=== PATIENT | male | born 1960 | race Hispanic/Latino ===

== ENCOUNTER 2017-04-09 18:25 | Emergency (ER) | payer SELFPAY ==
[2017-04-09] MEDS ORDERED: ACETAMINOPHEN EXTRA STRENGTH 500 MG TABLET ONE (19:38)
[2017-04-09 20:00] LABS: BASOPHILS % (AUTO) 0.3 % (0.0-5.0); HEMATOCRIT 48.1 % (42-54); LYMPHOCYTES % (AUTO) 10.2 % (21.0-51.0); MEAN CORPUSCULAR HEMOGLOBIN 29.7 pg (27.0-33.0); MEAN CORPUSCULAR HGB CONC 33.9 g/dL (32.0-36.0); MEAN CORPUSCULAR VOLUME 87.8 fL (79-99); MONOCYTES % (AUTO) 9.1 % (3.0-13.0); NEUTROPHILS % (AUTO) 80.4 % (40.0-77.0); PLATELET COUNT (AUTO) 147 K/uL (130-400); RED BLOOD CELL COUNT(AUTO) 5.49 MIL/uL (4.50-6.20); RED CELL DISTRIBUTION WIDTH 14.1 % (11.0-15.5); WHITE BLOOD COUNT (AUTO) 5.6 K/uL (4.8-10.8)
[2017-04-09 20:10] LABS: INR 1.02 (0.85-1.15); PARTIAL THROMBOPLASTIN TIME 29.9 SEC (26.3-35.5); PROTHROMBIN TIME 10.7 SEC (9.6-11.6)
[2017-04-09 20:11] LABS: CARBON DIOXIDE 24 mmol/L (21-32); CHLORIDE 95 mmol/L (101-111); CREATININE 1.1 mg/dL (0.5-1.5); GLOMERULAR FILTR. RATE CALC 74 mL/min (>60); GLUCOSE,RANDOM 117 mg/dL (70-105); SODIUM SERUM 128 mmol/L (136-145); UREA NITROGEN, BLOOD 16 mg/dL (7-18)
[2017-04-09] MEDS ORDERED: DiphenhydrAMINE HCL 50 MG/ML VIAL ONE (20:11)
[2017-04-09 20:24] LABS: ALANINE AMINOTRANSFERASE 122 U/L (12-78); ALBUMIN 3.4 g/dL (3.5-5.0); ASPARTATE AMINOTRANSFERASE 181 U/L (10-37); BILIRUBIN,TOTAL 0.8 mg/dL (0.2-1.0); CREATINE KINASE MB < 0.5 ng/mL (0.5-3.6); CREATINE KINASE, TOTAL 322 U/L (21-232); TOTAL PROTEIN, SERUM 7.8 g/dL (6.0-8.3)
[2017-04-09] MEDS ORDERED: IPRATROPIUM/ALBUTEROL SULFATE 3 ML SOLUTION IH ONE (20:54)
[2017-04-09] MEDS ORDERED: GUAIFENESIN-DM 200/20 MG 10 ML ONE (21:13)
== END 2017-04-09 21:34 | disposition home or self-care (01) ==
LOC: EDH 18:25
DX: J06.9 Acute upper respiratory infection, unspecified (principal); R50.9 Fever, unspecified; R19.7 Diarrhea, unspecified; Z88.6 Allergy status to analgesic agent; Z72.0 Tobacco use; Z98.890 Other specified postprocedural states
CPT/HCPCS: 36415; 71045; 80053; 82550; 82553; 84484; 85025; 85610; 85730; 87804 ×2; 93005; 94640; 96374; 99285; J1200

== ENCOUNTER 2018-11-23 19:06 | Emergency (ER) | payer OTHER ==
[2018-11-23] MEDS ORDERED: KETOROLAC TROMETHAMINE 30MG/ML ONE (20:02)
[2018-11-23] MEDS ORDERED: ONDANSETRON HCL 4 MG/2 ML VIAL ONE (20:02)
[2018-11-23] MEDS ORDERED: HYOSCYAMINE SULFATE 0.125 MG TAB.SUBL SL ONE (20:03)
[2018-11-23] MEDS ORDERED: SODIUM CHLORIDE 0.9% 1000ML 1,000 ML IV ONE (20:03)
[2018-11-23 20:07] LABS: BASOPHILS % (AUTO) 0.9 % (0.0-5.0); EOSINOPHILS % (AUTO) 2.6 % (0.0-8.0); HEMATOCRIT 48.3 % (42-54); LYMPHOCYTES % (AUTO) 26.6 % (21.0-51.0); MEAN CORPUSCULAR HEMOGLOBIN 30.9 pg (27.0-33.0); MEAN CORPUSCULAR HGB CONC 34.5 g/dL (32.0-36.0); MEAN CORPUSCULAR VOLUME 89.4 fL (79-99); MONOCYTES % (AUTO) 9.2 % (3.0-13.0); NEUTROPHILS % (AUTO) 60.7 % (40.0-77.0); PLATELET COUNT (AUTO) 230 K/uL (130-400); RED CELL DISTRIBUTION WIDTH 13.3 % (11.0-15.5); WHITE BLOOD COUNT (AUTO) 9.9 K/uL (4.8-10.8)
[2018-11-23 20:15] LABS: POTASSIUM 3.9 mmol/L (3.5-5.1)
[2018-11-23 20:16] LABS: INR 0.96 (0.85-1.15); PARTIAL THROMBOPLASTIN TIME 26.4 SEC (26.3-35.5); PROTHROMBIN TIME 10.1 SEC (9.6-11.6)
[2018-11-23 20:19] LABS: BILIRUBIN,TOTAL 0.7 mg/dL (0.2-1.0); TOTAL PROTEIN, SERUM 7.9 g/dL (6.0-8.3)
[2018-11-23 20:21] LABS: APPEARANCE,URINE Cloudy (CLEAR); BILIRUBIN,URINE Negative (NEGATIVE); COLOR,URINE Dark Yellow (YELLOW); GLUCOSE, URINE (UA) Negative (NEGATIVE); KETONES,URINE Negative (NEGATIVE); LEUKOCYTE ESTERASE ,URINE Negative (NEGATIVE); NITRATE,URINE Negative (NEGATIVE); OCCULT BLOOD,URINE Negative (NEGATIVE); PH,URINE 6.5 (5.0-8.0); PROTEIN,URINE Trace mg/dL (NEGATIVE)
[2018-11-23] MEDS ORDERED: LIDOCAINE HCL 2% VISCOUS 15 ML UDCUP ONE (20:26)
[2018-11-23] MEDS ORDERED: MAG HYDROX/AL HYDROX/SIMETH ES 30 ML SUSP UDCUP ONE (20:26)
[2018-11-23 20:44] LABS: AMORPHOUS SEDIMENT,UR Moderate /LPF (None Seen); BACTERIA,URINE Few /HPF (None Seen); MUCUS,URINE Few LPF (None Seen); SQUAMOUS EPITHELIAL CELL,UR 0-2 /HPF (0-2)
== END 2018-11-23 20:56 | disposition home or self-care (01) ==
LOC: EDH 19:06
DX: K29.00 Acute gastritis without bleeding (principal); R10.13 Epigastric pain; Z72.0 Tobacco use
CPT/HCPCS: 36415; 76705; 80053; 81001; 83690; 85025; 85610; 85730; 96361; 96374; 99285; J1885; J2405; J7030

== ENCOUNTER 2018-11-29 12:50 | Emergency (ER) | payer SELFPAY ==
[2018-11-29] MEDS ORDERED: ONDANSETRON HCL 4 MG/2 ML VIAL ONE (13:03)
[2018-11-29] MEDS ORDERED: MORPHINE SULFATE 4 MG/1ML SYG ONE (13:03)
[2018-11-29] MEDS ORDERED: SODIUM CHLORIDE 0.9% 1000ML 1,000 ML IV ONE (13:04)
[2018-11-29 13:33] LABS: BASOPHILS % (AUTO) 1.1 % (0.0-5.0); EOSINOPHILS % (AUTO) 1.5 % (0.0-8.0); HEMATOCRIT 49.9 % (42-54); LYMPHOCYTES % (AUTO) 26.7 % (21.0-51.0); MEAN CORPUSCULAR HEMOGLOBIN 30.8 pg (27.0-33.0); MEAN CORPUSCULAR HGB CONC 34.7 g/dL (32.0-36.0); MEAN CORPUSCULAR VOLUME 88.6 fL (79-99); MONOCYTES % (AUTO) 8.2 % (3.0-13.0); NEUTROPHILS % (AUTO) 62.5 % (40.0-77.0); NUCLEATED RED BLOOD CELLS 0.1 % (0.0-0.19); PLATELET COUNT (AUTO) 257 K/uL (130-400); RED BLOOD CELL COUNT(AUTO) 5.63 MIL/uL (4.50-6.20); RED CELL DISTRIBUTION WIDTH 13.1 % (11.0-15.5); WHITE BLOOD COUNT (AUTO) 10.2 K/uL (4.8-10.8)
[2018-11-29 13:43] LABS: CREATININE 0.9 mg/dL (0.5-1.5); POTASSIUM 3.9 mmol/L (3.5-5.1)
[2018-11-29 13:44] LABS: INR 1.02 (0.85-1.15); PARTIAL THROMBOPLASTIN TIME 28.2 SEC (26.3-35.5); PROTHROMBIN TIME 10.7 SEC (9.6-11.6)
[2018-11-29 13:49] LABS: ALBUMIN 4.5 g/dL (3.5-5.0); BILIRUBIN,DIRECT 0.2 mg/dL (0.0-0.3); BILIRUBIN,TOTAL 1.4 mg/dL (0.2-1.0); TOTAL PROTEIN, SERUM 8.8 g/dL (6.0-8.3)
[2018-11-29 13:51] LABS: APPEARANCE,URINE Clear (CLEAR); BILIRUBIN,URINE Negative (NEGATIVE); COLOR,URINE Yellow (YELLOW); GLUCOSE, URINE (UA) Negative (NEGATIVE); KETONES,URINE 15 mg/dL (NEGATIVE); LEUKOCYTE ESTERASE ,URINE Negative (NEGATIVE); NITRATE,URINE Negative (NEGATIVE); OCCULT BLOOD,URINE Negative (NEGATIVE); PROTEIN,URINE POS 1+ mg/dL (NEGATIVE)
[2018-11-29 13:58] LABS: AMPHET/METH SCREEN,URINE NEGATIVE (NEGATIVE); BARBITURATE SCREEN, URINE NEGATIVE (NEGATIVE); BENZODIAZEPINES SCREEN,URINE NEGATIVE (NEGATIVE); CANNABINOID SCREEN,URINE NEGATIVE (NEGATIVE); COCAINE SCREEN,URINE NEGATIVE (NEGATIVE); OPIATE SCREEN,URINE POSITIVE (NEGATIVE); PHENCYCLIDINE SCREEN,URINE NEGATIVE (NEGATIVE)
[2018-11-29 14:13] LABS: BACTERIA,URINE Rare /HPF (None Seen); RBC,URINE 0-1 /HPF (0-1); SPERM,URINE Few /HPF (None Seen); SQUAMOUS EPITHELIAL CELL,UR Few /HPF (0-2); WBC,URINE 0-1 /HPF (0-1)
[2018-11-29] MEDS ORDERED: DICYCLOMINE HCL 10 MG/ML 2ML AMP IM ONE (15:02)
[2018-11-29] MEDS ORDERED: HALOPERIDOL LACTATE 5 MG/ML VIAL ONE (15:10)
== END 2018-11-29 16:10 | disposition home or self-care (01) ==
LOC: EDH 12:50
DX: R10.13 Epigastric pain (principal); G89.29 Other chronic pain; R11.2 Nausea with vomiting, unspecified; Z88.6 Allergy status to analgesic agent; Z72.0 Tobacco use
CPT/HCPCS: 36415; 74176; 80048; 80076; 80305; 81001; 82550; 83690; 84484; 85025; 85610; 85730; 93005; 96361; 96372; 96374; 96375; 99285; J0500; J1630; J2270; J2405; J7030

== ENCOUNTER 2018-12-30 02:38 | Inpatient (IN) | payer OTHER, SELFPAY ==
[~2018-12-30] VITALS: Ht 177.8 cm; Wt 64.0 kg
[2018-12-30] VITALS (7 sets, daily range): BP systolic 157–189; BP diastolic 89–108
[2018-12-30] MEDS ORDERED: LIDOCAINE HCL 2% VISCOUS 15 ML UDCUP ONE (02:54)
[2018-12-30] MEDS ORDERED: MAG HYDROX/AL HYDROX/SIMETH ES 30 ML SUSP UDCUP ONE (02:54)
[2018-12-30] MEDS ORDERED: FAMOTIDINE/PF 20 MG/2 ML VIAL IV ONE ×2 (02:55→09:54)
[2018-12-30] MEDS ORDERED: ONDANSETRON HCL 4 MG/2 ML VIAL ONE (02:55)
[2018-12-30] MEDS ORDERED: SODIUM CHLORIDE 0.9% 1000ML 1,000 ML IV ONE ×2 (02:55→04:29)
[2018-12-30 03:04] LABS: BASOPHILS % (AUTO) 0.6 % (0.0-5.0); EOSINOPHILS % (AUTO) 0.4 % (0.0-8.0); HEMATOCRIT 46.5 % (42-54); LYMPHOCYTES % (AUTO) 5.3 % (21.0-51.0); MEAN CORPUSCULAR HEMOGLOBIN 30.1 pg (27.0-33.0); MEAN CORPUSCULAR HGB CONC 34.3 g/dL (32.0-36.0); MEAN CORPUSCULAR VOLUME 87.9 fL (79-99); MONOCYTES % (AUTO) 5.1 % (3.0-13.0); NEUTROPHILS % (AUTO) 88.6 % (40.0-77.0); PLATELET COUNT (AUTO) 273 K/uL (130-400); RED BLOOD CELL COUNT(AUTO) 5.29 MIL/uL (4.50-6.20); RED CELL DISTRIBUTION WIDTH 13.1 % (11.0-15.5); WHITE BLOOD COUNT (AUTO) 15.4 K/uL (4.8-10.8)
[2018-12-30 03:08] LABS: POTASSIUM 3.1 mmol/L (3.5-5.1)
[2018-12-30 03:13] LABS: ALBUMIN 4.4 g/dL (3.5-5.0); BILIRUBIN,TOTAL 1.7 mg/dL (0.2-1.0); TOTAL PROTEIN, SERUM 9.2 g/dL (6.0-8.3)
[2018-12-30] MEDS ORDERED: DiphenhydrAMINE HCL 50 MG/ML VIAL ONE (03:13)
[2018-12-30] MEDS ORDERED: PROCHLORPERAZINE EDISYLATE 10 MG/2 ML VIAL ONE (03:13)
[2018-12-30 03:32] LABS: AMPHET/METH SCREEN,URINE NEGATIVE (NEGATIVE); BARBITURATE SCREEN, URINE NEGATIVE (NEGATIVE); BENZODIAZEPINES SCREEN,URINE NEGATIVE (NEGATIVE); CANNABINOID SCREEN,URINE NEGATIVE (NEGATIVE); COCAINE SCREEN,URINE NEGATIVE (NEGATIVE); OPIATE SCREEN,URINE NEGATIVE (NEGATIVE); PHENCYCLIDINE SCREEN,URINE NEGATIVE (NEGATIVE)
[2018-12-30] MEDS ORDERED: MEPERIDINE-PF 50 MG/ML SYG ONE (03:42)
[2018-12-30] MEDS ORDERED: HALOPERIDOL LACTATE 5 MG/ML VIAL ONE (03:45)
[2018-12-30] MEDS ORDERED: IOHEXOL-350 75 ML VIAL IV ONE (04:23)
[2018-12-30] MEDS: LACTATED RINGERS 1000ML 1,000 ML IV SCH ×2 (05:30→17:30)
[2018-12-30] MEDS ORDERED: ONDANSETRON HCL 4 MG/2 ML VIAL IV PRN (05:30)
[2018-12-30] MEDS ORDERED: HYDROMORPHONE 4MG/ML 1ML VIAL IVP PRN (05:30)
[2018-12-30 05:32] LABS: APPEARANCE,URINE Clear (CLEAR); BILIRUBIN,URINE Small (NEGATIVE); COLOR,URINE Dark Yellow (YELLOW); GLUCOSE, URINE (UA) TRACE mg/dL (NEGATIVE); KETONES,URINE >=160 mg/dL (NEGATIVE); LEUKOCYTE ESTERASE ,URINE Trace (NEGATIVE); NITRATE,URINE Negative (NEGATIVE); OCCULT BLOOD,URINE Negative (NEGATIVE); PH,URINE 8.5 (5.0-8.0); PROTEIN,URINE POS 2+ mg/dL (NEGATIVE)
[2018-12-30] MEDS ORDERED: HYDROMORPHONE 1 MG/1 ML AMP ONE ×2 (05:45→10:12)
[2018-12-30] MEDS ORDERED: HYDRALAZINE HCL 20 MG/ML VIAL ONE (06:04)
[2018-12-30 06:55] LABS: RBC,URINE 0-1 /HPF (0-1)
[2018-12-30 06:56] LABS: BACTERIA,URINE Rare /HPF (None Seen); MUCUS,URINE Many LPF (None Seen); SQUAMOUS EPITHELIAL CELL,UR Rare /HPF (0-2)
[2018-12-30] MEDS: FAMOTIDINE/PF 20 MG/2 ML VIAL IV SCH ×2 (09:00→20:29)
[2018-12-30] MEDS: LISINOPRIL 10 MG TABLET PO SCH ×2 (09:00→17:27)
[2018-12-30] MEDS: HYDROCHLOROTHIAZIDE 25 MG TABLET PO SCH (09:00)
[2018-12-30] MEDS ORDERED: LISINOPRIL 5 MG TABLET ONE (09:41)
[2018-12-30] MEDS ORDERED: HYDROCHLOROTHIAZIDE 25 MG TABLET ONE (09:42)
[2018-12-30] MEDS ORDERED: POTASSIUM CHLORIDE 20MEQ/100ML 100 ML IV ONE (09:54)
[2018-12-30] MEDS ORDERED: HYDROMORPHONE HCL 0.5 MG/0.5 ML ML ONE (13:57)
[2018-12-30] MEDS: LIDOCAINE HCL-MPF 1% 2ML VIAL IV PRN (15:46)
[2018-12-30] MEDS: POTASSIUM CHLORIDE 20MEQ/100ML 100 ML IV PRN (15:47)
[2018-12-30] MEDS: HYDROMORPHONE HCL 0.5 MG/0.5 ML ML IVP PRN ×2 (19:43→23:49)
[2018-12-30] MEDS: HYDRALAZINE HCL 20 MG/ML VIAL IV PRN (20:43)
[2018-12-31] VITALS (9 sets, daily range): BP systolic 141–185; BP diastolic 79–105
[2018-12-31] MEDS: HYDROMORPHONE HCL 0.5 MG/0.5 ML ML IVP PRN ×2 (03:56→11:20)
[2018-12-31 05:02] LABS: BASOPHILS % (AUTO) 0.3 % (0.0-5.0); EOSINOPHILS % (AUTO) 1.7 % (0.0-8.0); HEMATOCRIT 42.1 % (42-54); LYMPHOCYTES % (AUTO) 8.3 % (21.0-51.0); MEAN CORPUSCULAR HEMOGLOBIN 29.8 pg (27.0-33.0); MEAN CORPUSCULAR HGB CONC 33.6 g/dL (32.0-36.0); MEAN CORPUSCULAR VOLUME 88.5 fL (79-99); MONOCYTES % (AUTO) 8.5 % (3.0-13.0); NEUTROPHILS % (AUTO) 81.2 % (40.0-77.0); PLATELET COUNT (AUTO) 249 K/uL (130-400); RED BLOOD CELL COUNT(AUTO) 4.75 MIL/uL (4.50-6.20); RED CELL DISTRIBUTION WIDTH 13.1 % (11.0-15.5); WHITE BLOOD COUNT (AUTO) 14.7 K/uL (4.8-10.8)
[2018-12-31 05:32] LABS: ALBUMIN 3.5 g/dL (3.5-5.0); BILIRUBIN,TOTAL 0.9 mg/dL (0.2-1.0); CREATININE 0.7 mg/dL (0.5-1.5); MAGNESIUM 2.1 mg/dL (1.80-2.40); POTASSIUM 3.1 mmol/L (3.5-5.1); TOTAL PROTEIN, SERUM 7.9 g/dL (6.0-8.3)
[2018-12-31 05:37] LABS: HEMOGLOBIN A1C 6.3 % (4.0-6.0)
[2018-12-31] MEDS: LIDOCAINE HCL-MPF 1% 2ML VIAL IV PRN (05:56)
[2018-12-31] MEDS: POTASSIUM CHLORIDE 20MEQ/100ML 100 ML IV PRN (05:57)
[2018-12-31] MEDS ORDERED: HYDROMORPHONE 1 MG/1 ML AMP IVP SCH (06:30)
[2018-12-31] MEDS: HYDROCHLOROTHIAZIDE 25 MG TABLET PO SCH (08:53)
[2018-12-31] MEDS: FAMOTIDINE/PF 20 MG/2 ML VIAL IV SCH ×2 (08:53→19:49)
[2018-12-31] MEDS: LISINOPRIL 10 MG TABLET PO SCH (08:53)
[2018-12-31] MEDS: HYDRALAZINE HCL 20 MG/ML VIAL IV PRN ×2 (11:08→21:08)
[2018-12-31] MEDS: LACTATED RINGERS 1000ML 1,000 ML IV SCH ×2 (11:08→19:50)
--- NOTE | 2018-12-31 12:17 | NUR ---
DCP CM met with pt discussed dc plans. Pt is independent prior to admission, lives at home w/spouse. Denies any equipments/services. Pt feels safe to go back home, still drives, spouse able to assist with transportation and needs as necessary. DC plan to home once stable. CM to cont to follow up. Addendum: 12/31/18 at 1218 by FRANCES HAWKINS LVN CM Amended: Links added.
--- NOTE | 2018-12-31 13:57 | NUR ---
RD NOTIFICATION DX: ACUTE PANCREATITIS. DIET: NPO. LBM: PT CLAIMS NOT TO HAVE A BM X4DAYS AGO. EMESIS EPISODES IMPROVED PER PT. PT CONTINUES WITH POOR APPETITE. PT HAVING ABDOMINAL PAIN X3 MONTHS AND NOT EATING WELL FOR 3 MONTHS PRIOR TO ADMISSION. USUAL BODY WEIGHT: 215# 3 MONTHS AGO. PT WITH 22% WEIGHT LOSS IN 3 MONTHS; INDICATION OF MALNUTRITION. THERE IS PHYSICAL EVIDENCE OF MILD FAT/ MUSCLE LOSS. RD RECOMMENDS CONTINUE NPO. ADVANCE DIET TOLERATED WHEN MEDICALLY FEASIBLE TO CLEAR LIQUIDS, FULL LIQUIDS. RD PENDING PANCREATITIS DIET AND NUTRITION EDUCATION. RD WILL CONTINUE TO MONITOR AND FOLLOW UP NEEDED. THANK YOU. Addendum: 12/31/18 at [address] RD Amended: Links added.
[2018-12-31] MEDS: HYDROMORPHONE 1 MG/1 ML AMP IVP PRN ×3 (15:49→23:57)
[2019-01-01] VITALS (7 sets, daily range): BP systolic 154–189; BP diastolic 91–107
[2019-01-01] MEDS: HYDROMORPHONE 1 MG/1 ML AMP IVP PRN ×6 (04:02→23:49)
[2019-01-01 05:35] LABS: BASOPHILS % (AUTO) 0.8 % (0.0-5.0); EOSINOPHILS % (AUTO) 2.2 % (0.0-8.0); HEMATOCRIT 40.9 % (42-54); LYMPHOCYTES % (AUTO) 8.9 % (21.0-51.0); MEAN CORPUSCULAR HEMOGLOBIN 30.1 pg (27.0-33.0); MEAN CORPUSCULAR HGB CONC 34.4 g/dL (32.0-36.0); MEAN CORPUSCULAR VOLUME 87.5 fL (79-99); NEUTROPHILS % (AUTO) 79.1 % (40.0-77.0); PLATELET COUNT (AUTO) 301 K/uL (130-400); RED BLOOD CELL COUNT(AUTO) 4.68 MIL/uL (4.50-6.20); RED CELL DISTRIBUTION WIDTH 13.4 % (11.0-15.5); WHITE BLOOD COUNT (AUTO) 14.6 K/uL (4.8-10.8)
[2019-01-01 05:55] LABS: CREATININE 0.7 mg/dL (0.5-1.5); POTASSIUM 3.3 mmol/L (3.5-5.1)
[2019-01-01] MEDS: POTASSIUM CHLORIDE 20MEQ/100ML 100 ML IV PRN ×2 (06:09→20:12)
[2019-01-01] MEDS: LISINOPRIL 10 MG TABLET PO SCH (10:15)
[2019-01-01] MEDS: FAMOTIDINE/PF 20 MG/2 ML VIAL IV SCH ×2 (10:16→20:11)
[2019-01-01] MEDS: HYDROCHLOROTHIAZIDE 25 MG TABLET PO SCH (10:16)
[2019-01-01] MEDS: HYDRALAZINE HCL 20 MG/ML VIAL IV PRN ×2 (10:19→20:12)
[2019-01-01] MEDS: LACTATED RINGERS 1000ML 1,000 ML IV SCH ×2 (10:50→20:11)
[2019-01-02] VITALS: BP_SYST 130; BP_SYST 145; BP_DIAS 73; BP_DIAS 92
[2019-01-02] MEDS: HYDROMORPHONE 1 MG/1 ML AMP IVP PRN ×4 (03:54→18:00)
[2019-01-02 04:00] VITALS: BP 148/92
[2019-01-02 06:31] LABS: BASOPHILS % (AUTO) 0.5 % (0.0-5.0); EOSINOPHILS % (AUTO) 3.3 % (0.0-8.0); HEMATOCRIT 41.2 % (42-54); LYMPHOCYTES % (AUTO) 10.5 % (21.0-51.0); MEAN CORPUSCULAR HEMOGLOBIN 30.4 pg (27.0-33.0); MEAN CORPUSCULAR HGB CONC 34.7 g/dL (32.0-36.0); MEAN CORPUSCULAR VOLUME 87.7 fL (79-99); NEUTROPHILS % (AUTO) 74.7 % (40.0-77.0); PLATELET COUNT (AUTO) 294 K/uL (130-400); RED BLOOD CELL COUNT(AUTO) 4.69 MIL/uL (4.50-6.20); RED CELL DISTRIBUTION WIDTH 13.1 % (11.0-15.5)
[2019-01-02 07:54] VITALS: BP 163/105
--- NOTE | 2019-01-02 08:00 | NUR ---
AM SHIFT ASSESSMENT, C/O OF SEVERE PAIN TO ABD.
[2019-01-02] MEDS: HYDROCHLOROTHIAZIDE 25 MG TABLET PO SCH (08:23)
[2019-01-02] MEDS: FAMOTIDINE/PF 20 MG/2 ML VIAL IV SCH ×2 (08:23→20:27)
[2019-01-02] MEDS: LISINOPRIL 10 MG TABLET PO SCH (08:23)
[2019-01-02 08:50] LABS: CREATININE 0.7 mg/dL (0.5-1.5)
[2019-01-02 09:59] LABS: POTASSIUM 3.7 mmol/L (3.5-5.1)
[2019-01-02 12:00] VITALS: BP 171/108
[2019-01-02] MEDS: LACTATED RINGERS 1000ML 1,000 ML IV SCH (12:05)
[2019-01-02] MEDS: CEFTRIAXONE SODIUM 2 GM VIAL IVP SCH (13:14)
[2019-01-02] MEDS: HYDRALAZINE HCL 20 MG/ML VIAL IV PRN (13:14)
[2019-01-02] MEDS ORDERED: BISACODYL 10 MG SUPP.RECT RC PRN (13:15)
--- NOTE | 2019-01-02 14:30 | NUR ---
AFTER DOSE F TORADOL GIVEN VOICED MUCH PAIN RELIEF, WAS FINALLY ABLE TO REST.
[2019-01-02] MEDS: KETOROLAC TROMETHAMINE 30MG/ML IM PRN ×2 (14:32→21:13)
[2019-01-02 16:00] VITALS: BP 132/81
[2019-01-02 20:00] VITALS: BP 138/80
[2019-01-03] VITALS (7 sets, daily range): BP systolic 130–181; BP diastolic 73–96
[2019-01-03] MEDS: HYDROMORPHONE 1 MG/1 ML AMP IVP PRN ×3 (02:18→20:11)
[2019-01-03] MEDS: LACTATED RINGERS 1000ML 1,000 ML IV SCH (02:21)
[2019-01-03] MEDS: KETOROLAC TROMETHAMINE 30MG/ML IM PRN ×2 (04:19→11:45)
[2019-01-03 04:37] LABS: BASOPHILS % (AUTO) 0.9 % (0.0-5.0); EOSINOPHILS % (AUTO) 5.3 % (0.0-8.0); HEMATOCRIT 39.6 % (42-54); LYMPHOCYTES % (AUTO) 12.9 % (21.0-51.0); MEAN CORPUSCULAR HEMOGLOBIN 30.1 pg (27.0-33.0); MEAN CORPUSCULAR HGB CONC 34.4 g/dL (32.0-36.0); MEAN CORPUSCULAR VOLUME 87.6 fL (79-99); MONOCYTES % (AUTO) 10.5 % (3.0-13.0); NEUTROPHILS % (AUTO) 70.4 % (40.0-77.0); PLATELET COUNT (AUTO) 283 K/uL (130-400); RED BLOOD CELL COUNT(AUTO) 4.53 MIL/uL (4.50-6.20); RED CELL DISTRIBUTION WIDTH 13.5 % (11.0-15.5); WHITE BLOOD COUNT (AUTO) 12.1 K/uL (4.8-10.8)
[2019-01-03 05:07] LABS: CREATININE 0.8 mg/dL (0.5-1.5); POTASSIUM 3.2 mmol/L (3.5-5.1)
[2019-01-03] MEDS: POTASSIUM CHLORIDE 20MEQ/100ML 100 ML IV PRN (05:44)
[2019-01-03] MEDS ORDERED: POTASSIUM CHLORIDE 20 MEQ ERTAB PO ONE (09:13)
[2019-01-03] MEDS: HYDROCHLOROTHIAZIDE 25 MG TABLET PO SCH (09:20)
[2019-01-03] MEDS: LISINOPRIL 10 MG TABLET PO SCH (09:20)
[2019-01-03] MEDS: FAMOTIDINE/PF 20 MG/2 ML VIAL IV SCH ×2 (09:21→20:12)
[2019-01-03] MEDS: CEFTRIAXONE SODIUM 2 GM VIAL IVP SCH (11:45)
[2019-01-03] MEDS: HYDRALAZINE HCL 20 MG/ML VIAL IV PRN (11:45)
[2019-01-03] MEDS: DEXTROSE 5 % AND 0.9 % NACL 1,000 ML IV SCH (15:59)
[2019-01-03] MEDS: KETOROLAC TROMETHAMINE 30MG/ML IV PRN ×2 (16:00→22:57)
[2019-01-04 00:37] VITALS: BP 155/87
[2019-01-04] MEDS: HYDROMORPHONE 1 MG/1 ML AMP IVP PRN ×6 (01:20→22:55)
[2019-01-04] MEDS: DEXTROSE 5 % AND 0.9 % NACL 1,000 ML IV SCH ×4 (01:25→19:58)
[2019-01-04 03:49] VITALS: BP 157/84
[2019-01-04] MEDS: KETOROLAC TROMETHAMINE 30MG/ML IV PRN ×3 (04:32→19:57)
[2019-01-04 05:02] LABS: BASOPHILS % (AUTO) 0.9 % (0.0-5.0); EOSINOPHILS % (AUTO) 6.6 % (0.0-8.0); HEMATOCRIT 36.9 % (42-54); LYMPHOCYTES % (AUTO) 20.2 % (21.0-51.0); MEAN CORPUSCULAR HEMOGLOBIN 30.7 pg (27.0-33.0); MEAN CORPUSCULAR HGB CONC 35.2 g/dL (32.0-36.0); MEAN CORPUSCULAR VOLUME 87.4 fL (79-99); NEUTROPHILS % (AUTO) 60.3 % (40.0-77.0); PLATELET COUNT (AUTO) 263 K/uL (130-400); RED BLOOD CELL COUNT(AUTO) 4.22 MIL/uL (4.50-6.20); RED CELL DISTRIBUTION WIDTH 12.9 % (11.0-15.5); WHITE BLOOD COUNT (AUTO) 8.9 K/uL (4.8-10.8)
[2019-01-04 05:31] LABS: ALBUMIN 2.7 g/dL (3.5-5.0); BILIRUBIN,TOTAL 1.1 mg/dL (0.2-1.0); CREATININE 0.7 mg/dL (0.5-1.5); TOTAL PROTEIN, SERUM 6.9 g/dL (6.0-8.3)
[2019-01-04 05:35] LABS: POTASSIUM 2.9 mmol/L (3.5-5.1)
[2019-01-04] MEDS: LIDOCAINE HCL-MPF 1% 2ML VIAL IV PRN ×2 (05:46→08:31)
[2019-01-04] MEDS: POTASSIUM CHLORIDE 20MEQ/100ML 100 ML IV PRN ×3 (05:46→22:05)
[2019-01-04 07:00] VITALS: BP 149/82
[2019-01-04] MEDS: FAMOTIDINE/PF 20 MG/2 ML VIAL IV SCH ×2 (08:30→22:05)
[2019-01-04] MEDS ORDERED: GADODIAMIDE 10 MMOL/20 ML VIAL IV ONE (08:56)
[2019-01-04] MEDS: HYDROCHLOROTHIAZIDE 25 MG TABLET PO SCH (10:31)
[2019-01-04] MEDS: LISINOPRIL 10 MG TABLET PO SCH (10:31)
[2019-01-04 12:00] VITALS: BP 172/90
[2019-01-04] MEDS: CEFTRIAXONE SODIUM 2 GM VIAL IVP SCH (12:58)
[2019-01-04] MEDS ORDERED: POTASSIUM CHLORIDE 20MEQ/100ML 100 ML IV PRN ×2 (14:15)
[2019-01-04 16:00] VITALS: BP 165/82
[2019-01-04 20:00] VITALS: BP 188/90
--- NOTE | 2019-01-04 22:30 | NUR ---
potassium spoke to STREET ROLLER ENGINEER organic extractions technician Judie Dias about patient's critical potassium level of 2.9. He said to continue the potassium protocol replacement. Regarding patient's continuous abdominal pain, he said to continue alternating between Dilaudid and Ketoralac pain medications throughout the night.
[2019-01-04] MEDS: HYDRALAZINE HCL 20 MG/ML VIAL IV PRN (22:35)
[2019-01-05] VITALS (7 sets, daily range): BP systolic 132–180; BP diastolic 74–96
[2019-01-05] MEDS: POTASSIUM CHLORIDE 20MEQ/100ML 100 ML IV PRN ×2 (01:15→09:39)
[2019-01-05] MEDS: LIDOCAINE HCL-MPF 1% 2ML VIAL IV PRN ×3 (01:19→09:39)
[2019-01-05] MEDS: KETOROLAC TROMETHAMINE 30MG/ML IV PRN ×5 (02:33→23:04)
[2019-01-05] MEDS: DEXTROSE 5 % AND 0.9 % NACL 1,000 ML IV SCH ×2 (02:56→11:34)
[2019-01-05] MEDS: HYDROMORPHONE 1 MG/1 ML AMP IVP PRN ×3 (03:32→20:20)
[2019-01-05 05:11] LABS: EOSINOPHILS % (AUTO) 5.5 % (0.0-8.0); HEMATOCRIT 35.1 % (42-54); LYMPHOCYTES % (AUTO) 13.9 % (21.0-51.0); MEAN CORPUSCULAR HEMOGLOBIN 30.9 pg (27.0-33.0); MEAN CORPUSCULAR HGB CONC 35.9 g/dL (32.0-36.0); MEAN CORPUSCULAR VOLUME 86.1 fL (79-99); MONOCYTES % (AUTO) 11.4 % (3.0-13.0); NEUTROPHILS % (AUTO) 68.2 % (40.0-77.0); PLATELET COUNT (AUTO) 294 K/uL (130-400); RED BLOOD CELL COUNT(AUTO) 4.08 MIL/uL (4.50-6.20); RED CELL DISTRIBUTION WIDTH 12.9 % (11.0-15.5); WHITE BLOOD COUNT (AUTO) 8.1 K/uL (4.8-10.8)
[2019-01-05 05:25] LABS: ALBUMIN 2.8 g/dL (3.5-5.0); CREATININE 0.6 mg/dL (0.5-1.5); MAGNESIUM 1.6 mg/dL (1.80-2.40); POTASSIUM 3.3 mmol/L (3.5-5.1); TOTAL PROTEIN, SERUM 7.1 g/dL (6.0-8.3)
[2019-01-05] MEDS: MAGNESIUM 2GM PREMIX 50ML 50 ML IV PRN (06:19)
[2019-01-05] MEDS: FAMOTIDINE/PF 20 MG/2 ML VIAL IV SCH ×2 (09:37→20:19)
[2019-01-05] MEDS: LISINOPRIL 10 MG TABLET PO SCH (09:38)
[2019-01-05] MEDS: HYDROCHLOROTHIAZIDE 25 MG TABLET PO SCH (09:50)
[2019-01-05] MEDS: CEFTRIAXONE SODIUM 2 GM VIAL IVP SCH (11:34)
--- NOTE | 2019-01-05 13:30 | NUR ---
Received verbal order from Dr. Nicholas for Dobhoff tube to be placed, leave metal wire inserted, CXR to verify placement and not to be used until in small intestine. Dobhoff tube placed by Jerry Sorenson RN to [facility] with patient assisting with swallowing motion. CXR ordered to verify placement. Pt reports feeling tube in back of throat. No coiling noted at back of throat. Tolerated procedure.
--- NOTE | 2019-01-05 14:49 | NUR ---
RD FOLLOW UP Pt NPO X6days; Recommend Altered Means Nutrition Pt to initiate dobhoff trials, low rate tube feeding as per RN. Recommend Jevity 1.5, continuous, initiate 10mls/hr for first 5hrs, increase by 5mls Q5hrs to goal of 25mls for at least 24hrs. Recommendations placed in Pt chart, discussed with RN. RD to follow up. If tube feedings not tolerated, Recommend TPN (Clinimix 5/15 @83mls/hr). 20% Intralipid contraindicated secondary to elevated Lipase (9605), severe pancreatitis. Pt with severe pancreatitis. Pt monitored labs: Na 135, K 3.3, Cl 100, BUN 4, Glu 125, Mg 1.60, Alb 2.8, Lipase 9605, Amylase 255. RD to continue to monitor. Please notify RD as additional nutrition concerns arise. Thank you. Addendum: 01/05/19 at [address] RD Amended: Links added.
--- NOTE | 2019-01-05 20:03 | NUR ---
dr. bernard was inform of the hida scan result; abdomanl cbd ef. no orders given but verbalized that he will put surgery consult. Addendum: 01/05/19 at 2007 by GERALD GARCÍA RN RN disregard note
--- NOTE | 2019-01-05 20:05 | NUR ---
abnormal gallbladder ef. Addendum: 01/05/19 at 2008 by GERALD GARCÍA RN RN dr. bernard notified of the hida scan result which is abdomal gallbladder ejection fraction
--- NOTE | 2019-01-05 23:20 | NUR ---
DOBHOFF cannot be inserted further: Dobhoff at level 60 and cannot be inserted further to 75-80 , since pt was complaining of pain. On- call hospitalist ( AZEEM Dias) notified thru phone and verbalized its ok not to further insert if pt is in pain. Further instructed to follow up surgery consult in AM. Day shift nurse made aware.
[2019-01-06] MEDS: DEXTROSE 5 % AND 0.9 % NACL 1,000 ML IV SCH ×3 (01:16→17:11)
[2019-01-06] MEDS: HYDROMORPHONE 1 MG/1 ML AMP IVP PRN ×5 (01:17→23:19)
[2019-01-06 04:02] VITALS: BP 157/94
[2019-01-06] MEDS: KETOROLAC TROMETHAMINE 30MG/ML IV PRN ×4 (04:43→21:16)
[2019-01-06 06:02] LABS: BASOPHILS % (AUTO) 0.8 % (0.0-5.0); EOSINOPHILS % (AUTO) 7.5 % (0.0-8.0); HEMATOCRIT 35.8 % (42-54); LYMPHOCYTES % (AUTO) 20.7 % (21.0-51.0); MEAN CORPUSCULAR HEMOGLOBIN 30.6 pg (27.0-33.0); MEAN CORPUSCULAR HGB CONC 35.2 g/dL (32.0-36.0); MONOCYTES % (AUTO) 12.1 % (3.0-13.0); NEUTROPHILS % (AUTO) 58.9 % (40.0-77.0); PLATELET COUNT (AUTO) 287 K/uL (130-400); RED BLOOD CELL COUNT(AUTO) 4.12 MIL/uL (4.50-6.20); WHITE BLOOD COUNT (AUTO) 7.5 K/uL (4.8-10.8)
[2019-01-06 06:20] LABS: ALBUMIN 2.8 g/dL (3.5-5.0); CREATININE 0.6 mg/dL (0.5-1.5); TOTAL PROTEIN, SERUM 7.1 g/dL (6.0-8.3)
[2019-01-06 06:27] LABS: POTASSIUM 2.9 mmol/L (3.5-5.1)
[2019-01-06] MEDS: LIDOCAINE HCL-MPF 1% 2ML VIAL IV PRN ×2 (06:43→21:29)
[2019-01-06] MEDS: POTASSIUM CHLORIDE 20MEQ/100ML 100 ML IV PRN ×3 (06:43→21:29)
[2019-01-06 07:30] VITALS: BP 174/89
[2019-01-06] MEDS: FAMOTIDINE/PF 20 MG/2 ML VIAL IV SCH ×2 (08:26→21:16)
[2019-01-06] MEDS: HYDROCHLOROTHIAZIDE 25 MG TABLET PO SCH (08:32)
[2019-01-06] MEDS: LISINOPRIL 10 MG TABLET PO SCH (08:32)
--- NOTE | 2019-01-06 10:47 | NUR ---
Per [facility] for Dr. Ayala and KYE Dasilva Scan showing biliary dyskinesia,no surgical intervention at this time due to elevated lipase and amylase. Stated should be strict NPO, and check with hospitalist for recommendations on Dobhoff tube.
[2019-01-06 11:00] VITALS: BP 160/99
[2019-01-06] MEDS: CEFTRIAXONE SODIUM 2 GM VIAL IVP SCH (13:04)
[2019-01-06 16:00] VITALS: BP 163/92
--- NOTE | 2019-01-06 16:08 | NUR ---
Informed Dr. Calero of patient's request to remove Dobhoff and refusal form signature attained. Reviewed patient's response to current pain medication. Verbal order received to increase Hydromorphone to 1 mg IVP, Q4h for severe pain to mid abdomen. Physician informed of Surgery's [facility] to maintain strict NPO status.
[2019-01-06] MEDS: MAGNESIUM 2GM PREMIX 50ML 50 ML IV PRN (17:12)
[2019-01-06 21:03] VITALS: BP 178/95
[2019-01-07] VITALS (8 sets, daily range): BP systolic 150–199; BP diastolic 84–113
[2019-01-07] MEDS: DEXTROSE 5 % AND 0.9 % NACL 1,000 ML IV SCH ×4 (02:49→20:46)
[2019-01-07] MEDS: KETOROLAC TROMETHAMINE 30MG/ML IV PRN ×2 (02:56→08:16)
[2019-01-07 04:32] LABS: BASOPHILS % (AUTO) 1.1 % (0.0-5.0); EOSINOPHILS % (AUTO) 8.6 % (0.0-8.0); HEMATOCRIT 36.3 % (42-54); LYMPHOCYTES % (AUTO) 17.7 % (21.0-51.0); MEAN CORPUSCULAR HEMOGLOBIN 30.2 pg (27.0-33.0); MEAN CORPUSCULAR HGB CONC 34.9 g/dL (32.0-36.0); MEAN CORPUSCULAR VOLUME 86.6 fL (79-99); MONOCYTES % (AUTO) 12.3 % (3.0-13.0); NEUTROPHILS % (AUTO) 60.3 % (40.0-77.0); PLATELET COUNT (AUTO) 288 K/uL (130-400); RED BLOOD CELL COUNT(AUTO) 4.19 MIL/uL (4.50-6.20); RED CELL DISTRIBUTION WIDTH 12.9 % (11.0-15.5); WHITE BLOOD COUNT (AUTO) 7.4 K/uL (4.8-10.8)
[2019-01-07 05:04] LABS: ALBUMIN 2.9 g/dL (3.5-5.0); CREATININE 0.7 mg/dL (0.5-1.5); POTASSIUM 3.3 mmol/L (3.5-5.1); TOTAL PROTEIN, SERUM 7.1 g/dL (6.0-8.3)
[2019-01-07] MEDS: LIDOCAINE HCL-MPF 1% 2ML VIAL IV PRN ×2 (06:04→12:38)
[2019-01-07] MEDS: POTASSIUM CHLORIDE 20MEQ/100ML 100 ML IV PRN ×2 (06:05→11:46)
[2019-01-07] MEDS: HYDROMORPHONE 1 MG/1 ML AMP IVP PRN ×3 (06:05→14:39)
[2019-01-07] MEDS: FAMOTIDINE/PF 20 MG/2 ML VIAL IV SCH (08:12)
[2019-01-07] MEDS: HYDROCHLOROTHIAZIDE 25 MG TABLET PO SCH (08:13)
[2019-01-07] MEDS: POTASSIUM CHLORIDE 20 MEQ ERTAB PO PRN (08:13)
[2019-01-07] MEDS: LISINOPRIL 10 MG TABLET PO SCH (08:13)
--- NOTE | 2019-01-07 10:45 | NUR ---
Nu Sage RN called for [place] in Dietary department for PPN recommendations and dietary consult to proceed with initiation of PPN. Left message.
--- NOTE | 2019-01-07 11:06 | NUR ---
Nutrition Follow-up: Pt. with severe pancreatitis. Nutrition consult for PPN recommendations. Pt. with Peripheral IV in place. Pt. NPO x 8 days. Pt. c/o abd. pain; no c/o N/V at this time. Labs reviewed(Na 134, K 3.3, Cl 100, BG 127, Lipase 7379, Amylase 255, Alb 2.9). LBM: 01/03/19. SR-17, elastic. Recommendations: 1) Rec. PPN Clinimix 4.25/5@80ml/hr. 2) Continue to monitor pt's nutritional status. 3) Consult RD as nutrition concerns arise. Addendum: 01/07/19 at [address] Amended: Links added.
[2019-01-07] MEDS: CEFTRIAXONE SODIUM 2 GM VIAL IVP SCH (11:44)
--- NOTE | 2019-01-07 13:30 | NUR ---
Lo Sage RN called [place] at Dietary department to inquire of dietary consult to proceed with initiation of PPN. Left message.
[2019-01-07] MEDS ORDERED: MORPHINE SULFATE 2 MG/ML 1ML SYG IVP ONE (16:15)
[2019-01-07] MEDS ORDERED: MORPHINE SULFATE 2 MG/ML 1ML SYG ONE (16:22)
[2019-01-07] MEDS: HYDRALAZINE HCL 20 MG/ML VIAL IV PRN (16:29)
[2019-01-07] MEDS ORDERED: MORPHINE SULFATE 4 MG/1ML SYG IV PRN (16:30)
[2019-01-07] MEDS ORDERED: HYDROMORPHONE 1 MG/1 ML AMP IVP PRN (17:45)
[2019-01-07] MEDS: PANTOPRAZOLE 40 MG/VIAL IVP SCH (20:23)
[2019-01-07] MEDS ORDERED: HYDROMORPHONE 1 MG/1 ML AMP ONE (22:29)
[2019-01-07] MEDS ORDERED: PROMETHAZINE HCL 25 MG/ML 1ML AMPULE IM PRN (22:30)
[2019-01-07] MEDS ORDERED: HYDROMORPHONE 1 MG/1 ML AMP IVP ONE (23:00)
[2019-01-08] MEDS ORDERED: HYDROMORPHONE 1 MG/1 ML AMP IVP PRN (01:45)
[2019-01-08 03:00] VITALS: BP 187/98
[2019-01-08] MEDS: DEXTROSE 5 % AND 0.9 % NACL 1,000 ML IV SCH ×2 (03:32→12:44)
[2019-01-08] MEDS: HYDRALAZINE HCL 20 MG/ML VIAL IV PRN ×2 (03:36→09:21)
[2019-01-08] MEDS ORDERED: ACETAMINOPHEN-CODEINE 300/30MG TAB PO PRN (05:00)
[2019-01-08] MEDS ORDERED: HYDROMORPHONE HCL 2 MG/ML VIAL IVP PRN (05:00)
[2019-01-08] MEDS ORDERED: HYDROMORPHONE 1 MG/1 ML AMP ONE (05:08)
[2019-01-08 07:05] LABS: BASOPHILS % (AUTO) 0.9 % (0.0-5.0); HEMATOCRIT 39.8 % (42-54); LYMPHOCYTES % (AUTO) 12.7 % (21.0-51.0); MEAN CORPUSCULAR HEMOGLOBIN 30.3 pg (27.0-33.0); MEAN CORPUSCULAR HGB CONC 35.1 g/dL (32.0-36.0); MEAN CORPUSCULAR VOLUME 86.4 fL (79-99); MONOCYTES % (AUTO) 11.6 % (3.0-13.0); NEUTROPHILS % (AUTO) 72.8 % (40.0-77.0); NUCLEATED RED BLOOD CELLS 0.1 % (0.0-0.19); PLATELET COUNT (AUTO) 347 K/uL (130-400); RED BLOOD CELL COUNT(AUTO) 4.61 MIL/uL (4.50-6.20)
[2019-01-08 07:17] LABS: ALBUMIN 3.4 g/dL (3.5-5.0); BILIRUBIN,TOTAL 1.3 mg/dL (0.2-1.0); CREATININE 0.8 mg/dL (0.5-1.5); POTASSIUM 3.5 mmol/L (3.5-5.1); TOTAL PROTEIN, SERUM 8.2 g/dL (6.0-8.3)
[2019-01-08 08:00] VITALS: BP 182/95
[2019-01-08] MEDS: HYDROCHLOROTHIAZIDE 25 MG TABLET PO SCH (09:00)
[2019-01-08] MEDS: PANTOPRAZOLE 40 MG/VIAL IVP SCH ×2 (09:19→20:01)
[2019-01-08] MEDS ORDERED: MEPERIDINE HCL/PF 25 MG/0.5 ML AMPUL IVP SCH (09:30)
[2019-01-08] MEDS ORDERED: CLINIMIX E 4.25%-5% SOLUTION 2,000 ML IV SCH (10:00)
[2019-01-08] MEDS: LIDOCAINE 5% TOPICAL PATCH TP SCH (11:36)
[2019-01-08 11:48] VITALS: BP 164/91
[2019-01-08] MEDS: CEFTRIAXONE SODIUM 2 GM VIAL IVP SCH (12:41)
[2019-01-08] MEDS: HYDRALAZINE HCL 20 MG/ML VIAL IV SCH ×3 (12:42→21:31)
--- NOTE | 2019-01-08 13:25 | NUR ---
Nutrition f/u: Monitoring pt's PPN. Cl 98, BUN 4, Glu 162, TBili 1.3, AST 45, Alb 3.4, lipase 3837. Recommend continuing PPN Clinimix 4.25/5 @ 80ml/hr. BALBINA to continue monitoring. Addendum: 01/08/19 at [address] Amended: Links added.
[2019-01-08 16:00] VITALS: BP 146/81
[2019-01-08] MEDS ORDERED: MEPERIDINE HCL/PF 25 MG/0.5 ML AMPUL IVP PRN (17:30)
[2019-01-08] MEDS: DEXTROSE 5%-LACTATED RINGERS 1,000 ML IV SCH ×2 (17:45→23:54)
[2019-01-08] MEDS: MEPERIDINE HCL/PF 25 MG/0.5 ML AMPUL IVP PRN (18:32)
[2019-01-08 19:00] VITALS: BP 162/91
[2019-01-08] MEDS ORDERED: ONDANSETRON HCL 4 MG/2 ML VIAL ONE (21:20)
[2019-01-08 23:00] VITALS: BP 179/88
[2019-01-09] MEDS: MEPERIDINE HCL/PF 25 MG/0.5 ML AMPUL IVP PRN ×3 (00:31→12:56)
[2019-01-09 03:00] VITALS: BP 183/101
[2019-01-09] MEDS: HYDRALAZINE HCL 20 MG/ML VIAL IV SCH ×4 (04:04→21:15)
[2019-01-09 05:40] LABS: EOSINOPHILS % (AUTO) 1.6 % (0.0-8.0); HEMATOCRIT 39.6 % (42-54); LYMPHOCYTES % (AUTO) 11.6 % (21.0-51.0); MEAN CORPUSCULAR HEMOGLOBIN 29.8 pg (27.0-33.0); MEAN CORPUSCULAR HGB CONC 34.5 g/dL (32.0-36.0); MEAN CORPUSCULAR VOLUME 86.4 fL (79-99); MONOCYTES % (AUTO) 11.4 % (3.0-13.0); NEUTROPHILS % (AUTO) 74.4 % (40.0-77.0); PLATELET COUNT (AUTO) 366 K/uL (130-400); RED BLOOD CELL COUNT(AUTO) 4.59 MIL/uL (4.50-6.20); RED CELL DISTRIBUTION WIDTH 13.3 % (11.0-15.5); WHITE BLOOD COUNT (AUTO) 12.9 K/uL (4.8-10.8)
[2019-01-09 05:56] LABS: ALBUMIN 3.4 g/dL (3.5-5.0); BILIRUBIN,TOTAL 1.4 mg/dL (0.2-1.0); CREATININE 0.7 mg/dL (0.5-1.5); POTASSIUM 3.4 mmol/L (3.5-5.1)
[2019-01-09] MEDS: LIDOCAINE 5% TOPICAL PATCH TP SCH (09:30)
[2019-01-09] MEDS: PANTOPRAZOLE 40 MG/VIAL IVP SCH ×2 (10:10→22:25)
[2019-01-09] MEDS: DEXTROSE 5%-LACTATED RINGERS 1,000 ML IV SCH ×3 (10:11→19:05)
[2019-01-09 11:16] VITALS: BP 141/79
[2019-01-09] MEDS: CEFTRIAXONE SODIUM 2 GM VIAL IVP SCH (11:38)
[2019-01-09] MEDS ORDERED: MEROPENEM 1 GM VIAL IVP SCH (14:00)
[2019-01-09] MEDS ORDERED: M.V.I. IV [ADULT] 10 ML in CLINIMIX E 4.25%-5% SOLUTION 2,000 ML IV SCH (14:45)
[2019-01-09] MEDS ORDERED: CLINIMIX E 4.25%-5% SOLUTION 2,000 ML IV SCH (14:45)
[2019-01-09] MEDS: METRONIDAZOLE 500MG/100ML BAG 100 ML IV SCH ×2 (15:19→22:26)
[2019-01-09 16:00] VITALS: BP 156/90
[2019-01-09] MEDS: LEVOFLOXACIN 500 MG/D5W 100 ML 100 ML IV SCH (19:05)
[2019-01-09] MEDS: MORPHINE SULFATE 2 MG/ML 1ML SYG IVP PRN (19:06)
[2019-01-09 19:57] VITALS: BP 196/100
[2019-01-09] MEDS: HYDRALAZINE HCL 20 MG/ML VIAL IV PRN (22:26)
[2019-01-09 23:17] VITALS: BP 162/87
[2019-01-10] MEDS: MORPHINE SULFATE 2 MG/ML 1ML SYG IVP PRN ×4 (01:19→21:38)
[2019-01-10 04:02] VITALS: BP 161/93
[2019-01-10 05:38] LABS: BASOPHILS % (AUTO) 0.7 % (0.0-5.0); EOSINOPHILS % (AUTO) 2.1 % (0.0-8.0); HEMATOCRIT 37.3 % (42-54); LYMPHOCYTES % (AUTO) 13.5 % (21.0-51.0); MEAN CORPUSCULAR HEMOGLOBIN 30.1 pg (27.0-33.0); MEAN CORPUSCULAR HGB CONC 34.7 g/dL (32.0-36.0); MEAN CORPUSCULAR VOLUME 86.7 fL (79-99); MONOCYTES % (AUTO) 10.1 % (3.0-13.0); NEUTROPHILS % (AUTO) 73.6 % (40.0-77.0); PLATELET COUNT (AUTO) 312 K/uL (130-400); RED CELL DISTRIBUTION WIDTH 13.2 % (11.0-15.5); WHITE BLOOD COUNT (AUTO) 11.2 K/uL (4.8-10.8)
[2019-01-10 06:02] LABS: ALBUMIN 3.2 g/dL (3.5-5.0); BILIRUBIN,TOTAL 1.4 mg/dL (0.2-1.0); CREATININE 0.7 mg/dL (0.5-1.5); POTASSIUM 3.7 mmol/L (3.5-5.1); TOTAL PROTEIN, SERUM 7.5 g/dL (6.0-8.3)
[2019-01-10] MEDS: DEXTROSE 5%-LACTATED RINGERS 1,000 ML IV SCH ×4 (06:53→21:34)
[2019-01-10 07:00] VITALS: BP 172/93
--- NOTE | 2019-01-10 07:20 | NUR ---
Patient lying in bed, reports severe pain to upper mid abdomen, requesting pain medication. Arabella Irby RN retrieving pain medication to administer. Declines repositioning. Bed low, locked, call pop within reach. Girlfriend at bedside. Addendum: 01/10/19 at 1250 by BRADY CALIX RN RN Amended: Links added.
[2019-01-10] MEDS: METRONIDAZOLE 500MG/100ML BAG 100 ML IV SCH ×3 (07:23→21:34)
[2019-01-10] MEDS: HYDRALAZINE HCL 20 MG/ML VIAL IV SCH ×4 (07:24→21:35)
[2019-01-10] MEDS: PANTOPRAZOLE 40 MG/VIAL IVP SCH ×2 (09:05→21:33)
[2019-01-10 11:00] VITALS: BP 185/97
[2019-01-10] MEDS ORDERED: MORPHINE SULFATE 2 MG/ML 1ML SYG IVP SCH (11:45)
--- NOTE | 2019-01-10 12:44 | NUR ---
Patient lying in bed, girlfriend at bedside, reports severe pain to abdomen and requesting pain medication. Morphine to be administered by james Bell RN.
--- NOTE | 2019-01-10 15:39 | NUR ---
RD FOLLOW UP NOTE Upon visit, Pt reports still having severe pain with consumption of Clear Liquids. Pt remains with elevated Lipase levels (2182), although declining/improving. Recommend Continue PPN (80mls/hr, 82gm pro/693kcal) at this time. PPN not meeting all Pt nutrition needs (61-76gm [id number]). RD to continue to monitor for diet advancement with improved tolerance. Please notify RD as additional nutrition concerns arise. Thank you. Addendum: 01/10/19 at [address] RD Amended: Links added.
[2019-01-10 16:00] VITALS: BP 163/96
[2019-01-10] MEDS: LEVOFLOXACIN 500 MG/D5W 100 ML 100 ML IV SCH (17:56)
[2019-01-10 20:00] VITALS: BP 171/98
[2019-01-10] MEDS ORDERED: CEPH500T PO (23:19)
[2019-01-10] MEDS ORDERED: DICY10CA13 PO (23:19)
[2019-01-11] VITALS: BP 153/83
[2019-01-11] MEDS: ONDANSETRON HCL 4 MG/2 ML VIAL IVP PRN (00:06)
[2019-01-11] MEDS: MORPHINE SULFATE 2 MG/ML 1ML SYG IVP PRN ×6 (01:18→22:16)
[2019-01-11] MEDS: HYDRALAZINE HCL 20 MG/ML VIAL IV SCH ×4 (02:57→22:18)
[2019-01-11 04:00] VITALS: BP 163/93
[2019-01-11] MEDS: DEXTROSE 5%-LACTATED RINGERS 1,000 ML IV SCH ×2 (05:03→23:25)
[2019-01-11] MEDS: METRONIDAZOLE 500MG/100ML BAG 100 ML IV SCH ×3 (05:06→22:16)
[2019-01-11 05:24] LABS: BASOPHILS % (AUTO) 0.4 % (0.0-5.0); EOSINOPHILS % (AUTO) 2.3 % (0.0-8.0); HEMATOCRIT 38.4 % (42-54); LYMPHOCYTES % (AUTO) 9.8 % (21.0-51.0); MEAN CORPUSCULAR HEMOGLOBIN 29.7 pg (27.0-33.0); MEAN CORPUSCULAR VOLUME 87.3 fL (79-99); MONOCYTES % (AUTO) 9.4 % (3.0-13.0); NEUTROPHILS % (AUTO) 78.1 % (40.0-77.0); PLATELET COUNT (AUTO) 294 K/uL (130-400); RED CELL DISTRIBUTION WIDTH 13.2 % (11.0-15.5); WHITE BLOOD COUNT (AUTO) 12.5 K/uL (4.8-10.8)
[2019-01-11 05:38] LABS: ALBUMIN 3.1 g/dL (3.5-5.0); BILIRUBIN,TOTAL 1.5 mg/dL (0.2-1.0); CREATININE 0.6 mg/dL (0.5-1.5); POTASSIUM 3.5 mmol/L (3.5-5.1); TOTAL PROTEIN, SERUM 7.3 g/dL (6.0-8.3)
[2019-01-11 07:00] VITALS: BP 161/98
[2019-01-11] MEDS: PANTOPRAZOLE 40 MG/VIAL IVP SCH ×2 (09:32→22:15)
[2019-01-11] MEDS: ENOXAPARIN SODIUM 40 MG/0.4 ML SYRINGE SQ SCH (09:33)
[2019-01-11] MEDS ORDERED: M.V.I. IV [ADULT] 10 ML in CLINIMIX E 4.25%-5% SOLUTION 2,000 ML IV SCH (10:00)
[2019-01-11 11:00] VITALS: BP 154/91
[2019-01-11 16:00] VITALS: BP 116/75
[2019-01-11] MEDS: LEVOFLOXACIN 500 MG/D5W 100 ML 100 ML IV SCH (18:04)
[2019-01-11 20:17] VITALS: BP 147/89
[2019-01-12 00:11] VITALS: BP 149/88
[2019-01-12] MEDS: MORPHINE SULFATE 2 MG/ML 1ML SYG IVP PRN ×3 (02:31→10:43)
[2019-01-12] MEDS: HYDRALAZINE HCL 20 MG/ML VIAL IV SCH ×3 (02:33→15:15)
[2019-01-12 04:06] VITALS: BP 151/77
[2019-01-12 04:57] LABS: BASOPHILS % (AUTO) 0.9 % (0.0-5.0); EOSINOPHILS % (AUTO) 3.1 % (0.0-8.0); HEMATOCRIT 38.3 % (42-54); MEAN CORPUSCULAR HEMOGLOBIN 29.3 pg (27.0-33.0); MEAN CORPUSCULAR HGB CONC 33.9 g/dL (32.0-36.0); MEAN CORPUSCULAR VOLUME 86.6 fL (79-99); MONOCYTES % (AUTO) 9.5 % (3.0-13.0); NEUTROPHILS % (AUTO) 72.5 % (40.0-77.0); NUCLEATED RED BLOOD CELLS 0.1 % (0.0-0.19); PLATELET COUNT (AUTO) 288 K/uL (130-400); RED BLOOD CELL COUNT(AUTO) 4.43 MIL/uL (4.50-6.20); WHITE BLOOD COUNT (AUTO) 11.5 K/uL (4.8-10.8)
[2019-01-12] MEDS: ONDANSETRON HCL 4 MG/2 ML VIAL IVP PRN ×2 (05:13→17:50)
[2019-01-12] MEDS: METRONIDAZOLE 500MG/100ML BAG 100 ML IV SCH ×2 (05:14→14:33)
[2019-01-12 05:15] LABS: ALBUMIN 3.1 g/dL (3.5-5.0); BILIRUBIN,TOTAL 1.6 mg/dL (0.2-1.0); CREATININE 0.7 mg/dL (0.5-1.5); MAGNESIUM 2.6 mg/dL (1.80-2.40); POTASSIUM 3.4 mmol/L (3.5-5.1); TOTAL PROTEIN, SERUM 7.3 g/dL (6.0-8.3)
[2019-01-12] MEDS: POTASSIUM CHLORIDE 20MEQ/100ML 100 ML IV PRN ×2 (06:49→10:54)
[2019-01-12] MEDS: LIDOCAINE HCL-MPF 1% 2ML VIAL IV PRN ×3 (06:51→10:54)
[2019-01-12 08:00] VITALS: BP 166/91
[2019-01-12] MEDS: PANTOPRAZOLE 40 MG/VIAL IVP SCH ×2 (09:11→20:19)
[2019-01-12] MEDS: ENOXAPARIN SODIUM 40 MG/0.4 ML SYRINGE SQ SCH (09:13)
[2019-01-12] MEDS ORDERED: HYDROMORPHONE HCL 2 MG/ML VIAL IVP PRN (11:30)
[2019-01-12] MEDS ORDERED: HYDROMORPHONE 1 MG/1 ML AMP IVP PRN (11:30)
[2019-01-12 12:00] VITALS: BP 145/92
--- NOTE | 2019-01-12 13:59 | NUR ---
BALBINA FOLLOW UP NOTE Upon visit Pt reports continues with pain on Clear Liquid Diet. Pt remains with TPN: Clinimix 15 @80mls/hr. Recommend to continue TPN at this time. Pt with acute Pancreatitis. Lipase levels continue to decline (1889). Pt LBM 01/11/19. Pt monitored labs: Na 132, K 3.4, Cl 97, Glu 149, Mg 2.60, T. Bili 1.6, Alb 3.1, Lipase 1890. RD to continue to monitor. Please notify as additional nutrition concerns arise. Thank you. Addendum: 01/12/19 at [address] RD Amended: Links added.
[2019-01-12] MEDS ORDERED: HYDROMORPHONE HCL 0.5 MG/0.5 ML ML IVP PRN ×2 (15:00→16:00)
--- NOTE | 2019-01-12 15:36 | NUR ---
RD UPDATE MD orders for tube feeding received. Pt with mild pancreatitis as per MD. Tube feeding: Vital AF 1.2 @55mls/hr. Initiate 15mls/hr for first 5hrs, increase by 5 Q5hrs as tolerated. Concern as Pt not tolerating Clear Liquids in addition to fat content of elemental formula (54gm/L) and Pt risk of Pancreatitis and elevated Lipase (1890). Pt with PPN x6 days, PPN discontinued. RD recommendations for TPN: 85mls/hr to provide 102gm Protein, [address] to continue to monitor. Please Notify RD as additional nutrition concerns arise. Thank you.
[2019-01-12] MEDS ORDERED: LIDOCAINE HCL 2% VISCOUS 15 ML UDCUP ONE (15:40)
[2019-01-12] MEDS: HYDROMORPHONE 1 MG/1 ML AMP IVP PRN (17:50)
[2019-01-12] MEDS: NS-20 MEQ KCL 1000ML 1,000 ML IV SCH (17:51)
[2019-01-12] MEDS: METOPROLOL TARTRATE 1 MG/ML 5ML VIAL IV SCH ×2 (17:51→21:47)
[2019-01-12 20:09] VITALS: BP 188/104
[2019-01-12] MEDS: HYDRALAZINE HCL 20 MG/ML VIAL IV PRN ×2 (20:21→20:23)
[2019-01-12] MEDS: HYDROMORPHONE HCL 0.5 MG/0.5 ML ML IVP PRN (21:49)
[2019-01-13 01:10] VITALS: BP 158/84
[2019-01-13] MEDS: HYDROMORPHONE 1 MG/1 ML AMP IVP PRN ×3 (01:44→19:05)
[2019-01-13] MEDS: HYDROMORPHONE HCL 0.5 MG/0.5 ML ML IVP PRN ×4 (04:14→23:15)
[2019-01-13] MEDS: METOPROLOL TARTRATE 1 MG/ML 5ML VIAL IV SCH ×5 (04:14→22:14)
[2019-01-13] MEDS: NS-20 MEQ KCL 1000ML 1,000 ML IV SCH ×2 (04:14→18:50)
[2019-01-13 04:42] VITALS: BP 156/90
[2019-01-13 04:54] LABS: HEMATOCRIT 39.5 % (42-54); MEAN CORPUSCULAR HGB CONC 34.7 g/dL (32.0-36.0); MEAN CORPUSCULAR VOLUME 86.5 fL (79-99); PLATELET COUNT (AUTO) 284 K/uL (130-400); RED BLOOD CELL COUNT(AUTO) 4.57 MIL/uL (4.50-6.20); RED CELL DISTRIBUTION WIDTH 13.6 % (11.0-15.5); WHITE BLOOD COUNT (AUTO) 12.1 K/uL (4.8-10.8)
[2019-01-13 05:12] LABS: ALBUMIN 3.4 g/dL (3.5-5.0); BILIRUBIN,TOTAL 1.8 mg/dL (0.2-1.0); CREATININE 0.7 mg/dL (0.5-1.5); POTASSIUM 3.8 mmol/L (3.5-5.1); TOTAL PROTEIN, SERUM 7.5 g/dL (6.0-8.3)
[2019-01-13 08:09] VITALS: BP 161/103
[2019-01-13] MEDS: PANTOPRAZOLE 40 MG/VIAL IVP SCH ×2 (08:17→20:59)
[2019-01-13] MEDS: HYDRALAZINE HCL 20 MG/ML VIAL IV PRN ×2 (08:18→15:34)
[2019-01-13] MEDS ORDERED: DIATR MEGLU/DIATRIZOATE SODIUM 30 ML BOTTLE ONE (09:55)
--- NOTE | 2019-01-13 10:20 | NUR ---
DUBHOFF PLACEMENT DUBHOFF PLACEMENT DONE BY DR. COLÓN. PLACEMENT CONFIRMED. REPORT CALLED TO No ARIAS RN. PT TRANSFERRED BACK TO FLOOR.
[2019-01-13 11:44] VITALS: BP 184/112
[2019-01-13] MEDS: ENOXAPARIN SODIUM 40 MG/0.4 ML SYRINGE SQ SCH (12:05)
[2019-01-13 16:10] VITALS: BP 178/116
[2019-01-13 19:00] VITALS: BP 164/93
[2019-01-13] MEDS: ONDANSETRON HCL 4 MG/2 ML VIAL IVP PRN (19:05)
[2019-01-14 00:39] VITALS: BP 157/93
[2019-01-14] MEDS: HYDROMORPHONE HCL 0.5 MG/0.5 ML ML IVP PRN ×3 (03:39→23:43)
[2019-01-14] MEDS: METOPROLOL TARTRATE 1 MG/ML 5ML VIAL IV SCH ×3 (03:40→20:58)
[2019-01-14 04:00] VITALS: BP 167/91
[2019-01-14 05:51] LABS: BASOPHILS % (AUTO) 0.6 % (0.0-5.0); EOSINOPHILS % (AUTO) 2.2 % (0.0-8.0); HEMATOCRIT 39.8 % (42-54); LYMPHOCYTES % (AUTO) 9.1 % (21.0-51.0); MEAN CORPUSCULAR HEMOGLOBIN 29.3 pg (27.0-33.0); MEAN CORPUSCULAR HGB CONC 33.8 g/dL (32.0-36.0); MEAN CORPUSCULAR VOLUME 86.7 fL (79-99); MONOCYTES % (AUTO) 7.4 % (3.0-13.0); NEUTROPHILS % (AUTO) 80.7 % (40.0-77.0); PLATELET COUNT (AUTO) 292 K/uL (130-400); RED BLOOD CELL COUNT(AUTO) 4.59 MIL/uL (4.50-6.20); RED CELL DISTRIBUTION WIDTH 13.5 % (11.0-15.5); WHITE BLOOD COUNT (AUTO) 14.3 K/uL (4.8-10.8)
[2019-01-14 06:02] LABS: ALBUMIN 3.4 g/dL (3.5-5.0); BILIRUBIN,TOTAL 2.5 mg/dL (0.2-1.0); CREATININE 0.8 mg/dL (0.5-1.5); CRP QUANTITATIVE 29.6 mg/L (0.00-9.0); PHOSPHORUS 3.3 mg/dL (2.5-4.9); TOTAL PROTEIN, SERUM 7.7 g/dL (6.0-8.3)
[2019-01-14 06:54] LABS: ERYTHROCYTE SEDIMENTATION RATE 42 MM/HR (0-20)
--- NOTE | 2019-01-14 07:00 | NUR ---
VITAL 1.2 FEEDING WAS STARTED LAST NOC AT 15CC/HR AND HAS BEEN INCREASED BY 5CC Q 5HRS TIL GOAL OF 55CCHR. PATIENT TOLERATING WELL AND WILL CONTINUE TO MONITOR FOR TOLERANCE.
[2019-01-14 08:00] VITALS: BP 175/100
[2019-01-14] MEDS: PANTOPRAZOLE 40 MG/VIAL IVP SCH ×2 (08:26→20:58)
[2019-01-14] MEDS: NS-20 MEQ KCL 1000ML 1,000 ML IV SCH ×2 (08:26→23:44)
[2019-01-14] MEDS: ENOXAPARIN SODIUM 40 MG/0.4 ML SYRINGE SQ SCH (08:27)
[2019-01-14] MEDS: HYDROMORPHONE 1 MG/1 ML AMP IVP PRN ×3 (08:39→20:56)
[2019-01-14 12:00] VITALS: BP 184/102
--- NOTE | 2019-01-14 13:49 | NUR ---
RD FOLLOW UP Pt currently with Tube Feeding via Dobhoff, Vital 1.2 @15mls/hr. Pt NPO, Pending post pyloric feeding tube placement. Pt remains with abdominal pain, increased Lipase levels (3181) as per EMR. Pt LBM 01/09/19; Recommend Stool softener/laxative when medically feasible, secondary to constipation. RD to continue to monitor. Please notify RD as nutritional concerns arise. Thank you. Addendum: 01/14/19 at [address] RD Amended: Links added.
[2019-01-14 16:00] VITALS: BP 178/98
--- NOTE | 2019-01-14 19:00 | NUR ---
FEEDING INCREASED BY 5 CC TO 40CC/HR. PT TOLERATING WELL. HOB ELEVATED TO 30 DEGREES. WILL CONTINUE TO INCREASE BY 5 CC EVERY 5 HOURS UNTIL GOAL OF 55 CC REACHED.
[2019-01-14 20:00] VITALS: BP 182/99
[2019-01-14] MEDS: HYDRALAZINE HCL 20 MG/ML VIAL IV PRN (21:00)
[2019-01-15 00:20] VITALS: BP 154/83
[2019-01-15] MEDS: METOPROLOL TARTRATE 1 MG/ML 5ML VIAL IV SCH ×4 (03:33→21:02)
[2019-01-15] MEDS: HYDROMORPHONE 1 MG/1 ML AMP IVP PRN ×5 (03:33→22:04)
[2019-01-15 04:39] LABS: HEMATOCRIT 37.2 % (42-54); MEAN CORPUSCULAR HEMOGLOBIN 29.9 pg (27.0-33.0); MEAN CORPUSCULAR HGB CONC 34.3 g/dL (32.0-36.0); MEAN CORPUSCULAR VOLUME 87.2 fL (79-99); PLATELET COUNT (AUTO) 224 K/uL (130-400); RED BLOOD CELL COUNT(AUTO) 4.27 MIL/uL (4.50-6.20); RED CELL DISTRIBUTION WIDTH 13.3 % (11.0-15.5); WHITE BLOOD COUNT (AUTO) 10.2 K/uL (4.8-10.8)
[2019-01-15 04:40] VITALS: BP 171/95
[2019-01-15 04:53] LABS: CREATININE 0.7 mg/dL (0.5-1.5); POTASSIUM 3.8 mmol/L (3.5-5.1)
--- NOTE | 2019-01-15 05:12 | NUR ---
FEEDING INCREASED BY 5 CC TO 45 CC. PATIENT TOLERATING WELL. NO S/S OF DISTRESS NOTED. HOB ELEVATED TO 30 DEGREES. WILL CONTINUE TO MONITOR.
[2019-01-15] MEDS: HYDROMORPHONE HCL 0.5 MG/0.5 ML ML IVP PRN (06:12)
[2019-01-15 08:00] VITALS: BP 179/100
[2019-01-15] MEDS: PANTOPRAZOLE 40 MG/VIAL IVP SCH ×2 (09:38→21:01)
[2019-01-15] MEDS: ENOXAPARIN SODIUM 40 MG/0.4 ML SYRINGE SQ SCH (09:52)
--- NOTE | 2019-01-15 10:45 | NUR ---
FEEDING NOW INCREASED TO 45ML/HR. BEEN TOLERATING INCREASES WELL.
[2019-01-15 12:00] VITALS: BP 164/99
[2019-01-15] MEDS: NS-20 MEQ KCL 1000ML 1,000 ML IV SCH (13:48)
--- NOTE | 2019-01-15 15:00 | NUR ---
FEEDING NOW AT 55ML/HR WHICH IS GOAL.
[2019-01-15 16:00] VITALS: BP 189/102
--- NOTE | 2019-01-15 18:00 | NUR ---
SHIFT NOTE PAIN HAS BEEN A [address] Ryder MADE ROUNDS A LITTLE EARLIER AND WILL INCREASE TO 1MG Q 4 HRS.PRN
[2019-01-15 20:00] VITALS: BP 189/93
[2019-01-16] VITALS (7 sets, daily range): BP systolic 174–188; BP diastolic 91–108
[2019-01-16] MEDS: HYDROMORPHONE 1 MG/1 ML AMP IVP PRN ×7 (02:02→23:51)
[2019-01-16] MEDS: NS-20 MEQ KCL 1000ML 1,000 ML IV SCH ×2 (03:26→17:21)
[2019-01-16] MEDS: METOPROLOL TARTRATE 1 MG/ML 5ML VIAL IV SCH ×4 (03:33→20:31)
[2019-01-16 05:36] LABS: BASOPHILS % (AUTO) 0.8 % (0.0-5.0); HEMATOCRIT 37.6 % (42-54); LYMPHOCYTES % (AUTO) 10.7 % (21.0-51.0); MEAN CORPUSCULAR HEMOGLOBIN 30.2 pg (27.0-33.0); MEAN CORPUSCULAR HGB CONC 34.8 g/dL (32.0-36.0); MEAN CORPUSCULAR VOLUME 86.9 fL (79-99); MONOCYTES % (AUTO) 7.8 % (3.0-13.0); NEUTROPHILS % (AUTO) 76.7 % (40.0-77.0); PLATELET COUNT (AUTO) 221 K/uL (130-400); RED BLOOD CELL COUNT(AUTO) 4.33 MIL/uL (4.50-6.20); RED CELL DISTRIBUTION WIDTH 13.3 % (11.0-15.5); WHITE BLOOD COUNT (AUTO) 9.2 K/uL (4.8-10.8)
[2019-01-16 05:48] LABS: CREATININE 0.7 mg/dL (0.5-1.5); POTASSIUM 3.5 mmol/L (3.5-5.1)
--- NOTE | 2019-01-16 08:00 | NUR ---
ASSESSMENT: TOMER SUNSHINE REMAINS IN PLACE VIA RT. NARE WITH CONT. FEEDINGS AT 55ML/HR. C/O OF PAIN ABD. AREA, WAS MEDICATED 2.5 HRS.AGO
[2019-01-16] MEDS: PANTOPRAZOLE 40 MG/VIAL IVP SCH ×2 (09:00→20:30)
[2019-01-16] MEDS: ENOXAPARIN SODIUM 40 MG/0.4 ML SYRINGE SQ SCH (09:01)
--- NOTE | 2019-01-16 09:30 | NUR ---
WALKING IN HALLWAY WITH NURSE STANDING BY.
[2019-01-16] MEDS: POTASSIUM CHLORIDE 10% ELIXIR 20 MEQ/15 ML UDCUP PO PRN ×2 (15:21→17:22)
--- NOTE | 2019-01-16 16:19 | NUR ---
TAKING A SHOWER NOW. NO CHANGE FAR PAIN LEVELS.
[2019-01-16] MEDS: HYDRALAZINE HCL 20 MG/ML VIAL IV PRN (23:51)
[2019-01-17] MEDS: HYDROMORPHONE 1 MG/1 ML AMP IVP PRN ×7 (03:44→21:31)
[2019-01-17] MEDS: METOPROLOL TARTRATE 1 MG/ML 5ML VIAL IV SCH ×4 (03:52→21:18)
[2019-01-17 04:00] VITALS: BP 143/89
[2019-01-17 04:36] LABS: BASOPHILS % (AUTO) 0.6 % (0.0-5.0); EOSINOPHILS % (AUTO) 3.2 % (0.0-8.0); HEMATOCRIT 37.5 % (42-54); LYMPHOCYTES % (AUTO) 8.5 % (21.0-51.0); MEAN CORPUSCULAR HEMOGLOBIN 30.1 pg (27.0-33.0); MEAN CORPUSCULAR HGB CONC 34.3 g/dL (32.0-36.0); MEAN CORPUSCULAR VOLUME 87.9 fL (79-99); MONOCYTES % (AUTO) 8.9 % (3.0-13.0); NEUTROPHILS % (AUTO) 78.8 % (40.0-77.0); PLATELET COUNT (AUTO) 195 K/uL (130-400); RED BLOOD CELL COUNT(AUTO) 4.26 MIL/uL (4.50-6.20); RED CELL DISTRIBUTION WIDTH 13.8 % (11.0-15.5); WHITE BLOOD COUNT (AUTO) 9.1 K/uL (4.8-10.8)
[2019-01-17 04:54] LABS: CREATININE 0.6 mg/dL (0.5-1.5); POTASSIUM 3.8 mmol/L (3.5-5.1)
[2019-01-17] MEDS: NS-20 MEQ KCL 1000ML 1,000 ML IV SCH ×3 (06:33→21:17)
--- NOTE | 2019-01-17 07:30 | NUR ---
ROUNDS PATIENT IS C/O OF ABDOMINAL PAIN , RECEIVING VITAL 1.2 AT 55ML/HR VIA DOBHOBB. DENIES FEELING NAUSEA, DENIES VOMITING. PATIENT HAS A WORKING IV TO LAC INFUSING NS + 20KCL AT 75MLHR. PATIENT STATED THAT HE HAS NOT HAD A BM SINCE 01/09/19.
[2019-01-17 08:00] VITALS: BP 141/84
[2019-01-17] MEDS: PANTOPRAZOLE 40 MG/VIAL IVP SCH ×2 (09:54→21:18)
[2019-01-17] MEDS: ENOXAPARIN SODIUM 40 MG/0.4 ML SYRINGE SQ SCH (09:55)
[2019-01-17 12:00] VITALS: BP 153/89
--- NOTE | 2019-01-17 12:00 | NUR ---
GI CONSULT SPOKE TO DR CHRISTINA OFFICE STAFF. PATIENT HAS BEEN SEEN BY DR CHRISTINA ON THIS ADMISSION. DR CHRISTINA WILL BE COMING IN TO SEE PATIENT ACCORDING TO HER STAFF.
--- NOTE | 2019-01-17 13:40 | NUR ---
CONSTIPATION PATIENT STATES HE HAS NOT HAD A BM SINCE 01/09/19. INFORMED NICOLASA HENRIQUEZ, ORDERED DULCOLAX 10MG SUPPOSITORY BID PRN FOR CONSTIPATION. PATIENT HAS REFUSED SUPPOSITORY AT THIS TIME. REFUSES TO AMBULATE WELL.
--- NOTE | 2019-01-17 15:32 | NUR ---
RD FOLLOW UP PT CONTINUES WITH PAIN WITH TUBE FEEDINGS; RECOMMEND TO DISCONTINUE TUBE FEEDINGS AT THIS TIME. PT WITH ELEVATED LIPASE LEVELS, INCREASING TREND. RECOMMEND TO RE-CHECK TUBE PLACEMENT AND/OR CONSIDER ALTERED MEANS NUTRITION, RECOMMEND TO CONSIDER PPN/TPN SECONDARY TO INTOLERANCE TO ELEMENTAL TUBE FEEDINGS. NOTED PENDING GASTROENTEROLOGY EVALUATION. ALSO NOTED DULCOLAX TX PERIRECTALLY SECONDARY TO CONSTIPATION. LBM 01/09/19. MONITORED LAB VALUES: LIPASE 4273, NA 133, GLU 149. RD TO CONTINUE TO MONITOR. PLEASE NOTIFY RD ADDITIONAL NUTRITION CONCERNS ARISE. THANK YOU. Addendum: 01/17/19 at [address] RD Amended: Links added.
[2019-01-17 16:00] VITALS: BP 144/91
[2019-01-17] MEDS: BISACODYL 10 MG SUPP.RECT RC PRN (17:38)
[2019-01-17 18:57] LABS: BASOPHILS % (AUTO) 0.6 % (0.0-5.0); EOSINOPHILS % (AUTO) 3.7 % (0.0-8.0); HEMATOCRIT 38.2 % (42-54); LYMPHOCYTES % (AUTO) 9.4 % (21.0-51.0); MEAN CORPUSCULAR HEMOGLOBIN 30.1 pg (27.0-33.0); MEAN CORPUSCULAR HGB CONC 34.1 g/dL (32.0-36.0); MEAN CORPUSCULAR VOLUME 88.1 fL (79-99); MONOCYTES % (AUTO) 7.7 % (3.0-13.0); NEUTROPHILS % (AUTO) 78.6 % (40.0-77.0); NUCLEATED RED BLOOD CELLS 0.1 % (0.0-0.19); PLATELET COUNT (AUTO) 174 K/uL (130-400); RED BLOOD CELL COUNT(AUTO) 4.34 MIL/uL (4.50-6.20); RED CELL DISTRIBUTION WIDTH 13.6 % (11.0-15.5); WHITE BLOOD COUNT (AUTO) 8.2 K/uL (4.8-10.8)
[2019-01-17 19:15] LABS: BILIRUBIN,TOTAL 3.3 mg/dL (0.2-1.0); CREATININE 0.5 mg/dL (0.5-1.5); POTASSIUM 3.9 mmol/L (3.5-5.1); TOTAL PROTEIN, SERUM 7.2 g/dL (6.0-8.3)
[2019-01-17 19:59] VITALS: BP 168/86
[2019-01-17 23:56] VITALS: BP 156/95
[2019-01-18] VITALS (16 sets, daily range): BP systolic 128–185; BP diastolic 62–106
[2019-01-18] MEDS: HYDROMORPHONE 1 MG/1 ML AMP IVP PRN ×7 (00:36→22:55)
[2019-01-18] MEDS: METOPROLOL TARTRATE 1 MG/ML 5ML VIAL IV SCH ×4 (03:59→20:32)
[2019-01-18 04:45] LABS: BASOPHILS % (AUTO) 0.6 % (0.0-5.0); EOSINOPHILS % (AUTO) 4.3 % (0.0-8.0); HEMATOCRIT 36.6 % (42-54); LYMPHOCYTES % (AUTO) 9.7 % (21.0-51.0); MEAN CORPUSCULAR HEMOGLOBIN 29.9 pg (27.0-33.0); MEAN CORPUSCULAR HGB CONC 34.4 g/dL (32.0-36.0); MONOCYTES % (AUTO) 8.2 % (3.0-13.0); NEUTROPHILS % (AUTO) 77.2 % (40.0-77.0); PLATELET COUNT (AUTO) 193 K/uL (130-400); RED BLOOD CELL COUNT(AUTO) 4.21 MIL/uL (4.50-6.20); RED CELL DISTRIBUTION WIDTH 13.5 % (11.0-15.5)
[2019-01-18 05:09] LABS: CREATININE 0.5 mg/dL (0.5-1.5)
[2019-01-18] MEDS: ENOXAPARIN SODIUM 40 MG/0.4 ML SYRINGE SQ SCH ×2 (07:54→09:00)
--- NOTE | 2019-01-18 08:46 | NUR ---
dilaudid dose given now, not yet due but pt. in a lot of pain and dose approved to be given now by Lei cabrera.
[2019-01-18] MEDS: PANTOPRAZOLE 40 MG/VIAL IVP SCH ×2 (10:09→20:33)
[2019-01-18] MEDS: MORPHINE SULFATE 4 MG/1ML SYG IV PRN ×2 (10:47→17:05)
[2019-01-18] MEDS: NS-20 MEQ KCL 1000ML 1,000 ML IV SCH (10:50)
[2019-01-18] MEDS ORDERED: PROPOFOL 10 MG/ML 20ML VIAL IV ONE (11:54)
--- NOTE | 2019-01-18 12:15 | NUR ---
FEEDING TUBE VIA RT LETICIA DONALDSON. Addendum: 01/18/19 at 1235 by RADHA CHAUHAN RN RN Amended: Links added.
--- NOTE | 2019-01-18 12:45 | NUR ---
PT COMPLAINING OF FEEDING TUBE CURLED UP IN HIS MOUTH. PT WANTED IT OUT. PT DID HAVE TUBE CURLED UP IN HIS MOUTH, BOTHERING HIM. FEEDING TUBE PULLED OUT. DR. FINK NOTIFIED. NO NEW ORDERS GIVEN. EARL MARTINEZ NOTIFIED OF FEEDING TUBE REMOVED TO, AND DR. FINK WAS NOTIFIED. EARL MARTINEZ SAID SHE WILL ASK DR. HERNANDEZ IF ITS STILL NEEDED. Addendum: 01/18/19 at 1319 by RADHA CHAUHAN, EARL ELLIOTT Amended: Links added.
[2019-01-18] MEDS ORDERED: GADODIAMIDE 10 MMOL/20 ML VIAL IV ONE (13:01)
--- NOTE | 2019-01-18 13:57 | NUR ---
TO RAD. DEPT. NOW FOR [facility].
[2019-01-18] MEDS ORDERED: PROPOFOL 1000 MG/100 ML 100 ML IV ONE (14:16)
[2019-01-18 17:35] LABS: BASOPHILS % (AUTO) 0.5 % (0.0-5.0); EOSINOPHILS % (AUTO) 3.3 % (0.0-8.0); LYMPHOCYTES % (AUTO) 8.9 % (21.0-51.0); MEAN CORPUSCULAR HEMOGLOBIN 30.2 pg (27.0-33.0); MEAN CORPUSCULAR HGB CONC 34.3 g/dL (32.0-36.0); MEAN CORPUSCULAR VOLUME 87.9 fL (79-99); MONOCYTES % (AUTO) 7.3 % (3.0-13.0); PLATELET COUNT (AUTO) 199 K/uL (130-400); RED BLOOD CELL COUNT(AUTO) 4.44 MIL/uL (4.50-6.20); RED CELL DISTRIBUTION WIDTH 13.7 % (11.0-15.5); WHITE BLOOD COUNT (AUTO) 9.8 K/uL (4.8-10.8)
[2019-01-18 17:43] LABS: CREATININE 0.5 mg/dL (0.5-1.5); POTASSIUM 4.2 mmol/L (3.5-5.1)
[2019-01-18 17:45] LABS: INR 1.08 (0.85-1.15); PROTHROMBIN TIME 11.3 SEC (9.6-11.6)
[2019-01-18] MEDS: HYDRALAZINE HCL 20 MG/ML VIAL IV PRN (20:32)
[2019-01-19] VITALS (16 sets, daily range): BP systolic 145–194; BP diastolic 66–108
[2019-01-19] MEDS: HYDROMORPHONE 1 MG/1 ML AMP IVP PRN ×7 (02:09→22:21)
[2019-01-19] MEDS: METOPROLOL TARTRATE 1 MG/ML 5ML VIAL IV SCH ×3 (03:30→15:52)
[2019-01-19] MEDS: HYDRALAZINE HCL 20 MG/ML VIAL IV PRN ×2 (05:00→20:54)
[2019-01-19] MEDS: NS-20 MEQ KCL 1000ML 1,000 ML IV SCH ×2 (05:01→20:53)
[2019-01-19 05:03] LABS: BASOPHILS % (AUTO) 0.6 % (0.0-5.0); EOSINOPHILS % (AUTO) 2.9 % (0.0-8.0); HEMATOCRIT 38.4 % (42-54); LYMPHOCYTES % (AUTO) 9.5 % (21.0-51.0); MEAN CORPUSCULAR HEMOGLOBIN 30.2 pg (27.0-33.0); MEAN CORPUSCULAR HGB CONC 34.4 g/dL (32.0-36.0); MEAN CORPUSCULAR VOLUME 87.8 fL (79-99); MONOCYTES % (AUTO) 7.8 % (3.0-13.0); NEUTROPHILS % (AUTO) 79.2 % (40.0-77.0); NUCLEATED RED BLOOD CELLS 0.1 % (0.0-0.19); PLATELET COUNT (AUTO) 200 K/uL (130-400); RED BLOOD CELL COUNT(AUTO) 4.38 MIL/uL (4.50-6.20); RED CELL DISTRIBUTION WIDTH 13.8 % (11.0-15.5)
[2019-01-19 05:11] LABS: INR 1.07 (0.85-1.15); PROTHROMBIN TIME 11.2 SEC (9.6-11.6)
[2019-01-19 05:27] LABS: CREATININE 0.5 mg/dL (0.5-1.5); POTASSIUM 4.1 mmol/L (3.5-5.1)
[2019-01-19] MEDS ORDERED: INDOMETHACIN 50 MG SUPP.RECT RC SCH (09:15)
[2019-01-19] MEDS: PANTOPRAZOLE 40 MG/VIAL IVP SCH ×2 (09:36→20:53)
[2019-01-19] MEDS ORDERED: IOHEXOL-350 50ML VIAL IV ONE (11:01)
[2019-01-19] MEDS ORDERED: FENTANYL CITRATE PF 50 MCG/1 ML 2ML VIAL ONE (11:04)
[2019-01-19] MEDS ORDERED: PROPOFOL 10 MG/ML 20ML VIAL IV ONE (11:05)
[2019-01-19] MEDS ORDERED: LIDOCAINE HCL 2% 20ML ONE (11:05)
[2019-01-19] MEDS ORDERED: SUCCINYLCHOLINE 200MG/10ML SYR ONE (11:05)
[2019-01-20] VITALS: BP_SYST 154; BP_SYST 166; BP_DIAS 111; BP_DIAS 97
[2019-01-20] MEDS: HYDROMORPHONE 1 MG/1 ML AMP IVP PRN ×7 (01:17→21:42)
[2019-01-20] MEDS: METOPROLOL TARTRATE 1 MG/ML 5ML VIAL IV SCH ×5 (01:17→21:41)
[2019-01-20] MEDS: MORPHINE SULFATE 4 MG/1ML SYG IV PRN (03:26)
[2019-01-20 04:00] VITALS: BP 197/98
[2019-01-20 04:52] LABS: BASOPHILS % (AUTO) 0.6 % (0.0-5.0); EOSINOPHILS % (AUTO) 3.5 % (0.0-8.0); HEMATOCRIT 37.7 % (42-54); LYMPHOCYTES % (AUTO) 9.4 % (21.0-51.0); MEAN CORPUSCULAR HEMOGLOBIN 30.4 pg (27.0-33.0); MEAN CORPUSCULAR HGB CONC 34.4 g/dL (32.0-36.0); MEAN CORPUSCULAR VOLUME 88.3 fL (79-99); MONOCYTES % (AUTO) 7.9 % (3.0-13.0); NEUTROPHILS % (AUTO) 78.6 % (40.0-77.0); PLATELET COUNT (AUTO) 200 K/uL (130-400); RED BLOOD CELL COUNT(AUTO) 4.27 MIL/uL (4.50-6.20); RED CELL DISTRIBUTION WIDTH 13.9 % (11.0-15.5); WHITE BLOOD COUNT (AUTO) 10.2 K/uL (4.8-10.8)
[2019-01-20 05:24] LABS: ALBUMIN 3.1 g/dL (3.5-5.0); CREATININE 0.6 mg/dL (0.5-1.5); POTASSIUM 3.9 mmol/L (3.5-5.1); TOTAL PROTEIN, SERUM 7.3 g/dL (6.0-8.3)
[2019-01-20 07:56] VITALS: BP 162/82
[2019-01-20] MEDS: PANTOPRAZOLE 40 MG/VIAL IVP SCH ×2 (08:52→21:41)
[2019-01-20] MEDS: ENOXAPARIN SODIUM 40 MG/0.4 ML SYRINGE SQ SCH (09:00)
[2019-01-20] MEDS: NS-20 MEQ KCL 1000ML 1,000 ML IV SCH ×2 (10:45→21:41)
[2019-01-20 11:29] VITALS: BP 192/105
[2019-01-20] MEDS: HYDRALAZINE HCL 20 MG/ML VIAL IV PRN (11:47)
--- NOTE | 2019-01-20 13:00 | NUR ---
DISCUSSION RE PAIN MEDICATIONS CALLY BHAT HERE, DISCUSSION WITH RN/CRN, PESTICIDE USE MEDICAL COORDINATOR RE PO PAIN MED TRANSITION, RECOMMEND CHANGEING TO PO AND WEAN OFF PRIOR TO DC. PT REPORTED REQUESTING/ REC'ING PAIN MEDS OFTNE/EACTLY WHEN DUE. MAY BE A BARRIER TO DISCHARGE. LIPASE TRENDING DOWN, STILL HIGH.
[2019-01-20 16:00] VITALS: BP 171/102
--- NOTE | 2019-01-20 17:04 | NUR ---
RD Follow up Pt pending Gastroenterology EUS as per EMR. Tube feeding discontinued. Fluctuating Lipase levels, currently 1812. Pt remains with constipation and abdominal pain. Dulcolax to be continued perirectally as per EMR. Pt LBM 01/18. Pt monitored labs: Na 134, Cl 97, Glu 109, T.Bili 3.0, AST 64, ALT 80, Alk 158, Lipase 1812. RD to continue to monitor. Please notify RD as additional nutrition concerns arise. Thank you. Addendum: 01/20/19 at [address] RD Amended: Links added.
[2019-01-20 19:00] VITALS: BP 179/109
[2019-01-21] VITALS (7 sets, daily range): BP systolic 154–190; BP diastolic 96–111
[2019-01-21] MEDS ORDERED: ALPRAZOLAM 0.25 MG TABLET PO ONE
[2019-01-21] MEDS: HYDROMORPHONE 1 MG/1 ML AMP IVP PRN (00:49)
[2019-01-21] MEDS: HYDROMORPHONE HCL 0.5 MG/0.5 ML ML IVP PRN ×2 (04:08→10:01)
[2019-01-21] MEDS: METOPROLOL TARTRATE 1 MG/ML 5ML VIAL IV SCH ×4 (04:56→21:56)
[2019-01-21] MEDS: MORPHINE SULFATE 4 MG/1ML SYG IV PRN ×2 (04:58→15:45)
[2019-01-21] MEDS: PANTOPRAZOLE 40 MG/VIAL IVP SCH ×2 (10:08→21:56)
[2019-01-21] MEDS: ENOXAPARIN SODIUM 40 MG/0.4 ML SYRINGE SQ SCH (10:14)
[2019-01-21] MEDS: NS-20 MEQ KCL 1000ML 1,000 ML IV SCH (14:49)
[2019-01-21] MEDS: ALPRAZOLAM 0.25 MG TABLET PO PRN (22:08)
[2019-01-21] MEDS: ZOLPIDEM TARTRATE 5 MG TAB PO PRN (22:08)
[2019-01-21] MEDS: ACETAMINOPHEN-CODEINE 300/30MG TAB PO PRN (22:09)
[2019-01-22] MEDS: NS-20 MEQ KCL 1000ML 1,000 ML IV SCH ×2 (03:19→17:02)
[2019-01-22 03:46] VITALS: BP 163/96
[2019-01-22] MEDS: METOPROLOL TARTRATE 1 MG/ML 5ML VIAL IV SCH ×3 (04:23→17:01)
[2019-01-22] MEDS: ALPRAZOLAM 0.25 MG TABLET PO PRN ×3 (04:23→22:01)
[2019-01-22] MEDS: ACETAMINOPHEN-CODEINE 300/30MG TAB PO PRN ×3 (04:25→22:01)
[2019-01-22 04:31] LABS: BASOPHILS % (AUTO) 0.4 % (0.0-5.0); EOSINOPHILS % (AUTO) 4.5 % (0.0-8.0); LYMPHOCYTES % (AUTO) 17.6 % (21.0-51.0); MEAN CORPUSCULAR HEMOGLOBIN 30.3 pg (27.0-33.0); MEAN CORPUSCULAR HGB CONC 34.3 g/dL (32.0-36.0); MEAN CORPUSCULAR VOLUME 88.3 fL (79-99); MONOCYTES % (AUTO) 10.1 % (3.0-13.0); NEUTROPHILS % (AUTO) 67.4 % (40.0-77.0); PLATELET COUNT (AUTO) 212 K/uL (130-400); RED CELL DISTRIBUTION WIDTH 13.8 % (11.0-15.5); WHITE BLOOD COUNT (AUTO) 9.2 K/uL (4.8-10.8)
[2019-01-22 05:02] LABS: CREATININE 0.7 mg/dL (0.5-1.5); POTASSIUM 3.4 mmol/L (3.5-5.1)
[2019-01-22 07:30] VITALS: BP 147/88
--- NOTE | 2019-01-22 08:15 | NUR ---
PATIENT UPDATE From being on the dilaudid 1 mg iv q 3 hrs prn for abdominal pain, Eloisa Mcduffie BONE PLANT SUPERVISOR talked to the pt about changing the regimen. IV med was d/c and he was switched to tylenol #3 tab q 4hrs for pain. Pt was started on it last night together with the alprazolam prn, slept better overnight, continues with the metoprolol 5 mg ivq 6hrs for the elevated bp. Patient again asked for the pain med this am and requested to be given "the 2 pills" , tylenol #3 1 tab plus 1 0.25 mg of xanax given. Pt less anxious, sleeping better, lipase this am down to 1,663.
[2019-01-22] MEDS: PANTOPRAZOLE 40 MG/VIAL IVP SCH ×2 (10:42→22:00)
[2019-01-22] MEDS: POTASSIUM CHLORIDE 10% ELIXIR 20 MEQ/15 ML UDCUP PO PRN ×2 (10:43→12:39)
[2019-01-22] MEDS: ENOXAPARIN SODIUM 40 MG/0.4 ML SYRINGE SQ SCH (10:44)
[2019-01-22] MEDS: ONDANSETRON HCL 4 MG/2 ML VIAL IVP PRN (10:51)
[2019-01-22 11:00] VITALS: BP 164/99
[2019-01-22 16:00] VITALS: BP 177/102
[2019-01-22] MEDS: MORPHINE SULFATE 4 MG/1ML SYG IV PRN (17:18)
[2019-01-22 22:00] VITALS: BP 190/119
[2019-01-22] MEDS: HYDRALAZINE HCL 20 MG/ML VIAL IV PRN (22:01)
[2019-01-22] MEDS: ZOLPIDEM TARTRATE 5 MG TAB PO PRN (22:01)
[2019-01-22 23:58] VITALS: BP 195/112
[2019-01-23] MEDS: METOPROLOL TARTRATE 1 MG/ML 5ML VIAL IV SCH ×3 (00:48→08:54)
[2019-01-23 04:06] VITALS: BP 153/107
[2019-01-23 05:05] LABS: BASOPHILS % (AUTO) 0.4 % (0.0-5.0); EOSINOPHILS % (AUTO) 2.7 % (0.0-8.0); HEMATOCRIT 37.4 % (42-54); LYMPHOCYTES % (AUTO) 10.4 % (21.0-51.0); MEAN CORPUSCULAR HGB CONC 34.3 g/dL (32.0-36.0); MEAN CORPUSCULAR VOLUME 87.4 fL (79-99); MONOCYTES % (AUTO) 8.7 % (3.0-13.0); NEUTROPHILS % (AUTO) 77.8 % (40.0-77.0); PLATELET COUNT (AUTO) 219 K/uL (130-400); RED BLOOD CELL COUNT(AUTO) 4.28 MIL/uL (4.50-6.20); WHITE BLOOD COUNT (AUTO) 10.3 K/uL (4.8-10.8)
[2019-01-23 05:29] LABS: CREATININE 0.6 mg/dL (0.5-1.5); POTASSIUM 3.7 mmol/L (3.5-5.1)
[2019-01-23] MEDS: ACETAMINOPHEN-CODEINE 300/30MG TAB PO PRN ×4 (05:56→22:23)
[2019-01-23] MEDS: NS-20 MEQ KCL 1000ML 1,000 ML IV SCH ×2 (05:57→18:30)
[2019-01-23] MEDS: ALPRAZOLAM 0.25 MG TABLET PO PRN ×3 (05:57→18:29)
[2019-01-23 07:30] VITALS: BP 148/94
--- NOTE | 2019-01-23 07:57 | NUR ---
PATIENT UPDATE Pt hysterical last night at the beginning of the shift , asking almost teary eyed for pain meds. Was made aware that he was just given the morphine 4 mg slow iv push by the prev nurse but continues to insist that his pain is the worst. Ms Reid VALUE STREAM LEADER called to see the pt, came and talk to the pt inside the room at 2014, explained what's going on and ended up discontinuing the morphine iv prn. Was given the tylenol #3, ambien and the lorazepam at almost 2200 and started screaming inside the room hysterical before 2300 saying that he needs more pain and nothing that we give works, insisting on being given the prn iv meds again. Ms. Reid called again at 2253, returned the call at 2355. When she came over for the 2nd time, pt more calm and relaxed. VALUE STREAM LEADER asked about the plan of care for this pt since he's acting more like having withdrawal symptoms from the dilaudid which he had been getting for 3 weeks. She stated that she will talk to the MD's about what we're going to do next.
[2019-01-23] MEDS: ENOXAPARIN SODIUM 40 MG/0.4 ML SYRINGE SQ SCH (08:54)
[2019-01-23] MEDS: PANTOPRAZOLE 40 MG/VIAL IVP SCH (08:55)
[2019-01-23 11:00] VITALS: BP 169/91
[2019-01-23] MEDS: ONDANSETRON HCL 4 MG/2 ML VIAL IVP PRN (12:25)
--- NOTE | 2019-01-23 12:29 | NUR ---
FULL LIQUIDS UPDATE Patient had diet advanced to full liquids. At this point he stated he felt somewhat nauseous. Covered for nausea. Overall, he states he did tolerate the full liquids.
[2019-01-23] MEDS ORDERED: LISINOPRIL 20 MG TABLET PO SCH (14:00)
--- NOTE | 2019-01-23 14:44 | NUR ---
ATTENDING's ROUNDS Dr. Calero did rounds. She was updated that patient verbalized he felt the pain medication currently on is not helping him. Dr. Hairston discussed pain management with patient. Received a one time order for morphine 2mg IV. Patient verbalized and demonstrated understanding that it is a one time dose only.
[2019-01-23] MEDS ORDERED: MORPHINE SULFATE 2 MG/ML 1ML SYG IVP ONE (14:45)
[2019-01-23 16:00] VITALS: BP 192/108
[2019-01-23] MEDS: HYDRALAZINE HCL 20 MG/ML VIAL IV PRN (18:39)
[2019-01-23 19:15] VITALS: BP 138/78
[2019-01-23] MEDS: METOPROLOL TARTRATE 50 MG TAB PO SCH (20:58)
[2019-01-23] MEDS: PANTOPRAZOLE SODIUM 40 MG TABLET.DR PO SCH (20:59)
--- NOTE | 2019-01-23 22:23 | NUR ---
PAIN Pt awake,alert,watching tv,medicated with Tylenol# 3 for c/o abdominal pain.
[2019-01-23] MEDS: ZOLPIDEM TARTRATE 5 MG TAB PO PRN (23:08)
--- NOTE | 2019-01-23 23:23 | NUR ---
MED EFFECT Pt resting quietly,states pain relief,wants Ambien now for sleep.
[2019-01-23 23:30] VITALS: BP 148/88
--- NOTE | 2019-01-24 00:23 | NUR ---
SLEEP Pt sleeping,respirations even and unlabored.
[2019-01-24] MEDS: ACETAMINOPHEN-CODEINE 300/30MG TAB PO PRN ×5 (02:12→19:49)
[2019-01-24 03:24] VITALS: BP 175/99
[2019-01-24] MEDS: ALPRAZOLAM 0.25 MG TABLET PO PRN ×2 (03:27→21:17)
[2019-01-24] MEDS: HYDRALAZINE HCL 20 MG/ML VIAL IV PRN (03:27)
[2019-01-24 04:05] VITALS: BP 150/80
[2019-01-24 05:32] LABS: BASOPHILS % (AUTO) 0.7 % (0.0-5.0); EOSINOPHILS % (AUTO) 5.1 % (0.0-8.0); HEMATOCRIT 36.4 % (42-54); LYMPHOCYTES % (AUTO) 17.5 % (21.0-51.0); MEAN CORPUSCULAR HEMOGLOBIN 30.6 pg (27.0-33.0); MEAN CORPUSCULAR HGB CONC 34.5 g/dL (32.0-36.0); MEAN CORPUSCULAR VOLUME 88.5 fL (79-99); MONOCYTES % (AUTO) 8.1 % (3.0-13.0); NEUTROPHILS % (AUTO) 68.6 % (40.0-77.0); NUCLEATED RED BLOOD CELLS 0.1 % (0.0-0.19); PLATELET COUNT (AUTO) 212 K/uL (130-400); RED BLOOD CELL COUNT(AUTO) 4.12 MIL/uL (4.50-6.20); RED CELL DISTRIBUTION WIDTH 14.4 % (11.0-15.5); WHITE BLOOD COUNT (AUTO) 8.6 K/uL (4.8-10.8)
[2019-01-24] MEDS: NS-20 MEQ KCL 1000ML 1,000 ML IV SCH ×3 (05:54→22:27)
[2019-01-24 06:09] LABS: CREATININE 0.7 mg/dL (0.5-1.5); POTASSIUM 3.8 mmol/L (3.5-5.1)
--- NOTE | 2019-01-24 07:06 | NUR ---
GI Dr ROBIN called he gave new order,report given to oncoming nurse.
[2019-01-24 07:43] LABS: BILIRUBIN,TOTAL 1.5 mg/dL (0.2-1.0); TOTAL PROTEIN, SERUM 7.1 g/dL (6.0-8.3)
[2019-01-24 08:00] VITALS: BP 149/91
[2019-01-24] MEDS: PANTOPRAZOLE SODIUM 40 MG TABLET.DR PO SCH ×2 (10:22→19:48)
[2019-01-24] MEDS: LISINOPRIL 20 MG TABLET PO SCH (10:22)
[2019-01-24] MEDS: METOPROLOL TARTRATE 50 MG TAB PO SCH ×2 (10:22→19:48)
[2019-01-24] MEDS: ENOXAPARIN SODIUM 40 MG/0.4 ML SYRINGE SQ SCH (10:23)
[2019-01-24 12:00] VITALS: BP 164/91
--- NOTE | 2019-01-24 14:29 | NUR ---
NEW CANCER DIAGNOSIS WAS SPEAKING TO WHITE WASHER PILER- STATES THAT SHE WAA TOLD THAT THE PATHOLOGY SHOWS CANCER IN THE GALL BLADDER DUCT, JERE CONSULT, DIRECTION OF CARE CHANGES
--- NOTE | 2019-01-24 15:34 | NUR ---
RD Follow Up Pt tolerating Full Liquid diet, as per RN, with no report of N/V/diarrhea. Pt continues with abdominal pain. Noted Lipase, 1666. Pending Oncology evaluation as per EMR. LBM 01/17/19. Pt monitored labs: Glu 117, T. bili 1.5, AST 45, Alk 146, Alb 3.0. RD to continue to monitor. Please notify RD as additional nutrition concerns arise. Thank you. Addendum: 01/24/19 at [address] RD Amended: Links added.
[2019-01-24 16:00] VITALS: BP 160/91
--- NOTE | 2019-01-24 18:00 | NUR ---
DR. CABA HAS BEEN CONSULTED, HAS NOT SEEN PT. YET.
--- NOTE | 2019-01-24 18:00 | NUR ---
CONTINUES WITH PAIN, DILAUDID HAS BEEN REORDERED AND HAS BEEN GIVEN A DOSE.
[2019-01-24] MEDS: HYDROMORPHONE HCL 0.5 MG/0.5 ML ML IVP PRN ×2 (18:37→23:36)
--- NOTE | 2019-01-24 19:49 | NUR ---
ASSESS PT STILL COMPLAINTS OF ABDOMINAL PAINS. SHIFT ASSESSMENT DONE, PLEASE REFER TO CHART. DUE MEDS ADMINISTERED, TYLENOL #3 GIVEN FOR PAINS. KEPT RESTED AND COMFORTABLE IN BED. CALL LIGHT WITHIN REACH. WILL RE-ASSESS PT. Addendum: 01/24/19 at 2239 by LEN CASTILLO RN RN Amended: Links added.
[2019-01-24 20:00] VITALS: BP 188/102
--- NOTE | 2019-01-24 20:45 | NUR ---
PAGED PT IS SHOUTING OF PAINS, CLAIMS OF EPIGASTRIC PAINS. EXPLAINED THAT MD WILL BE PAGED AND WILL REFER COMPLAINTS. PATRICIA SMART NP HOSPITALIST MAJOR DONOR COORDINATOR, VIA THE ANSWERING SERVICE. AWAITING CALL BACK.
--- NOTE | 2019-01-24 21:00 | NUR ---
MOTOR VEHICLE OR CARAVAN SALESPERSON STILL NO CALL BACK FROM MOTOR VEHICLE OR CARAVAN SALESPERSON. PT STILL SHOUTING OF PAINS. TRIED TO CALM PT DOWN, NOT TO BE SHOUTING. TRIED TO CALL MOTOR VEHICLE OR CARAVAN SALESPERSON'S ROOM AND THEN ER WHERE ER STAFF CLAIMS THAT MOTOR VEHICLE OR CARAVAN SALESPERSON IS ADMITTING PTS. EXPLAINED THAT MOTOR VEHICLE OR CARAVAN SALESPERSON IS NEEDED FOR ORDERS IF SHE COULD CALL BACK TO FRONT LOAD TRASH TRUCK DRIVER WHEN ABLE.
--- NOTE | 2019-01-24 21:10 | NUR ---
ORDERS CLEMENTE SMART, CALLED BACK AND REFERRED PT'S COMPLAINTS. NEW MED ORDER GIVEN, PLEASE REFER TO CPOE. WILL MEDICATE PT.
[2019-01-24] MEDS ORDERED: MORPHINE SULFATE 2 MG/ML 1ML SYG ONE (21:15)
--- NOTE | 2019-01-24 22:17 | NUR ---
RE-ASSESS PT IS MORE CALM AND DENIES ANY PAINS BUT CLAIMS WANTED TO SLEEP AND ASKED FOR SLEEPING MED. MEDICATED WITH AMBIEN PO. KEPT RESTED IN BED.
[2019-01-24] MEDS: ZOLPIDEM TARTRATE 5 MG TAB PO PRN (22:26)
--- NOTE | 2019-01-24 23:36 | NUR ---
PAIN PT COMPLAINTS OF ABDOMINAL PAINS. MEDICATED WITH DILAUDID IV. KEPT COMFORTABLE IN BED. CALL LIGHT WITHIN REACH. WILL RE-ASSESS PT.
[2019-01-25] VITALS (10 sets, daily range): BP systolic 119–190; BP diastolic 83–113
[2019-01-25] MEDS: HYDRALAZINE HCL 20 MG/ML VIAL IV PRN ×2 (00:30→05:28)
--- NOTE | 2019-01-25 00:30 | NUR ---
BP PT'S BP RE-CHECKED BY PCP = 200/118, HR=57 BPM. PT IS RESTING WELL AND CLAIMS OF PAIN HAVING SUBSIDED. MEDICATED WITH HYDRALAZINE IV. WILL MONITOR CLOSELY.
[2019-01-25] MEDS: MORPHINE SULFATE 2 MG/ML 1ML SYG IVP PRN ×4 (01:11→20:28)
--- NOTE | 2019-01-25 01:50 | NUR ---
BP BERRY, LOCAL GOVERNMENT LEGISLATOR DIESEL PLANT OPERATOR FOR HOSPITALIST, MADE AWARE OF PT'S ELEVATED BP AND CONSTANT COMPLAINTS OF PAINS. NO NEW ORDERS GIVEN. STATED TO MONITOR PT AND GIVE MEDS ORDERED.
[2019-01-25] MEDS: ACETAMINOPHEN-CODEINE 300/30MG TAB PO PRN (02:02)
--- NOTE | 2019-01-25 02:02 | NUR ---
PAIN PT CALLS AND CLAIMS OF HAVING STILL ABDOMINAL PAINS. TYLENOL #3 1 TAB PO GIVEN. ENCOURAGED TO CALM DOWN AND TRY TO RELAX. EXPLAINED TO PT THAT HE WAS ALREADY GIVEN ALL MEDS ORDERED BY . PT AGREED TO TRY TO CALM DOWN AND RELAX. WILL RE-ASSESS PT.
--- NOTE | 2019-01-25 03:34 | NUR ---
BP PCP IN TO CHECK V/S, BP ELEVATED AT 190/113, HR=83 BPM. PT ASKS FOR PAIN MEDICATION FOR HIS ABDOMEN. CALLED BERRY QUAL FIELD MANAGER PACKER AND CARRY OUT FOR HOSPITALIST, REFERRED PT'S BP AND PT'S COMPLAINTS OF PAINS. NEW MED ORDER GIVEN. WILL MEDICATE PT.
[2019-01-25] MEDS ORDERED: CLONIDINE HCL 0.2 MG TABLET PO ONE (03:37)
[2019-01-25] MEDS: HYDROMORPHONE HCL 0.5 MG/0.5 ML ML IVP PRN ×5 (03:38→21:57)
[2019-01-25] MEDS ORDERED: CLONIDINE HCL 0.2 MG TABLET PO PRN (03:45)
--- NOTE | 2019-01-25 05:20 | NUR ---
SOLAR INSTALLATION CREW SUPERVISOR CALLED SOLAR INSTALLATION CREW SUPERVISOR AND INFORMED OF PERSISTENTLY HIGH BP. RE-CHECK= 180/110, HR=88. PT WAS COMPLAINING OF ABDOMINAL PAINS AND MEDICATED WITH MORPHINE. SOLAR INSTALLATION CREW SUPERVISOR ORDERED TO GIVE HYDRALAZINE IV NOW. WILL MEDICATE PT.
[2019-01-25 05:24] LABS: BASOPHILS % (AUTO) 0.6 % (0.0-5.0); EOSINOPHILS % (AUTO) 3.1 % (0.0-8.0); HEMATOCRIT 39.4 % (42-54); LYMPHOCYTES % (AUTO) 10.1 % (21.0-51.0); MEAN CORPUSCULAR HEMOGLOBIN 29.7 pg (27.0-33.0); MEAN CORPUSCULAR HGB CONC 33.6 g/dL (32.0-36.0); MEAN CORPUSCULAR VOLUME 88.5 fL (79-99); MONOCYTES % (AUTO) 7.5 % (3.0-13.0); NEUTROPHILS % (AUTO) 78.7 % (40.0-77.0); PLATELET COUNT (AUTO) 276 K/uL (130-400); RED BLOOD CELL COUNT(AUTO) 4.45 MIL/uL (4.50-6.20); RED CELL DISTRIBUTION WIDTH 14.4 % (11.0-15.5); WHITE BLOOD COUNT (AUTO) 11.3 K/uL (4.8-10.8)
[2019-01-25 05:35] LABS: CREATININE 0.5 mg/dL (0.5-1.5); POTASSIUM 3.6 mmol/L (3.5-5.1)
[2019-01-25] MEDS: POTASSIUM CHLORIDE 20 MEQ ERTAB PO PRN ×2 (05:59→20:27)
--- NOTE | 2019-01-25 05:59 | NUR ---
MEDS PT ALREADY ASLEEP BUT AWAKENED FOR MEDS. PT'S KCL=3.6, STARTED ON POTASSIUM PO COVERAGE, GIVEN WITH PRUNE JUICE, TOLERATED WELL. RE-CHECKED WZ=167/104, HR=89. FOR MORE CARE.
[2019-01-25] MEDS ORDERED: FENTANYL 50 MCG/HR PATCH TD SCH (08:15)
[2019-01-25 08:52] LABS: INR 1.06 (0.85-1.15); PARTIAL THROMBOPLASTIN TIME 28.5 SEC (26.3-35.5); PROTHROMBIN TIME 11.1 SEC (9.6-11.6)
[2019-01-25] MEDS: PANTOPRAZOLE SODIUM 40 MG TABLET.DR PO SCH ×2 (09:00→20:27)
[2019-01-25] MEDS: LISINOPRIL 20 MG TABLET PO SCH (09:00)
[2019-01-25] MEDS: ENOXAPARIN SODIUM 40 MG/0.4 ML SYRINGE SQ SCH (09:00)
[2019-01-25] MEDS: METOPROLOL TARTRATE 50 MG TAB PO SCH ×2 (09:00→20:27)
--- NOTE | 2019-01-25 09:00 | NUR ---
PAULINO HELD THIS AM PT. HAS BEEN SCHEDULED FOR PICC LINE PLACEMENT
[2019-01-25] MEDS: NS-20 MEQ KCL 1000ML 1,000 ML IV SCH ×2 (13:02→23:45)
--- NOTE | 2019-01-25 13:08 | NUR ---
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 She states this necessitates referral to hepatobiliary surgeon, Dr. Fallon, at [facility]. Orders entered. Will update primary, and Dr. Fajardo.
--- NOTE | 2019-01-25 13:45 | NUR ---
TRANSFER PLACED A CALL TO [facility] TO INITIATE A TRANSFER FOR HEPATOBILIARY SURGEON. SPOKE WITH BRYSON GAVE HER ALL PERTINENT INFORMATION. AWAITING CALLBACK
--- NOTE | 2019-01-25 14:00 | NUR ---
PICC LINE PLACED, X RAY ORDERED.
--- NOTE | 2019-01-25 14:33 | NUR ---
picc line 5 macedonian 2 lumen picc line inserted to right upper arm using sterile technique, pt tolerated well. picc line catheter at 39 cm insertion site. 1 cm exposed, picc line sterile dressing applied to site. pt denied any pain , numbness, tingling to right arm. chest xray done. pending chest xray report to be read by Radiologist. Report given to Dulce Huff RN to wait for report before using it. both ports flushed without difficulty, both ports with good blood return.
--- NOTE | 2019-01-25 14:52 | NUR ---
RD UPDATE Notification for TPN recommendations received. Pt with PICC placed. RD Recommends Clinimix 5/15 @75mls/hr (90gm Protein/1278kcals/GIR=2.76). Recommendations placed in Pt chart. Pt with wt loss. RD to continue to monitor and recommend to increase rate gradually to meet Pt needs. Noted, Lipase level decrease (1365). RD to continue to monitor. Please notify RD as additional nutrition concerns arise. Thank you.
--- NOTE | 2019-01-25 18:00 | NUR ---
TRANSFER RECEIVED A CALL FROM [facility] SPOKE WITH GABRIELA, DHR IS AT CAPACITY AT THIS TIME, TRANSFER DECLINED. PT & FAMILY, CN AND PRIMARY NURSE INFORMED
--- NOTE | 2019-01-25 18:22 | NUR ---
RE: ORDER TO TRANSFER TO [facility] FOR REFERRAL TO HEPATOBILIARY SURGEON. REC'D NOTICE FROM DIRECTOR ORGANIZATIONAL THAT THERE ARE NO BEDS AVAILABLE AT [facility]. ADVISED DR Jerry ELLIOTT, ORDERING MD; REC'D ORDERS TO TRY AGAIN IN THE AM TO ANY OTHER OUT [facility] SURGEON THAT WILL ACCEPT. HS UPDATED WITH NEW ORDERS.
--- NOTE | 2019-01-25 20:05 | NUR ---
PAGE PATRICIA SMART NP INSPECTOR COLD WORKING FOR HOSPITALIST, VIA ANSWERING SERVICE. MAINTENANCE PAINTER APPRENTICE CALLED AND REFERRED PT'S CHEST X-RAY RESULTS FOR PICC LINE USE. ORDERED TO USE PICC LINE. MAINTENANCE PAINTER APPRENTICE MADE AWARE OF PT'S ELEVATED BP. BELLOWS ASSEMBLER ASKED IF PO MEDS WILL BE HELD PT IS NPO BUT STATED TO GIVE PO MEDS WITH SMALL AMOUNT OF WATER. CLARIFIED IVF SINCE BELLOWS ASSEMBLER IS GOING TO START CLINIMIX BUT MAINTENANCE PAINTER APPRENTICE STATED TO GIVE IVF ORDERED.
[2019-01-25] MEDS: ALPRAZOLAM 0.25 MG TABLET PO PRN (20:27)
--- NOTE | 2019-01-25 20:27 | NUR ---
MEDS SHIFT ASSESSMENT DONE, PLEASE REFER TO CHART. DUE MEDS ADMINISTERED AND MORPHINE IV GIVEN FOR PAINS. PO MEDS GIVEN WITH SIPS OF WATER. KEPT RESTED AND COMFORTABLE IN BED. CALL LIGHT WITHIN REACH. KEPT NPO. WILL RE-ASSESS PT. Addendum: 01/26/19 at 0058 by LEN CASTILLO RN RN Amended: Links added.
[2019-01-25] MEDS: M.V.I. IV [ADULT] 10 ML in CLINIMIX E 5%-15% 2,000 ML IV SCH (21:55)
[2019-01-25] MEDS: ZOLPIDEM TARTRATE 5 MG TAB PO PRN (21:55)
--- NOTE | 2019-01-25 22:00 | NUR ---
PAIN PT CALLS FOR PAIN MEDICATION. PT'S RE-CHECK BP STILL HIGH AT 184/108, HR=79. DILAUDID IV GIVEN FOR PAINS AND CLONIDINE PO GIVEN FOR HIGH BP. KEPT RESTED AND COMFORTABLE. WILL RE-ASSESS PT.
[2019-01-26] VITALS (7 sets, daily range): BP systolic 110–183; BP diastolic 72–103
[2019-01-26] MEDS: ACETAMINOPHEN-CODEINE 300/30MG TAB PO PRN (00:15)
[2019-01-26] MEDS: HYDRALAZINE HCL 20 MG/ML VIAL IV PRN (00:15)
--- NOTE | 2019-01-26 00:15 | NUR ---
BP PT'S BP STILL ELEVATED AT 187/101 AND RE-CHECK 183/103, HR=76. PT CLAIMS OF ABDOMINAL PAINS. MEDICATED WITH TYLENOL #3 1 TAB AND HYDRALAZINE IV. ENCOURAGED TO REST AND SLEEP. WILL RE-ASSESS PT. Addendum: 01/26/19 at 0102 by LEN CASTILLO RN RN Amended: Links added.
--- NOTE | 2019-01-26 02:00 | NUR ---
ROUNDS PT FAIRLY ASLEEP WITH RESPIRATIONS EVEN AND UNLABORED. NO DISTRESS NOTED. KEPT RESTED AND COMFORTABLE. CALL LIGHT WITHIN REACH. WILL MONITOR PT.
[2019-01-26] MEDS: NS-20 MEQ KCL 1000ML 1,000 ML IV SCH ×3 (03:10→22:32)
[2019-01-26] MEDS: HYDROMORPHONE HCL 0.5 MG/0.5 ML ML IVP PRN ×5 (03:11→22:33)
--- NOTE | 2019-01-26 05:15 | NUR ---
DRAW PT FAIRLY ASLEEP BUT AWAKENS WHEN APPLIED TECHNOLOGIST ENTERS ROOM. BOTH PICC PORTS FLUSHES WELL WITH GOOD BLOOD RETURN. BLOOD DRAWN FROM PICC PORT. SENT TO LAB FOR ANALYSIS. ENCOURAGED PT TO GO BACK TO SLEEP. FOR MORE CARE.
[2019-01-26 05:56] LABS: HEMATOCRIT 35.8 % (42-54); MEAN CORPUSCULAR HEMOGLOBIN 29.9 pg (27.0-33.0); MEAN CORPUSCULAR HGB CONC 33.5 g/dL (32.0-36.0); MEAN CORPUSCULAR VOLUME 89.2 fL (79-99); PLATELET COUNT (AUTO) 261 K/uL (130-400); RED BLOOD CELL COUNT(AUTO) 4.02 MIL/uL (4.50-6.20); RED CELL DISTRIBUTION WIDTH 14.4 % (11.0-15.5); WHITE BLOOD COUNT (AUTO) 8.8 K/uL (4.8-10.8)
[2019-01-26 06:09] LABS: ALBUMIN 2.5 g/dL (3.5-5.0); BILIRUBIN,TOTAL 1.1 mg/dL (0.2-1.0); CREATININE 0.5 mg/dL (0.5-1.5); MAGNESIUM 2.2 mg/dL (1.80-2.40); PHOSPHORUS 3.9 mg/dL (2.5-4.9); POTASSIUM 3.8 mmol/L (3.5-5.1); TOTAL PROTEIN, SERUM 5.9 g/dL (6.0-8.3)
[2019-01-26] MEDS: PANTOPRAZOLE SODIUM 40 MG TABLET.DR PO SCH ×2 (09:30→20:44)
[2019-01-26] MEDS: LISINOPRIL 20 MG TABLET PO SCH (09:30)
[2019-01-26] MEDS: METOPROLOL TARTRATE 50 MG TAB PO SCH ×2 (09:30→20:45)
[2019-01-26] MEDS: ENOXAPARIN SODIUM 40 MG/0.4 ML SYRINGE SQ SCH (09:31)
[2019-01-26] MEDS: ALPRAZOLAM 0.25 MG TABLET PO PRN (12:07)
--- NOTE | 2019-01-26 13:35 | NUR ---
1050 Transfer request follow up information resubmitted to [facility] intake nurse, pt declined for hospital to capacity. 1105 Spoke to [facility] pt declined service not provided. 1110 Met with pt inform of transfer process and of the above verbalized understanding and would like for me to try [place]. [address] to transfer center coordinator to [facility] information provided and fax. 1325 evaluator transfer students call back with a denial due to did not pass financial clearance. Primary nurse notified. Bobby galo
--- NOTE | 2019-01-26 14:36 | NUR ---
Dr Casillas notified of patient saying needs pain medications , he said he will place medication now
[2019-01-26] MEDS ORDERED: HYDROMORPHONE HCL 0.5 MG/0.5 ML ML IVP SCH (14:48)
[2019-01-26] MEDS: M.V.I. IV [ADULT] 10 ML in CLINIMIX E 5%-15% 2,000 ML IV SCH (20:15)
[2019-01-26] MEDS: ZOLPIDEM TARTRATE 5 MG TAB PO PRN (20:51)
[2019-01-26] MEDS ORDERED: M.V.I. IV [ADULT] 10 ML in CLINIMIX E 5%-15% 2,000 ML IV SCH (21:00)
[2019-01-27] MEDS: ACETAMINOPHEN-CODEINE 300/30MG TAB PO PRN ×5 (00:36→19:14)
[2019-01-27] MEDS: ONDANSETRON HCL 4 MG/2 ML VIAL IVP PRN (00:56)
[2019-01-27] MEDS: HYDROMORPHONE HCL 0.5 MG/0.5 ML ML IVP PRN ×5 (02:40→21:31)
[2019-01-27 03:51] VITALS: BP 163/96
[2019-01-27 07:00] VITALS: BP 129/77
--- NOTE | 2019-01-27 07:11 | NUR ---
[facility] ATTEMPTED TRANSFER TO [facility]. STATES THEY ARE AT CAPACITY--TRANSFER DENIED
--- NOTE | 2019-01-27 07:28 | NUR ---
[facility] CALL PLACED TO [employer]PER[employer]ENT [employer] TO INITIATE TRANSFER
--- NOTE | 2019-01-27 08:41 | NUR ---
[facility] PERTINENT INFORMATION FAXED REQUESTED
--- NOTE | 2019-01-27 09:01 | NUR ---
[facility] REPAIRER HAS CALLED BACK STATING THEY ARE AT CAPACITY--TRANSFER DENIED
[2019-01-27] MEDS: METOPROLOL TARTRATE 50 MG TAB PO SCH ×2 (09:03→21:31)
[2019-01-27] MEDS: LISINOPRIL 20 MG TABLET PO SCH (09:04)
[2019-01-27] MEDS: PANTOPRAZOLE SODIUM 40 MG TABLET.DR PO SCH ×2 (09:04→21:32)
[2019-01-27] MEDS: ENOXAPARIN SODIUM 40 MG/0.4 ML SYRINGE SQ SCH (09:09)
[2019-01-27 11:00] VITALS: BP 125/78
[2019-01-27] MEDS: BISACODYL 10 MG SUPP.RECT RC PRN (13:28)
--- NOTE | 2019-01-27 15:31 | NUR ---
DR CABA ROUNDED ON PATIENT ORDERS RECEIVED FOR CBC, CMP, AMYLASE, PHOS, LIPASE AND INCREASE FENTANYL PATCH TO 75 MCG ORDERS PLACED
[2019-01-27 16:00] VITALS: BP 165/103
--- NOTE | 2019-01-27 16:55 | NUR ---
2151 transfer request to [facility] phone call place spoke with [facility] nursing unit coordinator [phone] information provided and fax at [phone], [facility] states full to capacity and on diversion, but will call back. [phone] call received from nursing unit coordinator Monty which states Dr Anderson spoke with our DR /Dr Lny Casillas and pt declined due to not appropriate for transfer at this time. Bobby galo
[2019-01-27 17:06] VITALS: BP 124/63
[2019-01-27 20:00] VITALS: BP 164/95
[2019-01-27] MEDS ORDERED: M.V.I. IV [ADULT] 10 ML in CLINIMIX E 5%-15% 2,000 ML IV SCH (21:00)
[2019-01-28] VITALS: BP 154/99
[2019-01-28] MEDS: M.V.I. IV [ADULT] 10 ML in CLINIMIX E 5%-15% 2,000 ML IV SCH ×2
[2019-01-28] MEDS: HYDROMORPHONE HCL 0.5 MG/0.5 ML ML IVP PRN ×5 (02:07→21:04)
[2019-01-28 04:00] VITALS: BP 156/104
[2019-01-28] MEDS: ACETAMINOPHEN-CODEINE 300/30MG TAB PO PRN ×4 (04:22→16:07)
[2019-01-28 05:21] LABS: HEMATOCRIT 40.2 % (42-54); MEAN CORPUSCULAR HGB CONC 33.6 g/dL (32.0-36.0); MEAN CORPUSCULAR VOLUME 89.2 fL (79-99); NUCLEATED RED BLOOD CELLS 0.1 % (0.0-0.19); PLATELET COUNT (AUTO) 272 K/uL (130-400); RED CELL DISTRIBUTION WIDTH 14.2 % (11.0-15.5); WHITE BLOOD COUNT (AUTO) 11.2 K/uL (4.8-10.8)
[2019-01-28 05:33] LABS: ALBUMIN 3.2 g/dL (3.5-5.0); BILIRUBIN,TOTAL 1.1 mg/dL (0.2-1.0); CREATININE 0.6 mg/dL (0.5-1.5); POTASSIUM 4.5 mmol/L (3.5-5.1); TOTAL PROTEIN, SERUM 7.4 g/dL (6.0-8.3)
[2019-01-28 05:57] LABS: BAND NEUTROPHILS % (MANUAL) 4 % (0-2); BASOPHILS % (MANUAL) 1 % (0-2); EOSINOPHILS % (MANUAL) 5 % (1-6); LYMPHOCYTES % (MANUAL) 8 % (22-44); MAN.DIFF COMMENT-IMPRESSION MANUAL DIFFERENTIAL; MONOCYTES % (MANUAL) 13 % (2-9); SEGMENTED NEUTROPHILS % 69 % (40-70)
[2019-01-28 08:00] VITALS: BP 164/92
--- NOTE | 2019-01-28 08:00 | NUR ---
AM SHIFT ASSESSMENT. CONTINUES WITH C/O OF SEVERE ABDOMINAL PAIN AND ASKING FOR PAIN MEDICATION.
[2019-01-28] MEDS: METOPROLOL TARTRATE 50 MG TAB PO SCH ×2 (09:43→21:05)
[2019-01-28] MEDS: PANTOPRAZOLE SODIUM 40 MG TABLET.DR PO SCH ×2 (09:44→21:05)
[2019-01-28] MEDS: FENTANYL 50 MCG/HR PATCH TD SCH (09:46)
[2019-01-28] MEDS: ENOXAPARIN SODIUM 40 MG/0.4 ML SYRINGE SQ SCH (09:47)
[2019-01-28] MEDS: LISINOPRIL 20 MG TABLET PO SCH (10:00)
[2019-01-28 12:00] VITALS: BP 164/98
[2019-01-28] MEDS: NS-20 MEQ KCL 1000ML 1,000 ML IV SCH (14:04)
[2019-01-28 16:00] VITALS: BP 162/96
--- NOTE | 2019-01-28 16:00 | NUR ---
HAS BEEN ASKING FOR PAIN MED Q 2 HRS. WILL GET DILAUDID Q 4HRS AND IN BETWEEN GETS TYLENOL WITH CODEINE, STATES PAIN IS UNBEARABLE AND DOES NOT KNOW WHY HE HAS NOT BEEN TRANSFERRED TO ANOTHER FOR SURGERY. SIGNIFICANT OTHER IN ROOM AND STATES HOSPICE HAS BEEN REC. BUT PT. IS NOT READY OR MAYBE DOES NOT FULLY UNDERSTAND. SHE ALSO CALLED [facility] THING THEY ASKED WAS IF HE HAD INSURANCE. BOTH HAVE HAVE BEEN TEARY ALL DAY
[2019-01-28 19:00] VITALS: BP 150/88
[2019-01-29] VITALS (7 sets, daily range): BP systolic 120–175; BP diastolic 77–103
[2019-01-29] MEDS: ACETAMINOPHEN-CODEINE 300/30MG TAB PO PRN ×7 (00:07→23:53)
[2019-01-29] MEDS: HYDROMORPHONE HCL 0.5 MG/0.5 ML ML IVP PRN ×6 (01:01→21:48)
[2019-01-29] MEDS: NS-20 MEQ KCL 1000ML 1,000 ML IV SCH ×2 (03:33→21:23)
[2019-01-29] MEDS: ZOLPIDEM TARTRATE 5 MG TAB PO PRN ×2 (03:59→23:56)
[2019-01-29 05:56] LABS: HEMATOCRIT 37.9 % (42-54); MEAN CORPUSCULAR HEMOGLOBIN 29.9 pg (27.0-33.0); MEAN CORPUSCULAR HGB CONC 33.8 g/dL (32.0-36.0); MEAN CORPUSCULAR VOLUME 88.6 fL (79-99); PLATELET COUNT (AUTO) 274 K/uL (130-400); RED BLOOD CELL COUNT(AUTO) 4.27 MIL/uL (4.50-6.20); WHITE BLOOD COUNT (AUTO) 11.2 K/uL (4.8-10.8)
[2019-01-29 06:11] LABS: CREATININE 0.5 mg/dL (0.5-1.5); POTASSIUM 4.1 mmol/L (3.5-5.1)
[2019-01-29] MEDS: METOPROLOL TARTRATE 50 MG TAB PO SCH ×2 (08:25→21:09)
[2019-01-29] MEDS: LISINOPRIL 20 MG TABLET PO SCH (08:25)
[2019-01-29] MEDS: PANTOPRAZOLE SODIUM 40 MG TABLET.DR PO SCH ×2 (08:25→21:09)
[2019-01-29] MEDS: ENOXAPARIN SODIUM 40 MG/0.4 ML SYRINGE SQ SCH (08:31)
[2019-01-30] MEDS: HYDROMORPHONE HCL 0.5 MG/0.5 ML ML IVP PRN ×5 (01:48→18:33)
[2019-01-30 03:47] VITALS: BP 148/81
[2019-01-30] MEDS: ACETAMINOPHEN-CODEINE 300/30MG TAB PO PRN ×5 (03:54→20:46)
--- NOTE | 2019-01-30 04:59 | NUR ---
Pain Assessment Patient continues to have abdominal pain around the clock pain rating the pain at 10 of 10. Patient has been getting Tylenol with codeine Q4H and Dilaudid 4mg QH4 on a timely manner and consistently. However, patient continues to call nurse for pain control a little too early. Patient teaching has been provided several times regarding medication administration according to doctors orders Q4H. Medication times have been written on the patient board. Will relay information to the on coming nurse in a.m.
[2019-01-30 07:30] VITALS: BP_SYST 130; BP_SYST 148; BP_DIAS 79; BP_DIAS 92
[2019-01-30] MEDS: METOPROLOL TARTRATE 50 MG TAB PO SCH ×2 (08:06→20:44)
[2019-01-30] MEDS: PANTOPRAZOLE SODIUM 40 MG TABLET.DR PO SCH ×2 (08:06→20:44)
[2019-01-30] MEDS: LISINOPRIL 20 MG TABLET PO SCH (08:08)
[2019-01-30] MEDS: ENOXAPARIN SODIUM 40 MG/0.4 ML SYRINGE SQ SCH (08:17)
[2019-01-30 11:00] VITALS: BP 132/79
[2019-01-30 16:00] VITALS: BP 134/80
--- NOTE | 2019-01-30 16:00 | NUR ---
Tylenol with codeine scanned now, but administered at 12:30. Scanning information not saved.
[2019-01-30] MEDS: M.V.I. IV [ADULT] 10 ML in CLINIMIX E 5%-15% 2,000 ML IV SCH (16:30)
[2019-01-30 20:00] VITALS: BP 146/82
[2019-01-30] MEDS: NS-20 MEQ KCL 1000ML 1,000 ML IV SCH (20:36)
[2019-01-30] MEDS ORDERED: M.V.I. IV [ADULT] 10 ML in CLINIMIX E 5%-15% 2,000 ML IV SCH (20:45)
[2019-01-30] MEDS: HYDROMORPHONE 1 MG/1 ML AMP IVP PRN (22:28)
[2019-01-30 23:53] VITALS: BP 133/79
[2019-01-31] MEDS: ACETAMINOPHEN-CODEINE 300/30MG TAB PO PRN ×6 (00:11→22:12)
[2019-01-31] MEDS: HYDROMORPHONE 1 MG/1 ML AMP IVP PRN ×5 (02:28→20:02)
[2019-01-31 03:31] VITALS: BP 140/86
[2019-01-31 05:13] LABS: BASOPHILS % (AUTO) 0.6 % (0.0-5.0); HEMATOCRIT 36.9 % (42-54); LYMPHOCYTES % (AUTO) 18.6 % (21.0-51.0); MEAN CORPUSCULAR HEMOGLOBIN 30.2 pg (27.0-33.0); MEAN CORPUSCULAR HGB CONC 34.5 g/dL (32.0-36.0); MEAN CORPUSCULAR VOLUME 87.6 fL (79-99); MONOCYTES % (AUTO) 9.2 % (3.0-13.0); NEUTROPHILS % (AUTO) 68.6 % (40.0-77.0); PLATELET COUNT (AUTO) 252 K/uL (130-400); RED BLOOD CELL COUNT(AUTO) 4.21 MIL/uL (4.50-6.20); RED CELL DISTRIBUTION WIDTH 14.1 % (11.0-15.5); WHITE BLOOD COUNT (AUTO) 9.5 K/uL (4.8-10.8)
[2019-01-31 05:33] LABS: CREATININE 0.5 mg/dL (0.5-1.5); POTASSIUM 4.4 mmol/L (3.5-5.1)
[2019-01-31 07:30] VITALS: BP 167/98
[2019-01-31] MEDS: METOPROLOL TARTRATE 50 MG TAB PO SCH ×2 (08:55→20:02)
[2019-01-31] MEDS: LISINOPRIL 20 MG TABLET PO SCH (08:56)
[2019-01-31] MEDS: PANTOPRAZOLE SODIUM 40 MG TABLET.DR PO SCH ×2 (08:56→20:02)
[2019-01-31] MEDS: FENTANYL 50 MCG/HR PATCH TD SCH (08:56)
[2019-01-31] MEDS: ENOXAPARIN SODIUM 40 MG/0.4 ML SYRINGE SQ SCH (08:59)
[2019-01-31 11:00] VITALS: BP 161/99
[2019-01-31] MEDS: NS-20 MEQ KCL 1000ML 1,000 ML IV SCH (13:32)
--- NOTE | 2019-01-31 15:58 | NUR ---
RD Follow up Pt to continue TPN. Possible Hospice. Pt with Cholangiocarcinoma and continues with abdominal pain. LBM 01/29/12. Pt monitored labs: Na 133, Cl 99, BG 166, T. Bili 1.1, AST 45, Alk 160, alb 3.2, Lipase 789. Please notify RD as nutritional concerns arise. Thank you. Addendum: 01/31/19 at [address] RD Amended: Links added.
[2019-01-31 16:00] VITALS: BP 149/95
[2019-01-31] MEDS ORDERED: M.V.I. IV [ADULT] 10 ML in CLINIMIX E 5%-15% 2,000 ML IV SCH (18:00)
--- NOTE | 2019-01-31 19:29 | NUR ---
ignacio sup. working on [place] transfer.
[2019-01-31 19:44] VITALS: BP 159/87
[2019-01-31 23:00] VITALS: BP 179/95
[2019-01-31] MEDS: HYDRALAZINE HCL 20 MG/ML VIAL IV PRN (23:16)
[2019-02-01] MEDS: HYDROMORPHONE 1 MG/1 ML AMP IVP PRN ×6 (00:02→20:41)
[2019-02-01] MEDS: ACETAMINOPHEN-CODEINE 300/30MG TAB PO PRN ×6 (02:00→23:06)
[2019-02-01 04:02] VITALS: BP 140/81
[2019-02-01 08:03] VITALS: BP 151/85
[2019-02-01] MEDS: PANTOPRAZOLE SODIUM 40 MG TABLET.DR PO SCH ×2 (10:48→20:41)
[2019-02-01] MEDS: METOPROLOL TARTRATE 50 MG TAB PO SCH ×2 (10:48→20:40)
[2019-02-01] MEDS: LISINOPRIL 20 MG TABLET PO SCH (10:49)
[2019-02-01] MEDS: ENOXAPARIN SODIUM 40 MG/0.4 ML SYRINGE SQ SCH (10:50)
--- NOTE | 2019-02-01 11:40 | NUR ---
01/31/[address] to [facility] spoke with transfer coordination information provided and fax. will call back. 1655 face sheet re fax claimed was not received. 1830 claimed face sheet was just received now will have to follow in am for case management to review. 02/01/19 1130 follow up with the status of the library services coordinator working on an accepting physician will call back. 1136 coordinator Tommie call back with a denial for no accepting physician. Dr Gómez made aware. Bobby galo
[2019-02-01] MEDS: NS-20 MEQ KCL 1000ML 1,000 ML IV SCH ×2 (11:49→12:11)
[2019-02-01 12:06] VITALS: BP 151/85
--- NOTE | 2019-02-01 15:34 | NUR ---
DISCUSSED PLAN OF CARE WITH PT ADVISED PT THAT NO TRANSFER FOR [facility]. WE HAVE EXHAUSTED OUR TRANSPFER OPTIONS, AND THAT WE HAVE BEEN TOLD BY OTHER FACLITIES THAT THE REREQUESTED SURGERY IS NONEMERGENT. TOLD TO THIS CM BY DR. LOPEZ, THE PLAN IS TO DISCHARGE PT FROM THE HOSPITAL WHEN TOLERATING PO INTAKE, WHEN HIS PANCREATITIS IS RESOLVING. ADVISED PT OF SAME. ADIVSED PT THAT HIS PANCREATITIS IS IMPROVING WITH BOWEL REST, THAT HIS VITALS ARE STABLE, THE LIPIDS ARE IMPROVING, AND HE WILL BE DISCHARGED TO FOLLOW UP WITH ONCOLOGY HER OR IN [place]. PT VERY UPSET, STATES HE HAS NO MONEY TO GO TO [place], AND HOW WILL HE GET THERE/ ADVISED PT THAT [facility] WILL NOT BE TRANSFERRING HIM, CM TO PROVIDE PT MD SALIMA ROSE APPLICATION. ADVISED THIS IS JUST ONE PROGRAM THAT PTS/FMIALYS SEEK OUT AND APPLY TO THEMSELVES THAT MAY HELP . EARL TRIANA AND PT'S GIRLFRIEND AT BEDSIDE.
[2019-02-01 17:13] VITALS: BP 163/94
[2019-02-01] MEDS ORDERED: M.V.I. IV [ADULT] 10 ML in CLINIMIX E 5%-15% 2,000 ML IV SCH (18:00)
[2019-02-01 19:40] VITALS: BP 158/95
[2019-02-02] VITALS: BP 172/98
[2019-02-02] MEDS: HYDROMORPHONE 1 MG/1 ML AMP IVP PRN ×6 (00:02→20:55)
[2019-02-02] MEDS: ACETAMINOPHEN-CODEINE 300/30MG TAB PO PRN ×6 (03:02→23:53)
[2019-02-02 06:01] LABS: BASOPHILS % (AUTO) 0.9 % (0.0-5.0); HEMATOCRIT 36.2 % (42-54); LYMPHOCYTES % (AUTO) 21.6 % (21.0-51.0); MEAN CORPUSCULAR HEMOGLOBIN 30.5 pg (27.0-33.0); MEAN CORPUSCULAR HGB CONC 34.4 g/dL (32.0-36.0); MEAN CORPUSCULAR VOLUME 88.5 fL (79-99); MONOCYTES % (AUTO) 10.6 % (3.0-13.0); NEUTROPHILS % (AUTO) 63.9 % (40.0-77.0); PLATELET COUNT (AUTO) 251 K/uL (130-400); RED BLOOD CELL COUNT(AUTO) 4.09 MIL/uL (4.50-6.20); WHITE BLOOD COUNT (AUTO) 9.1 K/uL (4.8-10.8)
[2019-02-02 06:30] LABS: CREATININE 0.5 mg/dL (0.5-1.5); POTASSIUM 4.2 mmol/L (3.5-5.1)
[2019-02-02] MEDS: ALPRAZOLAM 0.25 MG TABLET PO PRN (06:37)
[2019-02-02 08:00] VITALS: BP 157/95
[2019-02-02] MEDS: METOPROLOL TARTRATE 50 MG TAB PO SCH ×2 (08:27→19:52)
[2019-02-02] MEDS: PANTOPRAZOLE SODIUM 40 MG TABLET.DR PO SCH ×2 (08:27→19:52)
[2019-02-02] MEDS: LISINOPRIL 20 MG TABLET PO SCH (08:28)
[2019-02-02] MEDS: ENOXAPARIN SODIUM 40 MG/0.4 ML SYRINGE SQ SCH (08:28)
[2019-02-02 11:42] VITALS: BP 148/92
[2019-02-02 16:00] VITALS: BP 167/97
[2019-02-02] MEDS ORDERED: M.V.I. IV [ADULT] 10 ML in CLINIMIX E 5%-15% 2,000 ML IV SCH (18:15)
[2019-02-02 19:15] VITALS: BP 154/94
[2019-02-03] MEDS: HYDROMORPHONE 1 MG/1 ML AMP IVP PRN ×6 (00:53→22:26)
[2019-02-03] MEDS: ZOLPIDEM TARTRATE 5 MG TAB PO PRN (02:04)
[2019-02-03] MEDS: NS-20 MEQ KCL 1000ML 1,000 ML IV SCH ×2 (02:09→22:35)
[2019-02-03 04:00] VITALS: BP 161/101
[2019-02-03] MEDS: ONDANSETRON HCL 4 MG/2 ML VIAL IVP PRN ×2 (04:59→19:54)
[2019-02-03 05:42] LABS: BASOPHILS % (AUTO) 0.6 % (0.0-5.0); EOSINOPHILS % (AUTO) 1.9 % (0.0-8.0); HEMATOCRIT 36.1 % (42-54); LYMPHOCYTES % (AUTO) 13.7 % (21.0-51.0); MEAN CORPUSCULAR HEMOGLOBIN 29.6 pg (27.0-33.0); MEAN CORPUSCULAR HGB CONC 33.8 g/dL (32.0-36.0); MEAN CORPUSCULAR VOLUME 87.7 fL (79-99); MONOCYTES % (AUTO) 8.7 % (3.0-13.0); NEUTROPHILS % (AUTO) 75.1 % (40.0-77.0); PLATELET COUNT (AUTO) 252 K/uL (130-400); RED BLOOD CELL COUNT(AUTO) 4.12 MIL/uL (4.50-6.20); RED CELL DISTRIBUTION WIDTH 14.1 % (11.0-15.5); WHITE BLOOD COUNT (AUTO) 8.9 K/uL (4.8-10.8)
[2019-02-03 05:47] LABS: CREATININE 0.6 mg/dL (0.5-1.5); MAGNESIUM 1.8 mg/dL (1.80-2.40); POTASSIUM 3.9 mmol/L (3.5-5.1)
[2019-02-03 08:00] VITALS: BP 159/98
[2019-02-03] MEDS: FENTANYL 50 MCG/HR PATCH TD SCH (08:59)
[2019-02-03] MEDS: METOPROLOL TARTRATE 50 MG TAB PO SCH ×2 (09:08→19:49)
[2019-02-03] MEDS: ENOXAPARIN SODIUM 40 MG/0.4 ML SYRINGE SQ SCH (09:09)
[2019-02-03] MEDS: LISINOPRIL 20 MG TABLET PO SCH (09:09)
[2019-02-03] MEDS: PANTOPRAZOLE SODIUM 40 MG TABLET.DR PO SCH ×2 (09:09→19:49)
--- NOTE | 2019-02-03 10:00 | NUR ---
REVIEW PLAN . OF CARE, . PT NPO STATUS, AND HAS TPN .AND IVF . FOR CARE. PT HAS A PICC LINE TO HIS RT UPPER ARM . AND CALL LIGHT IN REACH.. PT STEADY WITH REQUIRE PAIN MEDICATION NEEDED Q 4HRS .
[2019-02-03] MEDS: ACETAMINOPHEN-CODEINE 300/30MG TAB PO PRN ×2 (10:27→19:50)
[2019-02-03] MEDS ORDERED: HALOPERIDOL LACTATE 5 MG/ML VIAL IM PRN (11:00)
[2019-02-03 11:49] VITALS: BP 118/84
[2019-02-03] MEDS: METOCLOPRAMIDE 10 MG/2 ML VIAL IVP SCH ×2 (14:00→17:55)
[2019-02-03] MEDS: GABAPENTIN 100 MG CAPSULE PO SCH ×2 (14:04→19:49)
--- NOTE | 2019-02-03 15:32 | NUR ---
Nutrition f/u: Pt continues on TPN nutrition. As per EARL Boggs, pt to advance to clear liquid diet therapy. TPN to continue until diet advanced to solids and is well tolerated by pt. Recommendations: Advance diet therapy as tolerated to GI Soft/bland diet, 775gmCCD modified. BALBINA to continue monitoring pt's nutritional status for continued intervention Addendum: 02/03/19 at [address] Amended: Links added.
[2019-02-03 15:44] VITALS: BP_SYST 172; BP_SYST 174; BP_DIAS 100; BP_DIAS 102
--- NOTE | 2019-02-03 17:00 | NUR ---
PSYCH CONSULT REQUESTED BY CM PT WAS SCREAMING IN PAIN TODAY, MOVING AROUND THE ROOM, COMING TO THE DOOR OF THE ROOM TO MAKE SURE HE WAS HEARD, ALL NOISE STOPPED VEYR SUDDENLY ALMOST BEFORE PAIN MEDICAITON WAS GIVEN. PT APPEARS VEYR FEARFUL AND DISTRUSTFUL THAT HE WILL NOT BE CARED FOR. PSYCH CONSULT REQUESTED AN AID TO DISCHARGE WITH OPTIMUM MEDICATION
--- NOTE | 2019-02-03 17:30 | NUR ---
PT WAS STARTED ON CL LIQ AN STATED THAT IT GET HIM SICK IN PAIN .
[2019-02-03] MEDS ORDERED: M.V.I. IV [ADULT] 10 ML in CLINIMIX E 5%-15% 2,000 ML IV SCH (19:45)
[2019-02-03 20:00] VITALS: BP 185/105
[2019-02-03 21:45] VITALS: BP 167/96
[2019-02-04] VITALS (7 sets, daily range): BP systolic 136–166; BP diastolic 79–95
[2019-02-04] MEDS: METOCLOPRAMIDE 10 MG/2 ML VIAL IVP SCH ×4 (01:30→18:14)
[2019-02-04] MEDS: HYDROMORPHONE 1 MG/1 ML AMP IVP PRN ×5 (02:27→20:23)
[2019-02-04] MEDS: ZOLPIDEM TARTRATE 5 MG TAB PO PRN (02:32)
[2019-02-04 05:13] LABS: BASOPHILS % (AUTO) 0.7 % (0.0-5.0); EOSINOPHILS % (AUTO) 2.5 % (0.0-8.0); LYMPHOCYTES % (AUTO) 18.5 % (21.0-51.0); MEAN CORPUSCULAR VOLUME 88.3 fL (79-99); MONOCYTES % (AUTO) 10.8 % (3.0-13.0); NEUTROPHILS % (AUTO) 67.5 % (40.0-77.0); PLATELET COUNT (AUTO) 247 K/uL (130-400); RED BLOOD CELL COUNT(AUTO) 4.08 MIL/uL (4.50-6.20); RED CELL DISTRIBUTION WIDTH 14.2 % (11.0-15.5); WHITE BLOOD COUNT (AUTO) 10.6 K/uL (4.8-10.8)
[2019-02-04 05:36] LABS: CREATININE 0.6 mg/dL (0.5-1.5); POTASSIUM 4.4 mmol/L (3.5-5.1)
[2019-02-04] MEDS: ACETAMINOPHEN-CODEINE 300/30MG TAB PO PRN ×5 (05:38→22:35)
[2019-02-04] MEDS: ONDANSETRON HCL 4 MG/2 ML VIAL IVP PRN ×2 (08:44→14:17)
[2019-02-04] MEDS: LISINOPRIL 20 MG TABLET PO SCH (08:44)
[2019-02-04] MEDS: PANTOPRAZOLE SODIUM 40 MG TABLET.DR PO SCH ×2 (08:44→20:19)
[2019-02-04] MEDS: GABAPENTIN 100 MG CAPSULE PO SCH ×3 (08:44→20:19)
[2019-02-04] MEDS: METOPROLOL TARTRATE 50 MG TAB PO SCH ×2 (08:44→20:19)
[2019-02-04] MEDS: ALPRAZOLAM 0.25 MG TABLET PO PRN (08:44)
[2019-02-04] MEDS: ENOXAPARIN SODIUM 40 MG/0.4 ML SYRINGE SQ SCH (08:50)
[2019-02-04] MEDS ORDERED: HYDROXYZINE HCL 50 MG/ML VIAL IM PRN (14:15)
[2019-02-04] MEDS: FENTANYL 75 MCG/HR PATCH TD SCH (14:26)
--- NOTE | 2019-02-04 20:00 | NUR ---
SCD'S-PATIENT REFUSES HE REPORTS HE GET OUT OF BED TO WALK INDEPENDENTLY THROUGHOUT THE DAY. Addendum: 02/04/19 at 2038 by MALIKA JAIMES RN RN Amended: Links added.
[2019-02-04] MEDS ORDERED: M.V.I. IV [ADULT] 10 ML in CLINIMIX E 5%-15% 2,000 ML IV SCH (20:30)
[2019-02-04] MEDS: NS-20 MEQ KCL 1000ML 1,000 ML IV SCH (22:38)
[2019-02-05] MEDS: HYDROMORPHONE 1 MG/1 ML AMP IVP PRN ×5 (00:37→18:32)
[2019-02-05] MEDS: METOCLOPRAMIDE 10 MG/2 ML VIAL IVP SCH ×4 (00:47→18:32)
[2019-02-05] MEDS: ACETAMINOPHEN-CODEINE 300/30MG TAB PO PRN ×5 (03:46→21:02)
[2019-02-05 04:07] VITALS: BP 149/91
[2019-02-05 07:55] VITALS: BP 149/97
[2019-02-05] MEDS: METOPROLOL TARTRATE 50 MG TAB PO SCH ×2 (08:09→21:01)
[2019-02-05] MEDS: ONDANSETRON HCL 4 MG/2 ML VIAL IVP PRN ×2 (08:09→16:24)
[2019-02-05] MEDS: GABAPENTIN 100 MG CAPSULE PO SCH ×3 (08:09→21:01)
[2019-02-05] MEDS: LISINOPRIL 20 MG TABLET PO SCH (08:09)
[2019-02-05] MEDS: PANTOPRAZOLE SODIUM 40 MG TABLET.DR PO SCH ×2 (08:09→21:01)
[2019-02-05] MEDS: ENOXAPARIN SODIUM 40 MG/0.4 ML SYRINGE SQ SCH (08:10)
--- NOTE | 2019-02-05 08:46 | NUR ---
LOVENOX Refuses lovenox. Education provided on doing foot exercies and abulatio to prevent blood pooling in lower extremities and complications from immobility, like DVT. Patient states he prefers to walk and has been walking around [facility].
--- NOTE | 2019-02-05 09:34 | NUR ---
ZONIA Blood was consulted and he was notified in person. Stated he will come back to see patient.
[2019-02-05 12:00] VITALS: BP 126/79
[2019-02-05 16:09] VITALS: BP 159/90
[2019-02-05] MEDS: NS-20 MEQ KCL 1000ML 1,000 ML IV SCH (16:45)
[2019-02-05 20:14] VITALS: BP 156/86
[2019-02-05] MEDS ORDERED: M.V.I. IV [ADULT] 10 ML in CLINIMIX E 5%-15% 2,000 ML IV SCH (20:30)
[2019-02-05 23:31] VITALS: BP 149/84
[2019-02-06] MEDS: METOCLOPRAMIDE 10 MG/2 ML VIAL IVP SCH ×5 (01:13→23:49)
[2019-02-06] MEDS: ACETAMINOPHEN-CODEINE 300/30MG TAB PO PRN ×6 (01:14→23:48)
[2019-02-06] MEDS: ZOLPIDEM TARTRATE 5 MG TAB PO PRN (01:17)
--- NOTE | 2019-02-06 02:45 | NUR ---
assumed care for this patient
[2019-02-06] MEDS: HYDROMORPHONE 1 MG/1 ML AMP IVP PRN ×5 (03:06→21:51)
[2019-02-06 03:33] VITALS: BP 166/102
[2019-02-06 04:52] LABS: BASOPHILS % (AUTO) 0.9 % (0.0-5.0); EOSINOPHILS % (AUTO) 1.3 % (0.0-8.0); HEMATOCRIT 37.9 % (42-54); LYMPHOCYTES % (AUTO) 9.8 % (21.0-51.0); MEAN CORPUSCULAR HEMOGLOBIN 29.7 pg (27.0-33.0); MEAN CORPUSCULAR HGB CONC 33.8 g/dL (32.0-36.0); MEAN CORPUSCULAR VOLUME 87.8 fL (79-99); MONOCYTES % (AUTO) 6.9 % (3.0-13.0); NEUTROPHILS % (AUTO) 81.1 % (40.0-77.0); PLATELET COUNT (AUTO) 237 K/uL (130-400); RED BLOOD CELL COUNT(AUTO) 4.32 MIL/uL (4.50-6.20); RED CELL DISTRIBUTION WIDTH 14.1 % (11.0-15.5); WHITE BLOOD COUNT (AUTO) 11.7 K/uL (4.8-10.8)
[2019-02-06 05:12] LABS: ALBUMIN 3.2 g/dL (3.5-5.0); CREATININE 0.7 mg/dL (0.5-1.5); POTASSIUM 4.4 mmol/L (3.5-5.1); TOTAL PROTEIN, SERUM 7.5 g/dL (6.0-8.3)
[2019-02-06] MEDS: HYDRALAZINE HCL 20 MG/ML VIAL IV PRN ×2 (05:19→16:57)
[2019-02-06 08:00] VITALS: BP 161/92
[2019-02-06] MEDS: ENOXAPARIN SODIUM 40 MG/0.4 ML SYRINGE SQ SCH (08:29)
[2019-02-06] MEDS: LISINOPRIL 20 MG TABLET PO SCH (10:31)
[2019-02-06] MEDS: PANTOPRAZOLE SODIUM 40 MG TABLET.DR PO SCH ×2 (10:31→21:45)
[2019-02-06] MEDS: GABAPENTIN 100 MG CAPSULE PO SCH ×3 (10:31→21:45)
[2019-02-06] MEDS: METOPROLOL TARTRATE 50 MG TAB PO SCH ×2 (10:32→21:45)
[2019-02-06] MEDS: ONDANSETRON HCL 4 MG/2 ML VIAL IVP PRN ×2 (10:32→16:56)
[2019-02-06 11:01] VITALS: BP 134/85
[2019-02-06] MEDS: NS-20 MEQ KCL 1000ML 1,000 ML IV SCH (12:12)
[2019-02-06 16:00] VITALS: BP 164/94
[2019-02-06 19:51] VITALS: BP 122/75
--- NOTE | 2019-02-06 21:40 | NUR ---
ASSESSMENT PT RESTING QUIETLY IN BED. FAMILY AT BEDSIDE. IV FLUIDS INFUSING WITHOUT DIFFICULTY. PT AAOX4, PLEASANT, COOPERATIVE. PT REFUSED SCD. CALLBELL REVIEWED AND WITHIN REACH. ASSESSMENT COMPLETED, SEE FLOW SHEET. PT RESTING ANALGESIC Q2H
[2019-02-06 23:49] VITALS: BP 149/87
[2019-02-07] MEDS: ZOLPIDEM TARTRATE 5 MG TAB PO PRN (01:15)
[2019-02-07] MEDS: HYDROMORPHONE 1 MG/1 ML AMP IVP PRN ×5 (02:15→22:02)
[2019-02-07] MEDS: ACETAMINOPHEN-CODEINE 300/30MG TAB PO PRN ×4 (04:26→17:23)
[2019-02-07 04:34] VITALS: BP 144/86
--- NOTE | 2019-02-07 04:34 | NUR ---
UDS UDS (+) FOR COAINE. BERRY DISPENSER OPERATOR MADE AWARE. NO NEW ORDERS RECEIVED.
[2019-02-07 04:46] LABS: BASOPHILS % (AUTO) 0.7 % (0.0-5.0); EOSINOPHILS % (AUTO) 2.1 % (0.0-8.0); HEMATOCRIT 34.8 % (42-54); LYMPHOCYTES % (AUTO) 15.7 % (21.0-51.0); MEAN CORPUSCULAR HEMOGLOBIN 30.3 pg (27.0-33.0); MEAN CORPUSCULAR HGB CONC 34.5 g/dL (32.0-36.0); MEAN CORPUSCULAR VOLUME 87.7 fL (79-99); MONOCYTES % (AUTO) 7.8 % (3.0-13.0); NEUTROPHILS % (AUTO) 73.7 % (40.0-77.0); PLATELET COUNT (AUTO) 275 K/uL (130-400); RED BLOOD CELL COUNT(AUTO) 3.97 MIL/uL (4.50-6.20); WHITE BLOOD COUNT (AUTO) 10.9 K/uL (4.8-10.8)
[2019-02-07] MEDS: NS-20 MEQ KCL 1000ML 1,000 ML IV SCH (04:56)
[2019-02-07 05:09] LABS: ALBUMIN 2.9 g/dL (3.5-5.0); BILIRUBIN,TOTAL 0.9 mg/dL (0.2-1.0); CREATININE 0.6 mg/dL (0.5-1.5); POTASSIUM 4.5 mmol/L (3.5-5.1)
[2019-02-07] MEDS: METOCLOPRAMIDE 10 MG/2 ML VIAL IVP SCH ×4 (06:31→23:14)
[2019-02-07 08:00] VITALS: BP 133/78
[2019-02-07] MEDS: METOPROLOL TARTRATE 50 MG TAB PO SCH ×2 (08:42→20:47)
[2019-02-07] MEDS: PANTOPRAZOLE SODIUM 40 MG TABLET.DR PO SCH ×2 (08:42→20:47)
[2019-02-07] MEDS: GABAPENTIN 100 MG CAPSULE PO SCH ×3 (08:44→20:47)
[2019-02-07] MEDS: ENOXAPARIN SODIUM 40 MG/0.4 ML SYRINGE SQ SCH ×2 (08:44→08:48)
[2019-02-07] MEDS: LISINOPRIL 20 MG TABLET PO SCH (08:44)
[2019-02-07 11:45] VITALS: BP 131/76
[2019-02-07 11:47] VITALS: BP 142/83
[2019-02-07 16:00] VITALS: BP 159/97
--- NOTE | 2019-02-07 16:39 | NUR ---
RD FOLLOW UP Pt tolerating Clear Liquid Diet. Pt with no report of N/V/D. Pt LBM 01/30/19; Recommend to add stool softener/laxative. Pt monitored labs: Na 132, Cl 99, Glu 181, AST 82, ALT 109, Alk 242, Alb 2.9, Lipase 380. Recommend to continue POC. Also recommend to consider pancreatic enzymes with meals, once diet is advanced. RD to continue to monitor. Addendum: 02/07/19 at [address] RD Amended: Links added.
[2019-02-07 20:00] VITALS: BP 144/93
[2019-02-07] MEDS: FENTANYL 75 MCG/HR PATCH TD SCH (20:31)
[2019-02-08] VITALS: BP 185/110
[2019-02-08] MEDS: ACETAMINOPHEN-CODEINE 300/30MG TAB PO PRN ×4 (00:04→12:27)
[2019-02-08] MEDS: NS-20 MEQ KCL 1000ML 1,000 ML IV SCH (01:39)
[2019-02-08] MEDS: HYDROMORPHONE 1 MG/1 ML AMP IVP PRN ×4 (01:59→14:04)
[2019-02-08 03:36] VITALS: BP 162/104
[2019-02-08] MEDS: HYDRALAZINE HCL 20 MG/ML VIAL IV PRN (03:41)
[2019-02-08 05:09] LABS: BASOPHILS % (AUTO) 0.4 % (0.0-5.0); EOSINOPHILS % (AUTO) 0.2 % (0.0-8.0); HEMATOCRIT 38.8 % (42-54); LYMPHOCYTES % (AUTO) 10.5 % (21.0-51.0); MEAN CORPUSCULAR HGB CONC 33.9 g/dL (32.0-36.0); MEAN CORPUSCULAR VOLUME 88.5 fL (79-99); MONOCYTES % (AUTO) 5.5 % (3.0-13.0); NEUTROPHILS % (AUTO) 83.4 % (40.0-77.0); PLATELET COUNT (AUTO) 265 K/uL (130-400); RED BLOOD CELL COUNT(AUTO) 4.38 MIL/uL (4.50-6.20); WHITE BLOOD COUNT (AUTO) 12.1 K/uL (4.8-10.8)
[2019-02-08 05:55] LABS: ALBUMIN 3.2 g/dL (3.5-5.0); BILIRUBIN,TOTAL 1.2 mg/dL (0.2-1.0); CREATININE 0.6 mg/dL (0.5-1.5); POTASSIUM 4.4 mmol/L (3.5-5.1); TOTAL PROTEIN, SERUM 7.5 g/dL (6.0-8.3)
[2019-02-08] MEDS: METOCLOPRAMIDE 10 MG/2 ML VIAL IVP SCH ×2 (06:06→12:27)
[2019-02-08 08:00] VITALS: BP 124/73
[2019-02-08] MEDS: ENOXAPARIN SODIUM 40 MG/0.4 ML SYRINGE SQ SCH (09:00)
[2019-02-08] MEDS: PANTOPRAZOLE SODIUM 40 MG TABLET.DR PO SCH ×2 (09:42→20:42)
[2019-02-08] MEDS: GABAPENTIN 100 MG CAPSULE PO SCH ×3 (09:42→20:41)
[2019-02-08] MEDS: METOPROLOL TARTRATE 50 MG TAB PO SCH ×2 (09:42→20:42)
[2019-02-08] MEDS: LISINOPRIL 20 MG TABLET PO SCH (09:42)
--- NOTE | 2019-02-08 09:56 | NUR ---
PALLIATIVE CARE SW and [employer] Dispatcher present when Dr Norton met with pt and GF, sister, aunt and [address] Norton explained procedures done, pathology results, labs, in great detail. Family voiced understanding. Dr Norton present all options. Dr Norton informed them that pt would be ready for dc soon and encouraged family to assist pt to find insurance with [facility] now that it's open enrollment,and to keep all follow up appts. Per, Dr Norton pt not ready for hospice at this time but could be if he does not have surgery or do follow up care. Dr Norton answered all questions asked and family was very appreciative.
[2019-02-08 11:59] VITALS: BP 89/60
[2019-02-08] MEDS ORDERED: FENTANYL 100 MCG/HR PATCH TD SCH (15:15)
[2019-02-08] MEDS: HYDROMORPHONE HCL 2 MG TAB PO PRN ×3 (15:49→21:58)
[2019-02-08 16:00] VITALS: BP_SYST 126; BP_SYST 162; BP_DIAS 79; BP_DIAS 83
--- NOTE | 2019-02-08 16:14 | NUR ---
FENTANYL PATCH WASTE MD INCREASED FENTANYL PATCH FROM 75MCG TO 100MCG. WASTED THE 75MCG PATCH IN OMNICELL.
[2019-02-08] MEDS: METOCLOPRAMIDE 10 MG TABLET PO SCH ×2 (17:55→20:42)
[2019-02-08] MEDS ORDERED: HYDROMORPHONE HCL 2 MG TAB PO ONE (18:00)
[2019-02-08 20:00] VITALS: BP 140/86
[2019-02-08] MEDS: ZOLPIDEM TARTRATE 5 MG TAB PO PRN (23:15)
[2019-02-09] VITALS (7 sets, daily range): BP systolic 141–165; BP diastolic 80–102
[2019-02-09] MEDS: HYDROMORPHONE HCL 2 MG TAB PO PRN ×4 (02:06→18:41)
[2019-02-09] MEDS: METOCLOPRAMIDE 10 MG TABLET PO SCH ×4 (06:17→21:26)
[2019-02-09] MEDS: ENOXAPARIN SODIUM 40 MG/0.4 ML SYRINGE SQ SCH ×2 (09:00→09:42)
[2019-02-09] MEDS: METOPROLOL TARTRATE 50 MG TAB PO SCH ×2 (09:41→21:25)
[2019-02-09] MEDS: GABAPENTIN 100 MG CAPSULE PO SCH ×3 (09:41→21:26)
[2019-02-09] MEDS: LISINOPRIL 20 MG TABLET PO SCH (09:42)
[2019-02-09] MEDS: PANTOPRAZOLE SODIUM 40 MG TABLET.DR PO SCH ×2 (09:42→21:26)
--- NOTE | 2019-02-09 10:00 | NUR ---
PAIN DR. HERNANDEZ AT THE BEDSIDE, PATIENT REPORTING PAIN OF 10/10 TO GENERAL ABDOMEN AREA. CURRENT PAIN REGIMEN DISCUSSED WITH PATIENT WELL NEW PLAN TO OPTIMIZE PAIN MANAGEMENT. PATIENT IN AGREEMENT
[2019-02-09] MEDS ORDERED: HYDROMORPHONE HCL 2 MG/ML VIAL IVP PRN (10:15)
[2019-02-09] MEDS: HYDROMORPHONE HCL 0.5 MG/0.5 ML ML IVP PRN ×3 (10:40→22:59)
[2019-02-09] MEDS: FENTANYL 25 MCG/HR PATCH TD SCH (10:45)
[2019-02-09] MEDS: FENTANYL 100 MCG/HR PATCH TD SCH (10:50)
--- NOTE | 2019-02-09 12:00 | NUR ---
FOLLOW UP PAIN PATIENT SITTING UP IN BED, STATES HE IS COMFORTABLE, DENIES PAIN AT THIS TIME. VISITORS AT BEDSIDE. WILL CONTINUE TO MONITOR
--- NOTE | 2019-02-09 13:00 | NUR ---
NAUSEA/VOMITING SPOKE WITH DR. HERNANDEZ REGARDING NAUSEA/VOMITING. NEW ORDER OBTAINED ZOFRAN 8MG Q6HRS PRN
[2019-02-09] MEDS ORDERED: ONDANSETRON HCL 4 MG/2 ML VIAL IVP PRN (13:15)
--- NOTE | 2019-02-09 18:20 | NUR ---
DR. FINK SPOKE WITH DR. FINK REGARDING RECONSULT FOR POSSIBLE NERVE BLOCK. NEW ORDER OBTAIN CONSENT FOR EUS WITH CELIAC BLOCK.NPO AFTER MIDNIGHT. TO BE DONE TOMORROW
[2019-02-10] VITALS (18 sets, daily range): BP systolic 108–158; BP diastolic 68–96
[2019-02-10] MEDS: HYDROMORPHONE HCL 2 MG TAB PO PRN ×2 (03:01→18:40)
[2019-02-10] MEDS: METOCLOPRAMIDE 10 MG TABLET PO SCH ×4 (06:13→20:12)
[2019-02-10] MEDS: HYDROMORPHONE HCL 0.5 MG/0.5 ML ML IVP PRN ×3 (06:13→21:04)
[2019-02-10] MEDS: GABAPENTIN 100 MG CAPSULE PO SCH ×3 (10:32→20:12)
[2019-02-10] MEDS: METOPROLOL TARTRATE 50 MG TAB PO SCH ×2 (10:33→20:12)
[2019-02-10] MEDS: PANTOPRAZOLE SODIUM 40 MG TABLET.DR PO SCH ×2 (10:33→20:12)
[2019-02-10] MEDS: LISINOPRIL 20 MG TABLET PO SCH (10:33)
[2019-02-10] MEDS ORDERED: TRIAMCINOLONE ACETONIDE 10MG/1ML 5ML VIAL IJ ONE (12:45)
[2019-02-10] MEDS ORDERED: BUPIVACAINE/EPI/PF 0.25% 30ML VIAL IJ ONE (12:45)
[2019-02-10] MEDS ORDERED: PROPOFOL 10 MG/ML 20ML VIAL IV ONE (13:26)
--- NOTE | 2019-02-10 13:59 | NUR ---
Nutrition f/u: Pt continues on clear liquid diet. Pt in EUS procedure at time of RD visit. Spoke to pt's Steven, recommend advancing diet when medically feasible to low fat, CC75gm, also recommend considering pancreatic enzymes with every meals. RD to continue monitoring pt's nutritional status for continued intervention. Addendum: 02/10/19 at [address] Amended: Links added.
[2019-02-11] VITALS: BP 136/79
[2019-02-11 04:00] VITALS: BP 129/80
[2019-02-11] MEDS: METOCLOPRAMIDE 10 MG TABLET PO SCH ×4 (06:13→19:54)
[2019-02-11] MEDS: HYDROMORPHONE HCL 2 MG TAB PO PRN ×3 (06:14→19:56)
[2019-02-11 08:04] VITALS: BP 149/85
[2019-02-11] MEDS: PANTOPRAZOLE SODIUM 40 MG TABLET.DR PO SCH ×2 (08:54→19:54)
[2019-02-11] MEDS: GABAPENTIN 100 MG CAPSULE PO SCH ×3 (08:54→21:12)
[2019-02-11] MEDS: LISINOPRIL 20 MG TABLET PO SCH (08:54)
[2019-02-11] MEDS: METOPROLOL TARTRATE 50 MG TAB PO SCH ×2 (08:54→19:54)
[2019-02-11] MEDS: HYDROMORPHONE HCL 0.5 MG/0.5 ML ML IVP PRN ×2 (09:03→15:22)
--- NOTE | 2019-02-11 11:20 | NUR ---
f/u visit Sw spoke to nurse Craig, who reports pt had EUS with celiac block yesterday, but pt continues to demanding medication at scheduled time. Sw entered room and pt was lying quietly watching TV, knees bent and crossed, appeared very comfortable. Informed pt that Dr Norton had called me to f/u on pt. "I told him that I needed a few days. My family is working on getting money together for my trip" "I can't afford my trip, so my family needs time to get money together". "I don't want to be here anymore". "gaston, I can't talk anymore, it's making me hurt" "I just need a few more days". Elis informed nurse and CM of above.
[2019-02-11 11:32] VITALS: BP 154/88
--- NOTE | 2019-02-11 11:33 | NUR ---
f/u with family Sw called pt's CANDICE Stallworth to f/u. Federica states that pt had nerve block yesterday but "doctor told them that it would take 1 to 2 days to kick in" "He is needing pain medication still" GF stated that pain is better but not gone" SW reminded GF that Dr Norton explained to them that pain would never be at zero." "Yes, we understand that, but we are trying to get paperwork together for [facility] and get money together for trip" Explained to GF that pt can't remain in hospital until they get things in order, and reminded her that Dr Norton explained this to them." "Yes, we are trying, but we need money". GF reports that pt is still on liquid diet and he tried the broth last night (because he does not like broth) and he threw up all night." Encouraged GF to have plan in place so they won't get caught off guard with dc". CM informed of above
[2019-02-11] MEDS: ENOXAPARIN SODIUM 40 MG/0.4 ML SYRINGE SQ SCH (11:46)
[2019-02-11 16:30] VITALS: BP 171/86
--- NOTE | 2019-02-11 16:32 | NUR ---
pt states wants pain med; pain level of 10 although patient does not show any facial grimace or guarding. Attempted to give PO dilaudid but states that if he has it ordered then he wants the iv dilaudid.
[2019-02-11 17:48] LABS: BASOPHILS % (AUTO) 0.3 % (0.0-5.0); EOSINOPHILS % (AUTO) 0.8 % (0.0-8.0); HEMATOCRIT 37.5 % (42-54); LYMPHOCYTES % (AUTO) 8.8 % (21.0-51.0); MEAN CORPUSCULAR HEMOGLOBIN 29.8 pg (27.0-33.0); MEAN CORPUSCULAR HGB CONC 33.8 g/dL (32.0-36.0); MEAN CORPUSCULAR VOLUME 88.4 fL (79-99); MONOCYTES % (AUTO) 6.4 % (3.0-13.0); NEUTROPHILS % (AUTO) 83.7 % (40.0-77.0); NUCLEATED RED BLOOD CELLS 0.1 % (0.0-0.19); PLATELET COUNT (AUTO) 281 K/uL (130-400); RED BLOOD CELL COUNT(AUTO) 4.24 MIL/uL (4.50-6.20); RED CELL DISTRIBUTION WIDTH 13.9 % (11.0-15.5); WHITE BLOOD COUNT (AUTO) 16.7 K/uL (4.8-10.8)
[2019-02-11 18:01] LABS: CREATININE 0.6 mg/dL (0.5-1.5); POTASSIUM 3.9 mmol/L (3.5-5.1)
[2019-02-11 18:07] LABS: INR 1.08 (0.85-1.15); PARTIAL THROMBOPLASTIN TIME 29.2 SEC (26.3-35.5); PROTHROMBIN TIME 11.3 SEC (9.6-11.6)
[2019-02-11 18:13] LABS: ALBUMIN 3.3 g/dL (3.5-5.0); BILIRUBIN,TOTAL 1.2 mg/dL (0.2-1.0); PHOSPHORUS 3.5 mg/dL (2.5-4.9); THYROID STIMULATING HORMONE 1.16 uIU/mL (0.36-3.74); TOTAL PROTEIN, SERUM 7.8 g/dL (6.0-8.3); URIC ACID 4.1 mg/dL (2.6-7.2)
[2019-02-11 18:25] LABS: T4 (THYROXINE) 12.4 ug/dL (4.7-13.3)
--- NOTE | 2019-02-11 18:39 | NUR ---
PAGED HOSPITALIST OIL REFINERY PROCESS TECHNICIAN;DDIMER 1,[phone] PENDING CALL BACK.
[2019-02-11 19:28] VITALS: BP 156/92
--- NOTE | 2019-02-11 20:05 | NUR ---
OMKAR WAS NOTIFIED RE; DECREASE DOSE FOR IV DILAUDID, STATES WILL SEE LATER. AND THAT PATIENT HAS POOR PO INTAKE. PER PT HE HAS BEEN VOMITING ALL DAY, BUT ONLY SMALL EMESIS HAVE BEEN NOTED, EMESIS DO ARE SMALL AND DO NOT APPEAR TO BE CONSISTENCY OF THE CLEAR LIQUID DIET. AND WHEN PATIENT ASKED TO LEAVE EMESIS IN BASIN HE REPEATEDLY STATES HE THREW THE EMESIS IN THE TOILET. Addendum: 02/11/19 at 2008 by DANDRE YOUNG RN RN THIS NOTE WAS INTENDED TO BE ENTERED AT 10AM WHEN JOINT CUTTER MACHINE ROUNDED.
--- NOTE | 2019-02-11 21:47 | NUR ---
LABS/PT STATUS D-DIMER RESULTS AND OTHER LABS REPORTED TO CLEMENTE JORGE RN. RAFA ADDITIONAL ORDERS Addendum: 02/12/19 at 0518 by JOSE FORBES RN RN Amended: Links added.
[2019-02-12] VITALS (8 sets, daily range): BP systolic 126–175; BP diastolic 79–99
[2019-02-12] MEDS: HYDROMORPHONE HCL 0.5 MG/0.5 ML ML IVP PRN ×3 (00:05→12:20)
[2019-02-12] MEDS: HYDROMORPHONE HCL 2 MG TAB PO PRN ×4 (03:35→18:42)
--- NOTE | 2019-02-12 05:40 | NUR ---
STATUS UPDATE PT AWAKE ,DEMANDING FOR HIS PAIN MEDS IVP,STATING HIS PAIN LEVEL IS AT 10 OF 10, UNRELIEVED BY PO NARCOTICS, EXPLAINED TO PT RISKS ASSOCIATED WITH FREQUENT AND HIGH DOSES OF NARCOTICS, PT GETTING AGITATED ,SCREAMING . REASSURED MEDICATION WILL BE GIVEN PROMPTLY FOLLOWING PROTOCOL,EXPLAINED FURTHER THAT MD WILL SPEAK WITH PT THIS A.M. DEMANDED TO ELUCIDATE FURTHER THIER PAIN MANAGEMENT REGIMEN. Addendum: 02/12/19 at 0550 by JOSE FORBES RN RN Amended: Links added.
[2019-02-12 05:49] LABS: CREATININE 0.6 mg/dL (0.5-1.5); POTASSIUM 3.7 mmol/L (3.5-5.1)
[2019-02-12] MEDS: METOCLOPRAMIDE 10 MG TABLET PO SCH ×4 (06:31→21:09)
[2019-02-12] MEDS: ENOXAPARIN SODIUM 40 MG/0.4 ML SYRINGE SQ SCH (09:00)
[2019-02-12] MEDS: PANTOPRAZOLE SODIUM 40 MG TABLET.DR PO SCH ×2 (10:25→21:09)
[2019-02-12] MEDS: GABAPENTIN 100 MG CAPSULE PO SCH ×3 (10:25→21:09)
[2019-02-12] MEDS: METOPROLOL TARTRATE 50 MG TAB PO SCH ×2 (10:25→21:09)
[2019-02-12] MEDS: LISINOPRIL 20 MG TABLET PO SCH (10:26)
[2019-02-12] MEDS: FENTANYL 25 MCG/HR PATCH TD SCH (10:26)
[2019-02-12] MEDS: FENTANYL 100 MCG/HR PATCH TD SCH (10:27)
--- NOTE | 2019-02-12 11:12 | NUR ---
Nutrition Follow-up: Pt. on clear Liquid diet x 9 days. Pt. reports poor p.o. intake due to abdominal pain & +N/V. Spoke with pt. regarding nutritional supplementation and pt. agreed to try. Labs reviewed. LBM: 02/03/19. Recommendations: 1) When medically feasible, rec. advancing diet as tolerated to Low Fat 75gm CCD. 2) Rec. Ensure Clear BID with Lunch & dinner meals. 3) Rec. pancreatic enzymes with every meal. 4) Rec. stool softener/laxative. 5) Continue to monitor pt's nutritional status. 6) Consult RD as nutrition concerns arise. Addendum: 02/12/19 at [address] Amended: Links added.
--- NOTE | 2019-02-12 17:00 | NUR ---
DC PLAN? @0900 ,SAW DR. HERNANDEZ - REQUESTED HE CALL L CM WHEN READY TO REVIEW CHART- SPEAK TO PT IN 304 ABOUT DISCHARGE PLANNIGN. WAS ADVISED YESTERDAY THE PLAN FOR DISCHARGE WAS TODAY . NO CALL. NO DC ORDER. CM TO FOLLOW IN AM
[2019-02-12] MEDS: ZOLPIDEM TARTRATE 5 MG TAB PO PRN (21:09)
[2019-02-13] MEDS ORDERED: HYDROMORPHONE 1 MG/1 ML AMP ONE (00:32)
[2019-02-13] MEDS: HYDROMORPHONE HCL 2 MG TAB PO PRN ×5 (03:30→22:26)
[2019-02-13 04:04] VITALS: BP 128/82
[2019-02-13 07:45] VITALS: BP 132/84
[2019-02-13] MEDS: ENOXAPARIN SODIUM 40 MG/0.4 ML SYRINGE SQ SCH (09:00)
[2019-02-13] MEDS: PANTOPRAZOLE SODIUM 40 MG TABLET.DR PO SCH ×2 (09:26→22:04)
[2019-02-13] MEDS: METOPROLOL TARTRATE 50 MG TAB PO SCH ×2 (09:26→22:03)
[2019-02-13] MEDS: GABAPENTIN 100 MG CAPSULE PO SCH ×3 (09:26→22:05)
[2019-02-13] MEDS: LISINOPRIL 20 MG TABLET PO SCH (09:27)
[2019-02-13] MEDS: METOCLOPRAMIDE 10 MG TABLET PO SCH ×4 (09:27→22:03)
[2019-02-13 11:00] VITALS: BP 109/70
[2019-02-13] MEDS: HYDROMORPHONE HCL 0.5 MG/0.5 ML ML IVP PRN (12:24)
[2019-02-13 15:30] VITALS: BP 142/89
[2019-02-13 16:10] LABS: CREATININE 0.6 mg/dL (0.5-1.5); POTASSIUM 3.5 mmol/L (3.5-5.1)
[2019-02-13 20:00] VITALS: BP 124/77
[2019-02-14] VITALS: BP 145/90
[2019-02-14] MEDS: HYDROMORPHONE HCL 0.5 MG/0.5 ML ML IVP PRN ×2 (01:41→13:48)
[2019-02-14 04:00] VITALS: BP 148/92
[2019-02-14 04:30] LABS: HEMATOCRIT 35.5 % (42-54); MEAN CORPUSCULAR HEMOGLOBIN 29.5 pg (27.0-33.0); MEAN CORPUSCULAR HGB CONC 33.7 g/dL (32.0-36.0); MEAN CORPUSCULAR VOLUME 87.5 fL (79-99); PLATELET COUNT (AUTO) 235 K/uL (130-400); RED BLOOD CELL COUNT(AUTO) 4.05 MIL/uL (4.50-6.20); RED CELL DISTRIBUTION WIDTH 13.8 % (11.0-15.5); WHITE BLOOD COUNT (AUTO) 11.5 K/uL (4.8-10.8)
[2019-02-14] MEDS: HYDROMORPHONE HCL 2 MG TAB PO PRN ×2 (04:35→08:11)
[2019-02-14 04:43] LABS: BILIRUBIN,TOTAL 0.8 mg/dL (0.2-1.0); CREATININE 0.6 mg/dL (0.5-1.5); POTASSIUM 3.6 mmol/L (3.5-5.1); TOTAL PROTEIN, SERUM 7.1 g/dL (6.0-8.3)
[2019-02-14] MEDS: METOCLOPRAMIDE 10 MG TABLET PO SCH ×2 (06:50→12:44)
[2019-02-14] MEDS: METOPROLOL TARTRATE 50 MG TAB PO SCH (08:10)
[2019-02-14] MEDS: GABAPENTIN 100 MG CAPSULE PO SCH ×2 (08:10→13:47)
[2019-02-14] MEDS: PANTOPRAZOLE SODIUM 40 MG TABLET.DR PO SCH (08:10)
[2019-02-14] MEDS: LISINOPRIL 20 MG TABLET PO SCH (08:10)
[2019-02-14] MEDS: ENOXAPARIN SODIUM 40 MG/0.4 ML SYRINGE SQ SCH (08:12)
[2019-02-14 09:23] VITALS: BP 151/90
[2019-02-14] MEDS ORDERED: HYDROMORPHONE HCL 2 MG TAB PO PRN (11:45)
--- NOTE | 2019-02-14 11:55 | NUR ---
fentanyl patch/dr sandhu as per dr macedo place fentanyl patch on pt now preparing for DC
[2019-02-14] MEDS: FENTANYL 100 MCG/HR PATCH TD SCH (11:58)
[2019-02-14 12:00] VITALS: BP 138/89
[2019-02-14] MEDS ORDERED: METO50 PO (12:02)
[2019-02-14] MEDS ORDERED: GABA100C PO (12:02)
[2019-02-14] MEDS ORDERED: METO10TA41 PO (12:02)
[2019-02-14] MEDS ORDERED: PANT40TA PO (12:02)
[2019-02-14] MEDS ORDERED: LISI-613 PO (12:02)
[2019-02-14] MEDS ORDERED: FENT1PAT28 TD (12:02)
[2019-02-14] MEDS ORDERED: FENT1PAT25 TD (12:02)
[2019-02-14] MEDS ORDERED: HYDR8TAB2 PO (12:02)
--- NOTE | 2019-02-14 14:17 | NUR ---
PICC LINE REMOVAL PT PLACED IN SUPINE POSITION, PICC LINE REMOVED WITH NO RESISTANCE, NO BLEEDING. PT TOLERATED WELL. 39CM/TRIMMED INTACT PICC LINE REMOVED
--- NOTE | 2019-02-14 14:23 | NUR ---
PT/FAMILT DC EDUCATED PT AND FAMILY/ EDUCATED ON MEDICATION PRESCRIPTIONS, SPECIFICALLY OPIOID MEDICATIONS REGARDING DOSAGE, ROUTE, SCHEDULE TO TAKE MEDS. PT AND VERBALIZED UNDERSTANDING AND SIGNED MED REC. WRITTEN EDUCATION GIVEN WELL.
== END 2019-02-14 14:45 | disposition home or self-care (01) | DRG 435 ==
LOC: EDH 02:38 → EDHIP 05:16 → 3BH 11:40 → 3AH 02-05 08:03
PROVIDERS: ADMIT Internal Medicine; ATTEND Internal Medicine
PROC: 0DJ08ZZ Inspection of Upper Intestinal Tract, Via Natural or Artificial Opening Endoscopic (ICD-10-PCS; 2019-01-18)
PROC: 0F798DZ Dilation of Common Bile Duct with Intraluminal Device, Via Natural or Artificial Opening Endoscopic (ICD-10-PCS; 2019-01-19)
PROC: 0FD98ZX Extraction of Common Bile Duct, Via Natural or Artificial Opening Endoscopic, Diagnostic (ICD-10-PCS; 2019-01-19)
PROC: 02HV33Z Insertion of Infusion Device into Superior Vena Cava, Percutaneous Approach (ICD-10-PCS; 2019-01-25)
PROC: 0DJ08ZZ Inspection of Upper Intestinal Tract, Via Natural or Artificial Opening Endoscopic (ICD-10-PCS; principal; 2019-02-10)
DX: C22.1 Intrahepatic bile duct carcinoma (principal); K85.20 Alcohol induced acute pancreatitis without necrosis or infection; K83.1 Obstruction of bile duct; K85.10 Biliary acute pancreatitis without necrosis or infection; K56.609 Unspecified intestinal obstruction, unspecified as to partial versus complete obstruction; R65.10 Systemic inflammatory response syndrome (SIRS) of non-infectious origin without acute organ dysfunction; K86.1 Other chronic pancreatitis; I16.0 Hypertensive urgency; E87.6 Hypokalemia; F17.200 Nicotine dependence, unspecified, uncomplicated; R73.9 Hyperglycemia, unspecified; I10 Essential (primary) hypertension; K57.90 Diverticulosis of intestine, part unspecified, without perforation or abscess without bleeding; K82.8 Other specified diseases of gallbladder; R53.81 Other malaise; Z53.29 Procedure and treatment not carried out because of patient's decision for other reasons; K31.89 Other diseases of stomach and duodenum; F43.22 Adjustment disorder with anxiety; F39 Unspecified mood [affective] disorder; G47.00 Insomnia, unspecified; Z85.05 Personal history of malignant neoplasm of liver
CPT/HCPCS: 36415; 43237; 43253; 43264; 43274; 43752; 71045; 74018; 74176; 74177; 74183; 74328; 74330; 76705; 78227; 80048; 80053; 80061; 80076; 80305; 81001; 82150; 82465; 82550; 82948; 83036; 83605; 83615; 83690; 83735; 83874; 84100; 84132; 84436; 84443; 84478; 84484; 84550; 85025; 85027; 85378; 85384; 85610; 85651; 85730; 86140; 87040; 88108; 88162; 88305; 93005; A4606; A9537; A9579; C1769; C1894; C2625; C9113; G0378; G0480; J0330; J0360; J0696; J0780; J1170; J1200; J1630; J1650; J1885; J1956; J2175; J2185; J2270; J2405; J2704; J2765; J3010; J3301; J3475; J3480; J3490; J7030; J7042; J7120; Q9963; Q9967

== ENCOUNTER 2019-03-13 15:25 | Inpatient (IN) | payer OTHER ==
[~2019-03-13] VITALS: Ht 170.2 cm; Wt 66.0 kg
[~2019-03-13 15:25] MED LIST: FENT1PAT25 TD; FENT1PAT28 TD; GABA100C PO; HYDR8TAB2 PO; LISI-613 PO; METO10TA41 PO; METO50 PO; PANT40TA PO
[2019-03-13 16:35] LABS: BASOPHILS % (AUTO) 0.1 % (0.0-5.0); HEMATOCRIT 36.4 % (42-54); LYMPHOCYTES % (AUTO) 3.1 % (21.0-51.0); MEAN CORPUSCULAR HEMOGLOBIN 28.8 pg (27.0-33.0); MEAN CORPUSCULAR HGB CONC 34.6 g/dL (32.0-36.0); MEAN CORPUSCULAR VOLUME 83.1 fL (79-99); NEUTROPHILS % (AUTO) 89.9 % (40.0-77.0); PLATELET COUNT (AUTO) 127 K/uL (130-400); RED BLOOD CELL COUNT(AUTO) 4.38 MIL/uL (4.50-6.20); RED CELL DISTRIBUTION WIDTH 14.9 % (11.0-15.5); WHITE BLOOD COUNT (AUTO) 19.8 K/uL (4.8-10.8)
[2019-03-13 16:49] LABS: CREATININE 1.7 mg/dL (0.5-1.5); POTASSIUM 5.3 mmol/L (3.5-5.1)
[2019-03-13 16:54] LABS: ALBUMIN 1.8 g/dL (3.5-5.0); BILIRUBIN,TOTAL 4.1 mg/dL (0.2-1.0); TOTAL PROTEIN, SERUM 5.4 g/dL (6.0-8.3)
[2019-03-13] MEDS ORDERED: SODIUM CHLORIDE 0.9% 500ML 500 ML IV ONE (16:56)
[2019-03-13 17:27] LABS: INR 1.74 (0.85-1.15); PROTHROMBIN TIME 17.9 SEC (9.6-11.6)
[2019-03-13] MEDS ORDERED: ACETAMINOPHEN 325 MG TAB PO PRN ×2 (22:30)
[2019-03-13] MEDS ORDERED: SODIUM CHLORIDE 0.9% 1000ML 1,000 ML IV SCH ×2 (22:30)
[2019-03-13] MEDS ORDERED: NITROGLYCERIN 0.4 MG SL TAB SL PRN (22:30)
[2019-03-13] MEDS ORDERED: ONDANSETRON HCL 4 MG/2 ML VIAL IV PRN (22:30)
[2019-03-13] MEDS ORDERED: ZOSYN 3.375GM+NS 50ML 50 ML IV ONE (23:05)
[2019-03-13] MEDS ORDERED: SODIUM CHLORIDE 0.9% 1000ML 1,000 ML IV ONE (23:05)
[2019-03-13] MEDS ORDERED: AZITHROMYCIN 500MG+NS 250ML 250 ML IV ONE (23:05)
[2019-03-14] VITALS (28 sets, daily range): BP systolic 89–124; BP diastolic 52–85
[2019-03-14 00:34] LABS: APPEARANCE,URINE Cloudy (CLEAR); BILIRUBIN,URINE Moderate (NEGATIVE); COLOR,URINE Dark Yellow (YELLOW); GLUCOSE, URINE (UA) TRACE mg/dL (NEGATIVE); KETONES,URINE Negative (NEGATIVE); LEUKOCYTE ESTERASE ,URINE Small (NEGATIVE); NITRATE,URINE Positive (NEGATIVE); OCCULT BLOOD,URINE Small (NEGATIVE); PROTEIN,URINE POS 1+ mg/dL (NEGATIVE)
[2019-03-14 00:55] LABS: AMORPHOUS SEDIMENT,UR Moderate /LPF (None Seen); BACTERIA,URINE Few /HPF (None Seen); MUCUS,URINE Few LPF (None Seen); RBC,URINE 0-1 /HPF (0-1); SQUAMOUS EPITHELIAL CELL,UR Moderate /HPF (0-2)
[2019-03-14] MEDS ORDERED: NOREPINEPHRINE BITARTRATE 1 MG/1 ML ML IV ONE ×3 (03:02→16:02)
[2019-03-14] MEDS ORDERED: VANCOMYCIN PROTOCOL PER PHARMACY IV SCH (07:45)
[2019-03-14] MEDS ORDERED: SODIUM CHLORIDE 0.9% 1000ML 1,000 ML IV ONE ×2 (07:53→16:02)
[2019-03-14] MEDS ORDERED: VANCOMYCIN 1GM+NS 250ML 250 ML IV ONE (08:07)
[2019-03-14 08:12] LABS: CREATININE 1.7 mg/dL (0.5-1.5); POTASSIUM 5.5 mmol/L (3.5-5.1)
[2019-03-14 08:17] LABS: ALBUMIN 1.8 g/dL (3.5-5.0); BILIRUBIN,TOTAL 4.9 mg/dL (0.2-1.0); MAGNESIUM 2.1 mg/dL (1.80-2.40); PHOSPHORUS 5.9 mg/dL (2.5-4.9); TOTAL PROTEIN, SERUM 5.9 g/dL (6.0-8.3)
[2019-03-14] MEDS: FAMOTIDINE/PF 20 MG/2 ML VIAL IV SCH (09:00)
[2019-03-14] MEDS ORDERED: FAMOTIDINE/PF 20 MG/2 ML VIAL IV ONE (09:36)
[2019-03-14 09:45] LABS: LYMPHOCYTES % (MANUAL) 2 % (22-44); MAN.DIFF COMMENT-IMPRESSION MANUAL DIFFERENTIAL; MONOCYTES % (MANUAL) 6 % (2-9); SEGMENTED NEUTROPHILS % 92 % (40-70)
[2019-03-14 09:48] LABS: PLATELET MORPHOLOGY COMMENT SLIGHTLY DECREASED
[2019-03-14 09:50] LABS: MEAN CORPUSCULAR HEMOGLOBIN 28.1 pg (27.0-33.0); MEAN CORPUSCULAR HGB CONC 33.3 g/dL (32.0-36.0); MEAN CORPUSCULAR VOLUME 84.4 fL (79-99); PLATELET COUNT (AUTO) 106 K/uL (130-400); RED BLOOD CELL COUNT(AUTO) 4.74 MIL/uL (4.50-6.20); RED CELL DISTRIBUTION WIDTH 15.4 % (11.0-15.5); WHITE BLOOD COUNT (AUTO) 20.1 K/uL (4.8-10.8)
[2019-03-14] MEDS ORDERED: ZOSYN 3.375GM+NS 50ML 50 ML IV SCH ×3 (10:00→18:00)
[2019-03-14] MEDS ORDERED: SODIUM CHLORIDE 0.9% 250 ML IV ONE ×2 (10:22→16:03)
[2019-03-14] MEDS ORDERED: COMPOUND IV REFRIGERATED 1 EACH IVSOLN MISC PRN (11:45)
[2019-03-14 12:07] LABS: INR 1.79 (0.85-1.15); PARTIAL THROMBOPLASTIN TIME 36.8 SEC (26.3-35.5); PROTHROMBIN TIME 18.4 SEC (9.6-11.6)
[2019-03-14] MEDS ORDERED: ZOSYN 3.375GM+NS 50ML 50 ML IV ONE (12:46)
[2019-03-14] MEDS: SODIUM CHLORIDE 0.9% 1000ML 1,000 ML IV SCH (15:12)
[2019-03-14] MEDS ORDERED: PHARMACY COMMUNICATION MISC SCH ×3 (17:30→20:15)
[2019-03-14 18:18] LABS: ABG BASE EXCESS -9.1 mmol/L (-2.0-3.0); ABG HCO3 14.7 mmol/L (21.0-28.0); ABG OXYGEN SATURATION 95.4 % (95.0-99.0); ABG PCO2 27 mmHg (35-48)
[2019-03-14] MEDS: VANCOMYCIN 750MG + NS 250 ML IV SCH ×2 (18:40)
[2019-03-14] MEDS ORDERED: HYDROMORPHONE HCL 2 MG TAB PO PRN (18:45)
[2019-03-14] MEDS ORDERED: LEVOFLOXACIN 500 MG/D5W 100 ML 100 ML IV SCH (18:45)
[2019-03-14] MEDS ORDERED: LACTULOSE 20 GM/30 ML UDCUP PO PRN (18:45)
[2019-03-14] MEDS ORDERED: HYDROMORPHONE 1 MG/1 ML AMP IVP PRN (18:45)
[2019-03-14 19:25] LABS: CREATININE 1.8 mg/dL (0.5-1.5); PHOSPHORUS 6.4 mg/dL (2.5-4.9); POTASSIUM 4.8 mmol/L (3.5-5.1)
[2019-03-14] MEDS ORDERED: CALCIUM GLUCONATE 1 GM/10 ML VIAL IV SCH ×2 (19:55→22:25)
--- NOTE | 2019-03-14 20:00 | NUR ---
UPDATE PT REFUSING PO MEDS, NEB TX AND QUEZADA INSERTION AT THIS TIME. PT CONTINUE TO REFUSE CERTAIN TREATMENTS/PROCEDURES " IT IS NOT GOING TO HELP" DESPITE ENCOURAGING PT MULTIPLE TIMES ALONG WITH HELP OF FAMILY AT BEDSIDE.
[2019-03-14] MEDS: MIDODRINE HCL 5 MG TABLET PO SCH ×2 (21:00→21:31)
[2019-03-14] MEDS: METOCLOPRAMIDE 10 MG TABLET PO SCH ×2 (21:00→21:40)
[2019-03-14] MEDS ORDERED: ALBUMIN (HUMAN) 25% 100 ML IV ONE (21:00)
[2019-03-14] MEDS: PANTOPRAZOLE SODIUM 40 MG TABLET.DR PO SCH ×2 (21:00→21:33)
[2019-03-14] MEDS: OCTREOTIDE ACETATE 100 MCG/ML AMP SQ SCH (21:30)
[2019-03-14] MEDS: ZOSYN 3.375GM+NS 50ML 50 ML IV SCH (21:31)
[2019-03-14] MEDS: IPRATROPIUM/ALBUTEROL SULFATE 3 ML SOLUTION IH SCH (21:32)
[2019-03-14] MEDS ORDERED: AZITHROMYCIN 500MG+NS 250ML 250 ML IV SCH (22:30)
[2019-03-15] VITALS (26 sets, daily range): BP systolic 77–123; BP diastolic 40–90
[2019-03-15] MEDS: NOREPINEPHRINE 4MG/NS 250ML 250 ML IV SCH ×2 (00:24→11:45)
[2019-03-15] MEDS: IPRATROPIUM/ALBUTEROL SULFATE 3 ML SOLUTION IH SCH ×5 (01:17→18:00)
[2019-03-15] MEDS: SODIUM CHLORIDE 0.9% 1000ML 1,000 ML IV SCH ×3 (02:54→15:12)
[2019-03-15] MEDS: OCTREOTIDE ACETATE 100 MCG/ML AMP SQ SCH ×2 (04:59→11:53)
[2019-03-15] MEDS: ZOSYN 3.375GM+NS 50ML 50 ML IV SCH ×2 (05:00→11:57)
[2019-03-15] MEDS: VANCOMYCIN 750MG + NS 250 ML IV SCH ×2 (06:46)
[2019-03-15] MEDS: FAMOTIDINE/PF 20 MG/2 ML VIAL IV SCH (09:11)
[2019-03-15] MEDS: METOCLOPRAMIDE 10 MG TABLET PO SCH ×3 (09:11→16:30)
[2019-03-15] MEDS: PANTOPRAZOLE SODIUM 40 MG TABLET.DR PO SCH (09:12)
[2019-03-15] MEDS: MIDODRINE HCL 5 MG TABLET PO SCH ×2 (09:12→14:00)
--- NOTE | 2019-03-15 11:35 | NUR ---
DYSPHAGIA EVAL COMPLETED. Pt AT HIGH RISK FOR ASPIRATION AND LONG-STANDING HISTORY OF POOR P.O. RECOMMEND SHORT-TERM ALTERNATE MEANS OF NUTRITION/HYDRATION WITH PLEASURE FEEDS OF PUREED, THIN LIQUIDS. RECOMMEND: 1. DYSPHAGIA THERAPY 3-5X WEEK TO INCREASE ORAL MOTOR STRENGTH AND PHARYNGEAL SWALLOW: LTG#1: Pt WILL TOLERATE LEAST RESTRICTIVE DIET TO MEET NUTRITION/HYDRATION WITH NO S/S OF ASPIRATION. LTG#2: SKILLED EDUCATION Pt/FAMILY/STAFF STG#1: Pt WILL PARTICIPATE IN LARYNGEAL ELEVATION/EXCURSION EXERCISES WITH 80% ACCURACY. STG#2: Pt WILL PARTICIPATE IN TONGUE BASE RETRACTION EXERCISES WITH 80% ACCURACY. STG#3: Pt WILL PARTICIPATE IN ORAL MOTOR EXERCISES WITH 80% ACCURACY. STG#4: Pt WILL PARTICIPATE IN PLEASURE FEEDS OF PUREED AND THIN LIQUID CONSISTENCY WITH NO S/S OF ASPIRATION. STG#5: Pt WILL BE ABLE TO PARTICIPATE IN MBSS. STG#6: SKILLED EDUCATION Pt/FAMILY/STAFF. Addendum: 03/15/19 at 1138 by CARL GUZMAN [facility] Amended: Links added.
--- NOTE | 2019-03-15 11:47 | NUR ---
RD NOTIFICATION HX: PANCREATIC CANCER, SEVERE PANCREATITIS, GASTRITIS. PT WITH SEVERE MALNUTRITION AND FAILURE TO THRIVE. PT CONTINUES WITH POOR PO PRIOR TO ADMISSION, HOWEVER HAS HAD 5 POUND WEIGHT GAIN SINCE LAST ADMISSION. LABS REVIEWED. MEDS REVIEWED. NON-PITTING EDEMA AND COCCYX ULCER NOTED. PICC LINE CURRENTLY IN PLACE. RD RECOMMENDS TO START TOTAL PARENTERAL NUTRITION (TPN) VIA PICC LINE USE PRE-MIXED CLINIMIX E 5/15 AT 60ML/HR HOLD OFF ON FAT EMULSION FOR NOW, FIRST RUN LIPID PANEL AND LIPASE ADD 10ML ADULT MULTIVITAMINS TO TPN MONITOR CMP, Mg, Phos and Potassium LABS MONITOR FOR REFEEDING SYNDROME MONITOR NaCl RATE ADMINISTRATION VIA IV WHEN TPN IS INITIATED RD WILL CONTINUE TO MONITOR AND FOLLOW UP, THANK YOU. Addendum: 03/15/19 at [address] Amended: Links added.
[2019-03-15] MEDS ORDERED: PHARMACY COMMUNICATION MISC SCH (14:00)
[2019-03-15] MEDS ORDERED: HYDROCORTISONE SOD SUCCINATE 100 MG/2 ML VIAL IV SCH (14:00)
[2019-03-15] MEDS ORDERED: VASOPRESSIN 40 UNITS in SODIUM CHLORIDE 0.9% 40 ML IV SCH (14:00)
[2019-03-15] MEDS ORDERED: SODIUM CHLORIDE 0.9% 1000ML 1,500 ML IV STA (14:20)
--- NOTE | 2019-03-15 14:36 | NUR ---
DC PLAN VISITED WITH PATIENT PATIENT CONFUSED. PATIENT LIVES WITH SPOUSE. INDEPENDENT ABLE TO PERFORM ADL'S. PATIENT HAS NO SERVICES OR DME'S. PENDING DC PLAN PATIENT CRITICAL AT THIS TIME. Addendum: 03/15/19 at 1438 by TANGELA HUTCHISON RN CM Amended: Links added.
--- NOTE | 2019-03-15 15:38 | NUR ---
Dr. Torres notified that the patient looks to be deteriorating with heart rate and blood pressure dropping. also seem to be becoming more lethargic.
[2019-03-15] MEDS ORDERED: NOREPINEPHRINE BITARTRATE 8 MG/NS 250ML IV SCH ×2 (15:45)
--- NOTE | 2019-03-15 16:00 | NUR ---
Dr. Torres at bedside spoke with family at bedside about the patients condition and a decision was made for dnr/dni
[2019-03-15] MEDS ORDERED: MORPHINE SULFATE 2 MG/ML 1ML SYG IVP PRN (16:15)
[2019-03-15] MEDS ORDERED: LORAZEPAM 2 MG/ML 1 ML VIAL IVP PRN (16:15)
--- NOTE | 2019-03-15 18:35 | NUR ---
PRONOUNCEMENT CALLED TO ROOM BY CN, PT IS DNR FAMILY AT BEDSIDE, PT IS UNRESPONSIVE, NO HEART TONES, PUPILS FIXED AND NON REACTIVE. PT PRONOUNCED AT THIS TIME, CN IN ATTENDANCE
[2019-03-16] MEDS ORDERED: SODIUM CHLORIDE 0.9% 500ML 500 ML in SODIUM CHLORIDE 0.9% 500ML 500 ML IV SCH (05:00)
== END 2019-03-15 18:35 | disposition expired | DRG 871 ==
LOC: EDH 15:25 → EDHIP 15:26 → 2CH 03-14 16:58
PROVIDERS: ADMIT Hospitalist; ATTEND Hospitalist
DX: A41.9 Sepsis, unspecified organism (principal); R65.21 Severe sepsis with septic shock; G93.41 Metabolic encephalopathy; J69.0 Pneumonitis due to inhalation of food and vomit; N39.0 Urinary tract infection, site not specified; E44.1 Mild protein-calorie malnutrition; E87.1 Hypo-osmolality and hyponatremia; G93.49 Other encephalopathy; R18.8 Other ascites; R64 Cachexia; Z51.5 Encounter for palliative care; Z66 Do not resuscitate; D69.6 Thrombocytopenia, unspecified; E86.0 Dehydration; E87.5 Hyperkalemia; K59.00 Constipation, unspecified; K76.0 Fatty (change of) liver, not elsewhere classified; K82.8 Other specified diseases of gallbladder; Z68.22 Body mass index [BMI] 22.0-22.9, adult; Z88.6 Allergy status to analgesic agent; Z88.8 Allergy status to other drugs, medicaments and biological substances; Z85.07 Personal history of malignant neoplasm of pancreas; Z82.49 Family history of ischemic heart disease and other diseases of the circulatory system
CPT/HCPCS: 36415; 36600; 71045; 71250; 74176; 80048; 80053; 81001; 82140; 82150; 82533; 82803; 83605; 83690; 83735; 83930; 83935; 84100; 84145; 84300; 84484; 85025; 85610; 85730; 87040; 87077; 87088; 87186; 92610; 93005; 93970; 94640; 94664; A6250; C1751; C1894; G0378; J0456; J0610; J1720; J1956; J2354; J2405; J2543; J3370; J3490; J7030; J7040; P9047